=== PATIENT | male | born 1945 | race African-American/Black ===

== ENCOUNTER 2017-11-15 09:25 | Inpatient (IN) | payer MEDICARE ==
[2017-11-15] MEDS ORDERED: SODIUM CHLORIDE 0.9% 1,000 ML IV STA ×2 (10:33→12:36)
[2017-11-15] MEDS ORDERED: SODIUM CHLORIDE 0.9% 500 ML IV STA (10:33)
[2017-11-15] MEDS ORDERED: HYDROmorphone 0.5 MG/0.5 ML SYRINGE IM STA (10:33)
--- NOTE | 2017-11-15 10:51 | ED ---
Weakness HPI - General Chief complaint: Weakness Stated complaint: weakness in legs Time Seen by Provider: 11/15/17 10:07 Source: patient Mode of arrival: wheelchair - History of Present Illness Initial comments: This 72-year-old -[place] male presents with a complaint of weakness to his lower extremities. He states that this is been going on for many months. He has a hard time quantifying the timeframe. He does state that it seems worse over the past 2 weeks and then he was extremely weak since yesterday. He apparently is unable to bear any weight on his lower extremities since yesterday. He fell twice yesterday and once today trying to go to the bathroom. She denies any actual injuries. He does complain of some slight pain to his left femoral region. He denies any known head injuries. He does have diabetes but does not check his blood sugars. He is unsure if he has diabetic neuropathy. He denies any known fevers or chills. He is a very poor historian. He does relate that he injured his right shoulder 6 months ago and this is still been causing him pain and he has not had it checked out as of yet. He does utilize tobacco but denies any alcohol or drugs. He states that his only medical problems are diabetes and hypertension and he only takes medications for this. He denies any chest pain or shortness of breath. Upon further questioning, he relates that he was down on the floor for 4 hours yesterday. - Related Data Home Medications Medication Instructions Recorded Confirmed Lisinopril [Zestril] 5 mg PO DAILY 11/15/17 11/15/17 Metoprolol Tartrate [Lopressor] 25 mg PO BID 11/15/17 11/15/17 metFORMIN HCL [Glucophage] 500 mg PO BID 11/15/17 11/15/17 Allergies Allergy/AdvReac Type Severity Reaction Status Date / Time No Known Allergies Allergy Verified 11/15/17 10:07 Review of Systems ROS Statement: Those systems with pertinent positive or pertinent negative responses have been documented in the HPI. ROS Other: All systems not noted in ROS Statement are negative. Past Medical History Past Medical History: Diabetes Mellitus, Hypertension History of Any Multi-Drug Resistant Organisms: None Reported Past Surgical History: No Surgical Hx Reported Past Psychological History: No Psychological Hx Reported Smoking Status: Current every day smoker Past Alcohol Use History: None Reported Past Drug Use History: None Reported General Exam - General Exam Comments Initial Comments: GENERAL: The patient is well nourished and well hydrated. VITAL SIGNS: Heart rate, blood pressure, respiratory rate reviewed as recorded in nurse's notes. EYES: Pupils are round and reactive. Extraocular movements are intact. No conjunctival / lid redness or swelling. ENT: No external evidence of injury, swelling, or ecchymosis. Airway is patent. Throat is clear. NECK: Nontender. No swelling or evidence of injury. No subcutaneous emphysema. Trachea is midline. No thyroid mass. HEART: Regular rate and rhythm. Good peripheral pulses. LUNGS/CHEST: Breath sounds clear and equal bilaterally. No rales, rhonchi, or wheezes. No ecchymosis, subcutaneous emphysema, or tenderness. ABDOMEN: Abdomen soft without tenderness. No palpable masses or organomegaly. No peritoneal signs. No abdominal wall swelling or ecchymosis. EXTREMITIES: There is some slight tenderness noted to the mid left femur. There is mild tenderness noted to the right shoulder with pain upon range of motion. Normal muscle tone and function. No thoracolumbar tenderness. NEUROLOGIC: Sensation is grossly intact. Cranial nerve exam reveals face is symmetrical, tongue is midline, speech is clear. SKIN: No abrasions or ecchymosis is noted. No induration or masses noted. PSYCHIATRIC: Alert and oriented. Appropriate behavior and judgment. Course Vital Signs 11/15/17 11/15/17 09:50 13:06 Temperature 97.9 F Pulse Rate 93 70 Respiratory 18 16 Rate Blood Pressure 172/73 188/77 O2 Sat by Pulse 96 98 Oximetry Medical Decision Making - Medical Decision Making The patient was seen and examined. All diagnostics are reviewed. An IV is started and he is hydrated. The EKG shows a normal sinus rhythm at a rate of 87. There is some nonspecific ST-T wave changes noted in the inferolateral leads. There is evidence of left ventricular hypertrophy. The MA intervals 152 , QRS duration is 74, and the QTC intervals 421. The patient's chest x-ray showed possible mild pulmonary vascular congestion. The x-ray of the left femur is negative for fracture. His AP pelvis x-ray was negative. The computed tomography scan of the brain was also done and this showed some atrophic changes but no acute process. The laboratories reviewed and does show elevation of the troponin, CPK and significant elevation of the CPK. Possibility of some rhabdomyolysis certainly is possible. It does show that his renal function studies are elevated. He has some mild anemia. Exact cause of his weakness is not definitively determined. It is felt, however, that he would benefit from admission to the hospital for further treatment. He is agreeable. Case is discussed with Dr. Valentine and he is agreeable with admission with cardiac consultation and echocardiogram. - Lab Data Result diagrams: 11/15/17 11:20 11/15/17 11:20 Lab Results 11/15/17 11/15/17 11/15/17 Range/Units 11:20 11:20 11:20 WBC 8.2 (3.8-10.6) k/uL RBC 5.22 (4.30-5.90) m/uL Hgb 11.7 L (13.0-17.5) gm/dL Hct 38.8 L (39.0-53.0) % MCV 74.3 L (80.0-100.0) fL MCH 22.3 L (25.0-35.0) pg MCHC 30.1 L (31.0-37.0) g/dL RDW 17.1 H (11.5-15.5) % Plt Count 120 L (150-450) k/uL Neutrophils % 85 % Lymphocytes % 7 % Monocytes % 5 % Eosinophils % 1 % Basophils % 1 % Neutrophils # 7.0 (1.3-7.7) k/uL Lymphocytes # 0.6 L (1.0-4.8) k/uL Monocytes # 0.4 (0-1.0) k/uL Eosinophils # 0.1 (0-0.7) k/uL Basophils # 0.1 (0-0.2) k/uL Hypochromasia Moderate Anisocytosis Slight Microcytosis Moderate PT (9.0-12.0) sec INR (<1.2) APTT (22.0-30.0) sec Sodium 139 (137-145) mmol/L Potassium 4.7 (3.5-5.1) mmol/L Chloride 100 (98-107) mmol/L Carbon Dioxide 27 (22-30) mmol/L Anion Gap 12 mmol/L BUN 23 H (9-20) mg/dL Creatinine 1.58 H (0.66-1.25) mg/dL Est GFR (MDRD) Af Amer 53 (>60 ml/min/1.73 sqM) Est GFR (MDRD) Non-Af 43 (>60 ml/min/1.73 sqM) Glucose 165 H (74-99) mg/dL Calcium 9.3 (8.4-10.2) mg/dL Phosphorus 4.8 H (2.5-4.5) mg/dL Magnesium 1.8 (1.6-2.3) mg/dL Total Bilirubin 0.2 (0.2-1.3) mg/dL AST 66 H (17-59) U/L ALT 39 (21-72) U/L Alkaline Phosphatase 153 H (38-126) U/L Total Creatine Kinase 2324 H (55-170) U/L CK-MB (CK-2) 9.4 H* (0.0-2.4) ng/mL CK-MB (CK-2) Rel Index Troponin I 0.056 H* (0.000-0.034) ng/mL Total Protein 6.9 (6.3-8.2) g/dL Albumin 4.1 (3.5-5.0) g/dL TSH 0.875 (0.465-4.680) mIU/L Urine Color Urine Appearance (Clear) Urine pH (5.0-8.0) Ur Specific [place] (1.001-1.035) Urine Protein (Negative) Urine Glucose (UA) (Negative) Urine Ketones (Negative) Urine Blood (Negative) Urine Nitrite (Negative) Urine Bilirubin (Negative) Urine Urobilinogen (<2.0) mg/dL Ur Leukocyte Esterase (Negative) Urine RBC (0-5) /hpf Urine WBC (0-5) /hpf Ur Squamous Epith Cells (0-4) /hpf Hyaline Casts (0-2) /lpf Urine Mucus (None) /hpf 11/15/17 11/15/17 Range/Units 11:20 13:31 WBC (3.8-10.6) k/uL RBC (4.30-5.90) m/uL Hgb (13.0-17.5) gm/dL Hct (39.0-53.0) % MCV (80.0-100.0) fL MCH (25.0-35.0) pg MCHC (31.0-37.0) g/dL RDW (11.5-15.5) % Plt Count (150-450) k/uL Neutrophils % % Lymphocytes % % Monocytes % % Eosinophils % % Basophils % % Neutrophils # (1.3-7.7) k/uL Lymphocytes # (1.0-4.8) k/uL Monocytes # (0-1.0) k/uL Eosinophils # (0-0.7) k/uL Basophils # (0-0.2) k/uL Hypochromasia Anisocytosis Microcytosis PT 10.4 (9.0-12.0) sec INR 1.1 (<1.2) APTT 26.0 (22.0-30.0) sec Sodium (137-145) mmol/L Potassium (3.5-5.1) mmol/L Chloride (98-107) mmol/L Carbon Dioxide (22-30) mmol/L Anion Gap mmol/L BUN (9-20) mg/dL Creatinine (0.66-1.25) mg/dL Est GFR (MDRD) Af Amer (>60 ml/min/1.73 sqM) Est GFR (MDRD) Non-Af (>60 ml/min/1.73 sqM) Glucose (74-99) mg/dL Calcium (8.4-10.2) mg/dL Phosphorus (2.5-4.5) mg/dL Magnesium (1.6-2.3) mg/dL Total Bilirubin (0.2-1.3) mg/dL AST (17-59) U/L ALT (21-72) U/L Alkaline Phosphatase (38-126) U/L Total Creatine Kinase (55-170) U/L CK-MB (CK-2) (0.0-2.4) ng/mL CK-MB (CK-2) Rel Index Troponin I (0.000-0.034) ng/mL Total Protein (6.3-8.2) g/dL Albumin (3.5-5.0) g/dL TSH (0.465-4.680) mIU/L Urine Color Yellow Urine Appearance Clear (Clear) Urine pH 5.5 (5.0-8.0) Ur Specific [place] 1.013 (1.001-1.035) Urine Protein 2+ H (Negative) Urine Glucose (UA) Negative (Negative) Urine Ketones Trace H (Negative) Urine Blood Large H (Negative) Urine Nitrite Negative (Negative) Urine Bilirubin Negative (Negative) Urine Urobilinogen <2.0 (<2.0) mg/dL Ur Leukocyte Esterase Negative (Negative) Urine RBC 6 H (0-5) /hpf Urine WBC 3 (0-5) /hpf Ur Squamous Epith Cells <1 (0-4) /hpf Hyaline Casts 3 H (0-2) /lpf Urine Mucus Rare H (None) /hpf Disposition Clinical Impression: Lower extremity weakness, Inability to walk, Hypertension, Diabetes, Rhabdomyolysis, Renal insufficiency, Anemia, Recurrent falls Disposition: ADMITTED IP TO THIS [facility] Condition: Fair Time of Disposition: 14:06 Decision Date: 11/15/17 Decision Time: 14:06
[2017-11-15 11:39] LABS: Anisocytosis Slight; Basophils # (A) 0.1 k/uL (0-0.2); Basophils % (A) 1 %; Eosinophils # (A) 0.1 k/uL (0-0.7); Eosinophils % (A) 1 %; HCT 38.8 % (39.0-53.0); HGB 11.7 gm/dL (13.0-17.5); Hypochromasia Moderate; Lymphocytes # (A) 0.6 k/uL (1.0-4.8); Lymphocytes % (A) 7 %; MCH 22.3 pg (25.0-35.0); MCHC 30.1 g/dL (31.0-37.0); MCV 74.3 fL (80.0-100.0); Mean Platelet Volume 6.5; Microcytosis Moderate; Monocytes # (A) 0.4 k/uL (0-1.0); Monocytes % (A) 5 %; Neutrophils % (A) 85 %; Platelet Count 120 k/uL (150-450); RBC 5.22 m/uL (4.30-5.90); RDW 17.1 % (11.5-15.5); WBC 8.2 k/uL (3.8-10.6)
[2017-11-15 11:48] LABS: Albumin 4.1 g/dL (3.5-5.0); Calcium 9.3 mg/dL (8.4-10.2); Magnesium 1.8 mg/dL (1.6-2.3); Phosphorus 4.8 mg/dL (2.5-4.5); Potassium 4.7 mmol/L (3.5-5.1); Total Bilirubin 0.2 mg/dL (0.2-1.3); Total Protein 6.9 g/dL (6.3-8.2)
[2017-11-15 12:17] LABS: INR 1.1 (<1.2); Prothrombin Time 10.4 sec (9.0-12.0)
[2017-11-15 12:23] LABS: Creatine Kinase MB 9.4 ng/mL (0.0-2.4); Troponin I 0.056 ng/mL (0.000-0.034)
--- NOTE | 2017-11-15 12:24 | XR ---
EXAMINATION TYPE: XR chest 2V DATE OF EXAM: 11/15/2017 COMPARISON: NONE HISTORY: Shortness of breath TECHNIQUE: Frontal and lateral views of the chest are obtained. FINDINGS: Scattered senescent parenchymal changes noted. Hyperinflation compatible with COPD. No evidence for infiltrate. No evidence for atelectasis. Mild cardiomegaly without overt failure. Mild pulmonary venous congestion suggested. Mediastinal structures are stable and grossly unremarkable. No evidence for hilar prominence. Degenerative changes dorsal spine. IMPRESSION: 1. Mild cardiomegaly without overt failure. Mild pulmonary venous congestion suggested.
--- NOTE | 2017-11-15 12:26 | XR ---
EXAMINATION TYPE: XR pelvis AP view DATE OF EXAM: 11/15/2017 CLINICAL HISTORY: pain TECHNIQUE: Single view the pelvis is submitted. FINDINGS: No evidence for fracture, dislocation or bony lesion. Joint spaces are well-preserved. S I joints appear symmetric. IMPRESSION: 1. No acute fracture or dislocation seen. ICD 10 NO FRACTURE, INITIAL EVALUATION
--- NOTE | 2017-11-15 12:32 | XR ---
EXAMINATION TYPE: XR femur LT DATE OF EXAM: 11/15/2017 CLINICAL HISTORY: pain TECHNIQUE: Two views of the left femur are obtained. COMPARISON: None. FINDINGS: There is no acute fracture or dislocation seen of the femur. The hip and knee joints jacqueline ear within normal limits. The overlying soft tissue appears unremarkable. IMPRESSION: There is no acute fracture or dislocation seen of the femur. ICD 10 NO FRACTURE, INITIAL EVALUATION
[2017-11-15] MEDS ORDERED: ASPIRIN 81 MG PO STA (12:35)
[2017-11-15] MEDS ORDERED: NITROGLYCERIN OINT 1 INCH/GM PACKET TOPICAL STA (12:35)
--- NOTE | 2017-11-15 12:50 | CT ---
EXAMINATION TYPE: CT brain wo con DATE OF EXAM: 11/15/2017 COMPARISON: NONE HISTORY: Weakness Unenhanced CT of the brain was performed. The ventricles, basal cisterns and sulci overlying the cerebral convexities demonstrate mild enlargem ent. There is no evidence for intracranial hemorrhage or sulcal effacement. There is decreased attenuation about the periventricular white matter and deep white matter of both c erebral hemispheres, compatible with chronic small vessel ischemia. Differential diagnosis does inclu de demyelination. No mass effects are seen.No midline shift. Osseous calvarium is intact. If symptoms persist consider MRI. IMPRESSION: 1. Age related atrophic and chronic small vessel ischemic change without acute intracranial process s een at this time.
[2017-11-15 13:44] LABS: Appearance,Urine Clear (Clear); Bilirubin,Urine Negative (Negative); Blood,Urine Large (Negative); Color,Urine Yellow; Glucose,Urine (UA) Negative (Negative); Hyaline Casts,Urine 3 /lpf (0-2); Ketones,Urine Trace (Negative); Leukocyte Esterase,Urine Negative (Negative); Mucus,Urine Rare /hpf; Nitrite,Urine Negative (Negative); PH, Urine 5.5 (5.0-8.0); Protein,Urine 2+ (Negative); RBC,Urine 6 /hpf (0-5); Specific Gravity,Urine 1.013 (1.001-1.035); Squamous Epithelial Cell,Urine <1 /hpf (0-4); Urobilinogen,Urine <2.0 mg/dL (<2.0); WBC,Urine 3 /hpf (0-5)
[2017-11-15] MEDS ORDERED: HEPARIN SODIUM,PORCINE 5,000 UNIT/ML 1 ML VIAL IV ONE (14:07)
[2017-11-15] MEDS ORDERED: LABETALOL 5 MG/ML VIAL MDV IVP STA (14:07)
[2017-11-15] MEDS ORDERED: HEPARIN SODIUM,PORCINE 5,000 UNIT/ML 1 ML VIAL IV PRN (14:07)
[2017-11-15] MEDS ORDERED: hydrALAZINE HCL 20 MG/ML 1 ML VIAL IVP PRN (14:14)
[2017-11-15] MEDS ORDERED: HEPARIN SOD,PORK IN 0.45% NACL 25,000 UNIT in 0.45% NACL 1 500ML.BAG IV SCH (14:15)
--- NOTE | 2017-11-15 14:40 | XR ---
EXAMINATION TYPE: XR shoulder complete RT DATE OF EXAM: 11/15/2017 CLINICAL HISTORY: pain TECHNIQUE: Three views of the right shoulder are obtained. COMPARISON: None FINDINGS: There is no acute fracture/dislocation evident. Mild AC joint arthropathy. Distal clavicul ar asymmetry relative to the acromion may be congenital in nature or related to prior trauma. The vis ualized ribs are intact and unremarkable. IMPRESSION: 1. There is no acute fracture or dislocation. ICD 10 NO FRACTURE, INITIAL EVALUATION
[2017-11-15] MEDS ORDERED: metFORMIN 500 MG TAB PO SCH (17:30)
[2017-11-15 18:54] LABS: Creatine Kinase MB 20.1 ng/mL (0.0-2.4)
[2017-11-15 18:55] LABS: Troponin I 0.058 ng/mL (0.000-0.034)
[2017-11-15] MEDS: NITROGLYCERIN OINT 1 INCH/GM PACKET TOPICAL SCH (18:59)
[2017-11-15] MEDS: ACETAMINOPHEN TAB 325 MG TAB PO PRN (22:47)
[2017-11-15] MEDS: METOPROLOL TARTRATE 25 MG TAB PO SCH (22:48)
--- NOTE | 2017-11-15 23:23 | P.HPIM ---
History of Present Illness H&P Date: 11/15/17 Chief Complaint: Bilateral lower extremity weakness Patient is a 72-year-old male with a known history of hypertension, diabetes type 2 [id number] came to the hospital with complaints of weakness in his both legs. As per the patient returned has been going on for the past few months which is getting worse for the past 2 weeks. Yesterday he fell on the ground due to he was unable to bear his weight. He fell twice yesterday and once today trying to go to the bathroom. He was on the ground apparently for about 4 hours until his son came in. Otherwise a lemons denied any complaints of chest pain or shortness of breath. No fever no chills. Patient has been having cough congestion and cold as well as a runny nose for the past 2 -3 months as per the patient. Patient denied any alcohol abuse. Patient says that he has been taking his diabetic medications regularly. Otherwise patient is a poor historian. No recent travel or sick contacts at home. Patient lives alone by himself. Chest x-ray showed mild vascular congestion CT head showed no acute intracranial process. Is related chronic small vessel ischemic changes noted. CPK level elevated greater than 2K Troponin slightly elevated. TSH within normal limits UA negative Review of Systems Constitutional: Patient denies any fever or chills . Does have lower extremity weakness. Denied any weight loss or loss of appetite.. Abdomen: Patient denied nausea vomiting and diarrhea and abdominal pain. Cardiovascular: Patient denies any chest pain or short of breath no palpitations. Respiratory: patient denied any cough is from production. No shortness of breath Neurologic: Patient does have bilateral lower activity weakness. No numbness or tingling. No upper extremity weakness. No headache. Musculoskeletal: Patient denies any complaints of joint swelling or deformity. Skin: Negative Psychiatric: Negative Endocrine: No heat or cold intolerance. No recent weight gain. Genitourinary: No dysuria or hematuria. All other 14 point ROS negative except the above Past Medical History Past Medical History: Diabetes Mellitus, Hypertension History of Any Multi-Drug Resistant Organisms: None Reported Past Surgical History: No Surgical Hx Reported Past Anesthesia/Blood Transfusion Reactions: No Reported Reaction Smoking Status: Current every day smoker - Past Family History Father History Unknown: Yes Mother History Unknown: Yes Medications and Allergies Home Medications Medication Instructions Recorded Confirmed Type Lisinopril [Zestril] 5 mg PO DAILY 11/15/17 11/15/17 History Metoprolol Tartrate [Lopressor] 25 mg PO BID 11/15/17 11/15/17 History metFORMIN HCL [Glucophage] 500 mg PO BID 11/15/17 11/15/17 History Allergies Allergy/AdvReac Type Severity Reaction Status Date / Time No Known Allergies Allergy Verified 11/15/17 10:07 Physical Exam Vitals: Vital Signs Temp Pulse Resp BP Pulse Ox 11/15/17 14:37 85 18 197/86 95 11/15/17 13:06 70 16 188/77 98 11/15/17 09:50 97.9 F 93 18 172/73 96 Intake and Output 11/15/17 11/15/17 11/15/17 06:59 14:59 22:59 Other: Weight 58.967 kg Patient Weight 11/16/17 06:59 Weight 58.967 kg PHYSICAL EXAMINATION: Patient is lying in the bed comfortably, no acute distress, awake alert and oriented.. HEENT: Normocephalic. Neck is supple. Pupils reactive. Nostrils clear. Oral cavity is moist. Ears reveal no drainage. Neck reveals no JVD, carotid bruits, or thyromegaly. CHEST EXAMINATION: Trachea is central. Symmetrical expansion. Lung gregory clear to auscultation and percussion. CARDIAC: Normal S1, S2 with no gallops. No murmurs ABDOMEN: Soft. Bowel sounds normal. No organomegaly. No abdominal bruits. Extremities: reveal no edema. No clubbing or cyanosis Neurologically awake, alert, oriented x3 with well-coordinated movements. Muscle strength 4 out of 5 on bilateral lower extremity. No focal deficits noted Skin: No rash or skin lesions. Psychiatric: Cooperative. Nonsuicidal Musculoskeletal: No joint swelling or deformity. Normal range of motion. Results CBC & Chem 7: 11/15/17 11:20 11/15/17 11:20 Labs: Abnormal Lab Results - Last 24 Hours (Table) 11/15/17 11/15/17 11/15/17 Range/Units 11:20 11:20 11:20 Hgb 11.7 L (13.0-17.5) gm/dL Hct 38.8 L (39.0-53.0) % MCV 74.3 L (80.0-100.0) fL MCH 22.3 L (25.0-35.0) pg MCHC 30.1 L (31.0-37.0) g/dL RDW 17.1 H (11.5-15.5) % Plt Count 120 L (150-450) k/uL Lymphocytes # 0.6 L (1.0-4.8) k/uL BUN 23 H (9-20) mg/dL Creatinine 1.58 H (0.66-1.25) mg/dL Glucose 165 H (74-99) mg/dL Phosphorus 4.8 H (2.5-4.5) mg/dL AST 66 H (17-59) U/L Alkaline Phosphatase 153 H (38-126) U/L Total Creatine Kinase 2324 H (55-170) U/L CK-MB (CK-2) 9.4 H* (0.0-2.4) ng/mL Troponin I 0.056 H* (0.000-0.034) ng/mL Urine Protein (Negative) Urine Ketones (Negative) Urine Blood (Negative) Urine RBC (0-5) /hpf Hyaline Casts (0-2) /lpf Urine Mucus (None) /hpf 11/15/17 Range/Units 13:31 Hgb (13.0-17.5) gm/dL Hct (39.0-53.0) % MCV (80.0-100.0) fL MCH (25.0-35.0) pg MCHC (31.0-37.0) g/dL RDW (11.5-15.5) % Plt Count (150-450) k/uL Lymphocytes # (1.0-4.8) k/uL BUN (9-20) mg/dL Creatinine (0.66-1.25) mg/dL Glucose (74-99) mg/dL Phosphorus (2.5-4.5) mg/dL AST (17-59) U/L Alkaline Phosphatase (38-126) U/L Total Creatine Kinase (55-170) U/L CK-MB (CK-2) (0.0-2.4) ng/mL Troponin I (0.000-0.034) ng/mL Urine Protein 2+ H (Negative) Urine Ketones Trace H (Negative) Urine Blood Large H (Negative) Urine RBC 6 H (0-5) /hpf Hyaline Casts 3 H (0-2) /lpf Urine Mucus Rare H (None) /hpf Thrombosis Risk Factor Assmnt - DVT/VTE Prophylaxis DVT/VTE Prophylaxis: Pharmacologic Prophylaxis ordered Assessment and Plan Assessment: Status post fall due to bilateral lower admitted weakness. Exact etiology unknown. CT head negative for any acute CVA Severe rhabdomyolysis Elevated troponin level. Likely due to rhabdo and possible NSTEMI Hypertension Diabetes type 2 [id number] Microcytic anemia. Rule out iron deficiency Acute kidney injury. Likely prerenal. Possible ATN DVT prophylaxis. Plan: Patient be continued on gentle hydration due to mild pulmonary vascular congestion. 2-D echo was ordered to rule out CHF. We will check BNP level Cardiology was consulted for elevated troponin level and heparin drip was started. Iron profile will be ordered. TSH within normal limits. Continue with CPK level monitoring and renal function follow-up. Continue the home medications. Check his B A1c. Further recommendations based on the clinical course. Prognosis is guarded with multiple medical problems and comorbid conditions Time with Patient: Greater than 30
[2017-11-16 00:53] LABS: Creatine Kinase MB 11.6 ng/mL (0.0-2.4)
[2017-11-16 00:54] LABS: Troponin I 0.057 ng/mL (0.000-0.034)
[2017-11-16] MEDS: NITROGLYCERIN OINT 1 INCH/GM PACKET TOPICAL SCH (04:41)
[2017-11-16] MEDS: SODIUM CHLORIDE 0.9% 1,000 ML IV SCH ×3 (04:42→13:32)
[2017-11-16] MEDS: ACETAMINOPHEN TAB 325 MG TAB PO PRN (04:42)
[2017-11-16] MEDS ORDERED: FUROSEMIDE 10 MG/ML 4 ML VIAL ONE (04:51)
[2017-11-16] MEDS ORDERED: FUROSEMIDE 10 MG/ML 4 ML VIAL IV STA ×2 (04:54→07:53)
[2017-11-16] MEDS ORDERED: ALPRAZolam 0.25 MG TAB PO PRN (04:57)
--- NOTE | 2017-11-16 05:22 | XR ---
EXAM: XR Chest, 1 View CLINICAL HISTORY: Dyspnea TECHNIQUE: Frontal view of the chest. COMPARISON: Chest x-ray dated 11/15/2017 FINDINGS: Lungs: Airspace opacities in the mid to upper lungs. No focal consolidation. Pleural space: No pleural effusion or pneumothorax. Heart: Unremarkable. No cardiomegaly. Mediastinum: Unremarkable. Bones/joints: Degenerative changes in the osseous structures. IMPRESSION: Airspace opacities in the mid to upper lungs likely representing an inflammatory or infectious process and less likely pulmonary vascular congestion.
[2017-11-16 05:42] LABS: Anisocytosis Slight; Basophils # (A) 0.1 k/uL (0-0.2); Basophils % (A) 1 %; Eosinophils % (A) 0 %; HGB 11.4 gm/dL (13.0-17.5); Hypochromasia Marked; Lymphocytes # (A) 2.6 k/uL (1.0-4.8); Lymphocytes % (A) 24 %; MCH 22.2 pg (25.0-35.0); MCHC 29.9 g/dL (31.0-37.0); MCV 74.1 fL (80.0-100.0); Mean Platelet Volume 9.9; Microcytosis Moderate; Monocytes # (A) 0.5 k/uL (0-1.0); Monocytes % (A) 4 %; Neutrophils # (A) 7.4 k/uL (1.3-7.7); Neutrophils % (A) 69 %; Platelet Count 128 k/uL (150-450); RBC 5.12 m/uL (4.30-5.90); RDW 18.5 % (11.5-15.5); WBC 10.8 k/uL (3.8-10.6)
[2017-11-16 05:48] LABS: Glucose,Whole Blood 315 mg/dL (75-99)
[2017-11-16 05:52] LABS: Anion Gap 11 mmol/L; Blood Urea Nitrogen 22 mg/dL (9-20); Calcium 8.4 mg/dL (8.4-10.2); Carbon Dioxide 23 mmol/L (22-30); Chloride 106 mmol/L (98-107); Cholesterol 228 mg/dL (<200); Glucose 217 mg/dL (74-99); HDL Cholesterol 77 mg/dL (40-60); LDL Cholesterol,Calculated 123 mg/dL (0-99); Potassium 4.3 mmol/L (3.5-5.1); Sodium 140 mmol/L (137-145); Triglycerides 138 mg/dL (<150)
[2017-11-16] MEDS ORDERED: PHENYLEPHRINE-0.9% NACL SYG 1 MG/10 ML SYRINGE ONE (06:00)
[2017-11-16] MEDS ORDERED: PROPOFOL 10 MG/ML 20 ML VIAL IV ONE (06:00)
[2017-11-16] MEDS ORDERED: MIDAZOLAM 2 MG/2 ML VIAL ONE (06:00)
[2017-11-16] MEDS ORDERED: SUCCINYLCHOLINE CHLORIDE 100 MG/5 ML SYR IV ONE (06:00)
[2017-11-16] MEDS ORDERED: NALOXONE 0.4 MG/ML 1 ML VIAL IV PRN (06:13)
[2017-11-16] MEDS ORDERED: PROPOFOL 100 ML IV ONE (06:13)
[2017-11-16 06:17] LABS: Glucose,Whole Blood 251 mg/dL (75-99)
[2017-11-16 06:28] LABS: Creatine Kinase 7814 U/L (55-170)
[2017-11-16] MEDS: PROPOFOL 1,000 MG in EMPTY BAG 1 BAG IV SCH ×2 (06:30→15:30)
[2017-11-16 06:32] LABS: ABG Base Excess -4.4 mmol/L; ABG HCO3 23 mmol/L (21-25); ABG PCO2 61 mmHg (35-45); ABG PO2 76 mmHg (83-108); ABG TCO2 24 mmol/L (19-24)
[2017-11-16 06:45] LABS: Magnesium 1.6 mg/dL (1.6-2.3); Phosphorus 3.8 mg/dL (2.5-4.5)
--- NOTE | 2017-11-16 07:09 | XR ---
EXAM: XR Chest, 1 View CLINICAL HISTORY: Tube placement TECHNIQUE: Frontal view of the chest. COMPARISON: 11/16/2017 at 5:03 AM FINDINGS: Lungs: Again seen are airspace opacities within the mid to upper lungs. Pleural space: Unremarkable. No pneumothorax. Heart: Unchanged cardiomediastinal silhouette. Mediastinum: See above. Bones/joints: Unchanged osseous structures. Tubes, lines and devices: Interval placement of endotracheal tube which terminates at the rachel. Recommend retraction by 3 cm Enteric tube is seen coursing the stomach however the tip is not visualized. IMPRESSION: 1. Interval placement of endotracheal tube which terminates at the rachel. Recommend retraction by 3 cm. 2. Enteric tube is seen coursing the stomach however the tip is not visualized. 3. Again seen are airspace opacities of the mid to upper lungs.
[2017-11-16 07:31] LABS: ABG Base Excess -4.5 mmol/L; ABG HCO3 20 mmol/L (21-25); ABG Oxygen Saturation 99.7 % (94-97); ABG PCO2 38 mmHg (35-45); ABG PH 7.35 (7.35-7.45); ABG PO2 206 mmHg (83-108); ABG TCO2 21 mmol/L (19-24)
[2017-11-16] MEDS: IPRATROPIUM-ALBUTEROL 3 ML NEB INHALATION SCH ×5 (08:10→23:40)
[2017-11-16] MEDS ORDERED: ASPIRIN 325 MG TAB PO SCH (09:00)
[2017-11-16] MEDS ORDERED: LISINOPRIL 5 MG TAB PO SCH (09:00)
[2017-11-16] MEDS ORDERED: Magnesium Replacement Protocol 1 EACH MISC MISCELLANE PRN (09:23)
[2017-11-16 09:25] LABS: Glucose,Whole Blood 242 mg/dL (75-99)
--- NOTE | 2017-11-16 09:35 | P.CNPUL ---
History of Present Illness Consult date: 11/16/17 Reason for consult: hypoxemia, abnormal CXR/CT, other Chief complaint: Weakness History of present illness: Consult dated 11/16/2017 72-year-old black male who presented to the hospital with complaints of weakness in his lower extremities. The patient apparently had multiple falls at home. The weakness apparently was worse over the last couple weeks. He presented with an episode of rhabdomyolysis and subsequently went on to develop renal fire with fluid overload. The patient apparently had progressive shortness of breath out on the floor and sometime early this morning went into chencho distress. He was placed on BiPAP therapy and percent oxygen by the hospitalist. Subsequent to that, he was moved to the ICU but because of progressive decline in his respiratory status, he required intubation and mechanical ventilation. I put him on the ventilator at the assist control mode , rate of 20 tidal volume 400 and FiO2 100% and PEEP of 5. The patient currently is down to 50% FiO2. The rest of the studies of the same. The patient's currently on diprovan or propofol at 40 mics per kilogram per minute. Also receiving a saline IV at 20 mL an hour. Her blood gases prior to intubation included a PaO2 of 76 a PaCO2 of 61 and a pH of 7.2. Post intubation , PaO2 was 206 PaCO2 was 38 and pH of 7.35. The second blood gas was consistent with hyperoxia and a mild metabolic acidosis. Review of Systems ROS unobtainable: due to endotracheal tube Past Medical History Past Medical History: Diabetes Mellitus, Hypertension History of Any Multi-Drug Resistant Organisms: None Reported Past Surgical History: No Surgical Hx Reported Past Anesthesia/Blood Transfusion Reactions: No Reported Reaction Smoking Status: Current every day smoker - Past Family History Father History Unknown: Yes Mother History Unknown: Yes Medications and Allergies Home Medications Medication Instructions Recorded Confirmed Type Lisinopril [Zestril] 5 mg PO DAILY 11/15/17 11/15/17 History Metoprolol Tartrate [Lopressor] 25 mg PO BID 11/15/17 11/15/17 History metFORMIN HCL [Glucophage] 500 mg PO BID 11/15/17 11/15/17 History Allergies Allergy/AdvReac Type Severity Reaction Status Date / Time No Known Allergies Allergy Verified 11/15/17 10:07 Physical Exam Osteopathic Statement: *. No significant issues noted on an osteopathic structural exam other than those noted in the History and Physical/Consult. Vitals: Vital Signs Temp Pulse Pulse Resp BP BP Pulse Ox 11/16/17 09:00 107 H 20 112/54 100 11/16/17 08:30 109 H 21 98/56 100 11/16/17 08:12 110 H 11/16/17 08:00 109 H 34 H 116/57 98 11/16/17 07:50 110 H 41 H 121/52 97 11/16/17 07:40 110 H 39 H 122/57 100 11/16/17 07:30 113 H 35 H 117/51 100 11/16/17 07:20 112 H 100 11/16/17 07:10 113 H 100 11/16/17 07:00 115 H 112/55 100 11/16/17 06:50 116 H 98/60 97 11/16/17 06:40 113 H 45 H 144/64 98 11/16/17 06:30 122 H 45 H 106/58 97 11/16/17 06:20 122 H 45 H 91/55 96 11/16/17 06:10 144 H 45 H 214/118 96 11/16/17 06:00 102 F H 144 H 45 H 11/16/17 05:59 142 H 11/16/17 04:00 101.5 F H 109 H 24 214/90 95 11/16/17 00:00 97.6 F 93 20 172/110 95 11/15/17 20:00 98.0 F 89 22 147/79 100 11/15/17 17:55 98.9 F 82 18 146/80 100 11/15/17 17:51 97.9 F 72 18 156/68 100 11/15/17 17:23 72 18 156/68 100 11/15/17 16:00 75 18 180/84 99 11/15/17 14:37 85 18 197/86 95 11/15/17 13:06 70 16 188/77 98 11/15/17 09:50 97.9 F 93 18 172/73 96 Intake and Output 11/15/17 11/16/17 11/16/17 22:59 06:59 14:59 Intake Total 19.25 Output Total 400 600 80 Balance -400 -600 -60.75 Intake: IV 10 Sodium Chloride 0.9% 1, 10 000 ml @ 100 mls/hr IV . Q10H [facility] Rx#:[id number] Intake, IV Titration 9.25 Amount Propofol 1,000 mg In 9.25 Empty Bag 1 bag @ Titrate IV .Q0M [facility] Rx#: [id number] Output: Urine 400 600 80 Other: Voiding Method Urinal Urinal # Voids 1 Weight 58.967 kg 60.6 kg No acute distress. The patient is sedated. The patient is on the ventilator. There is an orally placed NG tube and endotracheal tube noted. HEENT examination is grossly unremarkable. Mucous membranes are moist. No oral lesions. Neck supple. Full range of motion. No adenopathy thyromegaly or neck vein distention. Cardiovascular examination reveals regular rhythm rate. S1-S2 normal. No S3 or S4. No discernible murmur noted. Lungs reveal some bilateral breath sounds. There are coarse bilateral rhonchi and bilateral crackles. No wheezes. Breath sounds are equal bilaterally.. Abdomen soft bowel sounds are heard. No masses or tenderness. Extremities are intact. No cyanosis clubbing or edema. Skin is without rash or lesion. Neurologic examination cannot be performed. Results - Laboratory Findings CBC and BMP: 11/16/17 04:51 11/16/17 04:51 ABG ABG pH 7.35 (7.35-7.45) 11/16/17 07:19 ABG pCO2 38 mmHg (35-45) 11/16/17 07:19 ABG pO2 206 mmHg (83-108) H 11/16/17 07:19 ABG O2 Saturation 99.7 % (94-97) H 11/16/17 07:19 PT/INR, D-dimer PT 10.4 sec (9.0-12.0) 11/15/17 11:20 INR 1.1 (<1.2) 11/15/17 11:20 Abnormal lab findings: Abnormal Labs 11/15/17 11/15/17 11/15/17 11:20 11:20 11:20 WBC Hgb 11.7 L Hct 38.8 L MCV 74.3 L MCH 22.3 L MCHC 30.1 L RDW 17.1 H Plt Count 120 L Lymphocytes # 0.6 L APTT ABG pH ABG pCO2 ABG pO2 ABG HCO3 ABG O2 Saturation BUN 23 H Creatinine 1.58 H Glucose 165 H POC Glucose (mg/dL) Phosphorus 4.8 H AST 66 H Alkaline Phosphatase 153 H Creatine Kinase Total Creatine Kinase 2324 H CK-MB (CK-2) 9.4 H* Troponin I 0.056 H* Cholesterol LDL Cholesterol, Calc HDL Cholesterol Urine Protein Urine Ketones Urine Blood Urine RBC Hyaline Casts Urine Mucus 11/15/17 11/15/17 11/15/17 13:31 18:00 23:54 WBC Hgb Hct MCV MCH MCHC RDW Plt Count Lymphocytes # APTT ABG pH ABG pCO2 ABG pO2 ABG HCO3 ABG O2 Saturation BUN Creatinine Glucose POC Glucose (mg/dL) Phosphorus AST Alkaline Phosphatase Creatine Kinase Total Creatine Kinase 5786 H 6419 H CK-MB (CK-2) 20.1 H* 11.6 H* Troponin I 0.058 H* 0.057 H* Cholesterol LDL Cholesterol, Calc HDL Cholesterol Urine Protein 2+ H Urine Ketones Trace H Urine Blood Large H Urine RBC 6 H Hyaline Casts 3 H Urine Mucus Rare H 11/15/17 11/16/17 11/16/17 23:54 01:20 04:51 WBC 10.8 H Hgb 11.4 L Hct 38.0 L MCV 74.1 L MCH 22.2 L MCHC 29.9 L RDW 18.5 H Plt Count 128 L Lymphocytes # APTT 44.3 H 45.8 H ABG pH ABG pCO2 ABG pO2 ABG HCO3 ABG O2 Saturation BUN Creatinine Glucose POC Glucose (mg/dL) Phosphorus AST Alkaline Phosphatase Creatine Kinase Total Creatine Kinase CK-MB (CK-2) Troponin I Cholesterol LDL Cholesterol, Calc HDL Cholesterol Urine Protein Urine Ketones Urine Blood Urine RBC Hyaline Casts Urine Mucus 11/16/17 11/16/17 11/16/17 04:51 04:51 05:40 WBC Hgb Hct MCV MCH MCHC RDW Plt Count Lymphocytes # APTT 57.9 H ABG pH 7.20 L* ABG pCO2 61 H ABG pO2 76 L ABG HCO3 ABG O2 Saturation 91.0 L BUN 22 H Creatinine Glucose 217 H POC Glucose (mg/dL) Phosphorus AST Alkaline Phosphatase Creatine Kinase 7814 H Total Creatine Kinase CK-MB (CK-2) Troponin I Cholesterol 228 H LDL Cholesterol, Calc 123 H HDL Cholesterol 77 H Urine Protein Urine Ketones Urine Blood Urine RBC Hyaline Casts Urine Mucus 11/16/17 11/16/17 11/16/17 05:45 06:16 07:19 WBC Hgb Hct MCV MCH MCHC RDW Plt Count Lymphocytes # APTT ABG pH ABG pCO2 ABG pO2 206 H ABG HCO3 20 L ABG O2 Saturation 99.7 H BUN Creatinine Glucose POC Glucose (mg/dL) 315 H 251 H Phosphorus AST Alkaline Phosphatase Creatine Kinase Total Creatine Kinase CK-MB (CK-2) Troponin I Cholesterol LDL Cholesterol, Calc HDL Cholesterol Urine Protein Urine Ketones Urine Blood Urine RBC Hyaline Casts Urine Mucus - Diagnostic Findings Chest x-ray: image reviewed (Labs x-rays a medications are all reviewed.) Assessment and Plan (1) Fluid overload Current Visit: Yes Status: Acute Code(s): E87.70 - FLUID OVERLOAD, UNSPECIFIED SNOMED Code(s): 76888049 (2) Acute kidney injury Current Visit: Yes Status: Acute Code(s): N17.9 - ACUTE KIDNEY FAILURE, UNSPECIFIED SNOMED Code(s): 97855764 (3) Anemia Current Visit: Yes Status: Acute Code(s): D64.9 - ANEMIA, UNSPECIFIED SNOMED Code(s): 139120238 (4) Diabetes Current Visit: Yes Status: Acute Code(s): E11.9 - TYPE 2 DIABETES MELLITUS WITHOUT COMPLICATIONS SNOMED Code(s): 38778554 (5) Hypertension Current Visit: Yes Status: Acute Code(s): I10 - ESSENTIAL (PRIMARY) HYPERTENSION SNOMED Code(s): 33015436 (6) Lower extremity weakness Current Visit: Yes Status: Acute Code(s): R29.898 - OTH SYMPTOMS AND SIGNS INVOLVING THE MUSCULOSKELETAL SYSTEM SNOMED Code(s): 615766999 (7) Renal insufficiency Current Visit: Yes Status: Acute Code(s): N28.9 - DISORDER OF KIDNEY AND URETER, UNSPECIFIED SNOMED Code(s): 541620907 (8) Rhabdomyolysis Current Visit: Yes Status: Acute Code(s): M62.82 - RHABDOMYOLYSIS SNOMED Code(s): 934771805 Plan: Plan dated 11/16/2017 The patient will remain on the ventilator. Vent settings have been adjusted accordingly. We'll make sure the patient is on GI and DVT prophylaxis. We'll get nutrition started right away. The FiO2 was dropped from 100 to 50%. Additional recommendations and suggestions are forthcoming. Endotracheal tube was put pulled back 2 cm. Nephrology consultation. The patient be started on enteral nutrition. Labs x-rays a medications are all reviewed. Time with Patient: Greater than 30
[2017-11-16] MEDS ORDERED: SODIUM CHLORIDE 0.9% 1,000 ML IV ONE (09:58)
[2017-11-16] MEDS: INSULIN ASPART 100 UNIT/ML 1 ML 10 ML VIAL SQ SCH ×5 (10:04→23:44)
[2017-11-16] MEDS: MAGNESIUM SULFATE-D5W PMX 1 GM in DEXTROSE/WATER 1 100ML.BAG IVPB SCH ×2 (10:05→11:01)
--- NOTE | 2017-11-16 10:11 | ECHOF ---
Referral Reason:chf MEASUREMENTS -------- HEIGHT: 165.1 cm WEIGHT: 59.0 kg BP: IVSd: 1.3 cm (0.6 - 1.1) LVIDd: 3.8 cm (3.9 - 5.3) LVPWd: 1.4 cm (0.6 - 1.1) IVSs: 1.4 cm LVIDs: 3.2 cm LVPWs: 1.6 cm LA Diam: 4.0 cm (2.7 - 3.8) Ao Diam: 2.8 cm (2.0 - 3.7) AV Cusp: 1.5 cm (1.5 - 2.6) LA Diam: 3.8 cm (2.7 - 3.8) MV EXCURSION: 14.881 mm (> 18.000) MV EF SLOPE: 89 mm/s (70 - 150) EPSS: 0.9 cm MV E Jose Armando: 0.80 m/s MV DecT: 147 ms MV A Jose Armando: 0.73 m/s MV E/A Ratio: 1.10 AR PHT: 371 ms RAP: 5.00 mmHg RVSP: 35.00 mmHg FINDINGS -------- Sinus rhythm. This was a technically good study. The left ventricular size is normal. There is moderate concentric left ventricular hypertrophy. O verall left ventricular systolic function is low-normal with, an EF between 50 - 55 %. The right ventricle is normal in size. The left atrial size is normal. The right atrial size is normal. There is mild aortic valve sclerosis. There is [id number]-[id number] aortic regurgitation. Mild mitral annular calcification present. Mild mitral regurgitation is present. Mild tricuspid regurgitation present. There is mild pulmonary hypertension. The right ventricular systolic pressure, as measured by Doppler, is 35.00mmHg. Trace/mild (physiologic) pulmonic regurgitation. The aortic root size is normal. There is no pericardial effusion. CONCLUSIONS -------- 1. The left ventricular size is normal. 2. There is moderate concentric left ventricular hypertrophy. 3. Overall left ventricular systolic function is low-normal with, an EF between 50 - 55 %. 4. There is mild aortic valve sclerosis. 5. There is [id number]-[id number] aortic regurgitation. 6. Mild mitral annular calcification present. 7. Mild mitral regurgitation is present. 8. Mild tricuspid regurgitation present. 9. There is mild pulmonary hypertension. 10. The right ventricular systolic pressure, as measured by Doppler, is 35.00mmHg. 11. Trace/mild (physiologic) pulmonic regurgitation. 12. The aortic root size is normal. 13. There is no pericardial effusion. STUNT PERSON: Mary Boyer RDCS
--- NOTE | 2017-11-16 10:15 | CONS ---
CONSULTATION Mr. Samuels is a 72-year-old male who was admitted through the emergency room with symptoms of progressive weakness, lack of energy, was found by his son on the bathroom. The detail of the history is quite limited. There is a no clear documentation of syncope. During the night, patient became more dyspneic and requiring mechanical ventilation. He is intubated and sedated at this time. He is in sinus mechanism. There is no evidence of tachycardia or bradycardia. There are no old records available for evaluation. It is unclear if the patient had syncopal episode or had chest discomfort. Apparently, he has been feeling progressively weak over the last few months according to the records, unable to wear bear his weight and he has fallen. MEDICATION: At the time of presentation included metoprolol tartrate 25 mg twice a day, Zestril 5 mg daily and metformin 500 mg twice a day. REVIEW OF SYSTEMS: Not obtainable. PHYSICAL EXAMINATION: He is a 72-year-old male, intubated, sedated. Thin body mass. Was hypertensive on presentation, at this time after intubation his blood pressure 116/50 with a heart rate in the low 100s with sinus tachycardia. HEAD: Normocephalic. Eyes sclerae nonicteric. NECK: No bruit. LUNGS: No wheezes or rales anteriorly. HEART: Regular rate and rhythm, S1, S2. No S3. No rub or gallop appreciated. ABDOMEN: Soft. No organomegaly. Positive bowel sounds. EXTREMITIES: No edema, +1 distal pulses. LAB DATA: Revealed a chest x-ray that shows upper lobe possible infiltrate on top of congestion. His EKG revealed a sinus mechanism with no acute ST-segment changes and evidence of left ventricular hypertrophy. His lab data revealed a hemoglobin of 11.4, white blood cell of 10.8. His BUN and creatinine are 22 and 1.2. His CK enzymes on presentation 2,324 up to 7,814. His troponin 0.056, 0.058, 0.057. NT proBNP is 1,050. His BUN creatinine 23 and 1.58 on presentation, better now. IMPRESSION: 1. Respiratory failure with possible pneumonia on top of congestion. 2. Progressive weakness, etiology unclear. 3. Elevated CK enzyme consistent with rhabdomyolysis. The elevation of his troponin is nondiagnostic. 4. Prior history of hypertension. 5. Prior history of diabetes mellitus. RECOMMENDATION: From the cardiac standpoint, I will review the results of his echocardiogram. Patient received a dose of diuretics. Will need to follow his renal function very closely because he may require hydration because of the elevation of his CK. I will hold his Zestril at this time. Continue the beta nathaniel. Will continue on the nitrate. Follow his heart rate and blood pressure closely and depending on his progress, further recommendation will be made. Thank you for this consult. Will follow with you end. VIOLET / HOOD: [id number] /
[2017-11-16] MEDS ORDERED: SODIUM CHLORIDE 0.9% 500 ML IV ONE (11:55)
--- NOTE | 2017-11-16 12:17 | CDI ---
Last Revision, October 2017 Documentation Clarification Form Date: 11/16/2017 11:58:00 AM From: Nila MahmoodJUANITA, CCDS Admit Date: 11/15/2017 2:07:00 PM Patient Name: Timothy Samuels Visit Number: [id number] Discharge Date: ATTENTION: The Clinical Documentation Specialists (CDI) and [facility] Coding Staff appreciate your assistance in clarifying documentation. Please respond to the clarification below the line at the bottom and electronically sign. The CDI & [facility] Coding staff will review the response and follow-up if needed. Please note: Queries are made part of the Legal Health Record. If you have any questions, please contact the author of this message via ITS. 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 four hours. After admission, the patient developed progressive SOB, went into "chencho" distress and required intubation & ventilation. History/Risk Factors: Hypertension, NIDDM II, current smoker. Clinical Indicators: VS: T 102, P 144, R 45, BP 214/90, PO 95 2Lnc - 96 vent Lung/Breathing assessment: SOB, labored breathing, cough, shallow respirations ABG/CBG: pH: (7.35), pCO2: (38), pHCO3: 20* Treatment: IV Lasix, Albuterol INH, IV MagSulfate, IV fluid bolus x2, vent In your professional opinion, can you please clarify if these findings signify one of the following conditions? Acuity: Acute Chronic Acute on Chronic Specificity: Respiratory Failure, further specify (if known): With hypercapnia? With hypoxia? Respiratory Distress Respiratory Insufficiency Other Diagnosis, please specify Unable to determine Please continue to document in your progress notes and discharge summary in order to capture severity of illness and risk of mortality. Include clinical findings that support your diagnosis. MTDD
[2017-11-16 13:14] LABS: Hemoglobin A1C 8.8 % (4.0-6.0)
[2017-11-16 13:27] LABS: Glucose,Whole Blood 250 mg/dL (75-99)
[2017-11-16 16:31] LABS: Iron Saturation 3.38 (15.00-50.00)
[2017-11-16 17:06] LABS: Glucose,Whole Blood 208 mg/dL (75-99)
[2017-11-16] MEDS: METOPROLOL TARTRATE 25 MG TAB PO SCH ×2 (17:31→20:06)
[2017-11-16 20:06] LABS: Glucose,Whole Blood 180 mg/dL (75-99)
--- NOTE | 2017-11-16 22:19 | P.PN ---
Subjective Progress Note Date: 11/16/17 Principal diagnosis: Rhabdomyolysis and acute respiratory failure Patient is a 72-year-old male with a known history of hypertension, diabetes type 2 [id number] came to the hospital with complaints of weakness in his both legs. As per the patient returned has been going on for the past few months which is getting worse for the past 2 weeks. Yesterday he fell on the ground due to he was unable to bear his weight. He fell twice yesterday and once today trying to go to the bathroom. He was on the ground apparently for about 4 hours until his son came in. Otherwise a lemons denied any complaints of chest pain or shortness of breath. No fever no chills. Patient has been having cough congestion and cold as well as a runny nose for the past 2 -3 months as per the patient. Patient denied any alcohol abuse. Patient says that he has been taking his diabetic medications regularly. Otherwise patient is a poor historian. No recent travel or sick contacts at home. Patient lives alone by himself. Chest x-ray showed mild vascular congestion CT head showed no acute intracranial process. Is related chronic small vessel ischemic changes noted. CPK level elevated greater than 2K Troponin slightly elevated. TSH within normal limits UA negative 11/16/2017 Patient became fluid overloaded last night and was transferred to MICU due to acute hypoxic respiratory failure. Currently patient is on mechanical ventilator. Patient is being continued on IV fluids. Cardiology and pulmonary is following. 2-D echo showed normal ejection fraction. BNP is 1050. Troponin is trending down. Heparin has been discontinued. CPK level is still elevated at 7814 Current medications reviewed. Objective - Vital Signs Vital signs: Vital Signs Temp 99.1 F 11/16/17 12:00 Pulse 96 11/16/17 14:30 Resp 27 H 11/16/17 14:30 BP 99/49 11/16/17 14:30 Pulse Ox 100 11/16/17 14:30 Intake & Output 11/15/17 11/16/17 11/16/17 18:59 06:59 18:59 Intake Total 1739.25 Output Total 1000 540 Balance -1000 1199.25 Weight 58.967 kg 60.6 kg 60.6 kg Intake: IV 1730 Sodium Chloride 0.9% 1, 200 000 ml @ 100 mls/hr IV . Q10H [facility] Rx#:[id number] Sodium Chloride 0.9% 1, 1530 000 ml @ 100 mls/hr IV . Q10H [facility] Rx#:[id number] Intake, IV Titration 9.25 Amount Propofol 1,000 mg In 9.25 Empty Bag 1 bag @ Titrate IV .Q0M [facility] Rx#: [id number] Output: Urine 1000 540 Other: Voiding Method Urinal Urinal Indwelling Catheter # Voids 1 - Exam PHYSICAL EXAMINATION: Patient is lying in the bed comfortably, no acute distress, currently on mechanical ventilator HEENT: Normocephalic. Neck is supple. Pupils reactive. Nostrils clear. Oral cavity is moist. Ears reveal no drainage. Neck reveals no JVD, carotid bruits, or thyromegaly. CHEST EXAMINATION: Trachea is central. Symmetrical expansion. Lung gregory clear to auscultation and percussion. CARDIAC: Normal S1, S2 with no gallops. No murmurs ABDOMEN: Soft. Bowel sounds normal. No organomegaly. No abdominal bruits. Extremities: reveal no edema. No clubbing or cyanosis Neurologically: patient is sedated and intubated. No focal deficits noted Skin: No rash or skin lesions. Psychiatric: Could not be assessed Musculoskeletal: No joint swelling or deformity. Normal range of motion. - Labs CBC & Chem 7: 11/16/17 04:51 11/16/17 04:51 Labs: Abnormal Lab Results - Last 24 Hours (Table) 11/15/17 11/15/17 11/15/17 Range/Units 18:00 23:54 23:54 WBC (3.8-10.6) k/uL Hgb (13.0-17.5) gm/dL Hct (39.0-53.0) % MCV (80.0-100.0) fL MCH (25.0-35.0) pg MCHC (31.0-37.0) g/dL RDW (11.5-15.5) % Plt Count (150-450) k/uL APTT 44.3 H (22.0-30.0) sec ABG pH (7.35-7.45) ABG pCO2 (35-45) mmHg ABG pO2 (83-108) mmHg ABG HCO3 (21-25) mmol/L ABG O2 Saturation (94-97) % BUN (9-20) mg/dL Glucose (74-99) mg/dL POC Glucose (mg/dL) (75-99) mg/dL Creatine Kinase (55-170) U/L Total Creatine Kinase 5786 H 6419 H (55-170) U/L CK-MB (CK-2) 20.1 H* 11.6 H* (0.0-2.4) ng/mL Troponin I 0.058 H* 0.057 H* (0.000-0.034) ng/mL Cholesterol (<200) mg/dL LDL Cholesterol, Calc (0-99) mg/dL HDL Cholesterol (40-60) mg/dL 11/16/17 11/16/17 11/16/17 Range/Units 01:20 04:51 04:51 WBC 10.8 H (3.8-10.6) k/uL Hgb 11.4 L (13.0-17.5) gm/dL Hct 38.0 L (39.0-53.0) % MCV 74.1 L (80.0-100.0) fL MCH 22.2 L (25.0-35.0) pg MCHC 29.9 L (31.0-37.0) g/dL RDW 18.5 H (11.5-15.5) % Plt Count 128 L (150-450) k/uL APTT 45.8 H (22.0-30.0) sec ABG pH (7.35-7.45) ABG pCO2 (35-45) mmHg ABG pO2 (83-108) mmHg ABG HCO3 (21-25) mmol/L ABG O2 Saturation (94-97) % BUN 22 H (9-20) mg/dL Glucose 217 H (74-99) mg/dL POC Glucose (mg/dL) (75-99) mg/dL Creatine Kinase 7814 H (55-170) U/L Total Creatine Kinase (55-170) U/L CK-MB (CK-2) (0.0-2.4) ng/mL Troponin I (0.000-0.034) ng/mL Cholesterol 228 H (<200) mg/dL LDL Cholesterol, Calc 123 H (0-99) mg/dL HDL Cholesterol 77 H (40-60) mg/dL 0111/16/17 11/16/17 Range/Units 04:51 05:40 05:45 WBC (3.8-10.6) k/uL Hgb (13.0-17.5) gm/dL Hct (39.0-53.0) % MCV (80.0-100.0) fL MCH (25.0-35.0) pg MCHC (31.0-37.0) g/dL RDW (11.5-15.5) % Plt Count (150-450) k/uL APTT 57.9 H (22.0-30.0) sec ABG pH 7.20 L* (7.35-7.45) ABG pCO2 61 H (35-45) mmHg ABG pO2 76 L (83-108) mmHg ABG HCO3 (21-25) mmol/L ABG O2 Saturation 91.0 L (94-97) % BUN (9-20) mg/dL Glucose (74-99) mg/dL POC Glucose (mg/dL) 315 H (75-99) mg/dL Creatine Kinase (55-170) U/L Total Creatine Kinase (55-170) U/L CK-MB (CK-2) (0.0-2.4) ng/mL Troponin I (0.000-0.034) ng/mL Cholesterol (<200) mg/dL LDL Cholesterol, Calc (0-99) mg/dL HDL Cholesterol (40-60) mg/dL 11/16/17 11/16/17 11/16/17 Range/Units 06:16 07:19 09:23 WBC (3.8-10.6) k/uL Hgb (13.0-17.5) gm/dL Hct (39.0-53.0) % MCV (80.0-100.0) fL MCH (25.0-35.0) pg MCHC (31.0-37.0) g/dL RDW (11.5-15.5) % Plt Count (150-450) k/uL APTT (22.0-30.0) sec ABG pH (7.35-7.45) ABG pCO2 (35-45) mmHg ABG pO2 206 H (83-108) mmHg ABG HCO3 20 L (21-25) mmol/L ABG O2 Saturation 99.7 H (94-97) % BUN (9-20) mg/dL Glucose (74-99) mg/dL POC Glucose (mg/dL) 251 H 242 H (75-99) mg/dL Creatine Kinase (55-170) U/L Total Creatine Kinase (55-170) U/L CK-MB (CK-2) (0.0-2.4) ng/mL Troponin I (0.000-0.034) ng/mL Cholesterol (<200) mg/dL LDL Cholesterol, Calc (0-99) mg/dL HDL Cholesterol (40-60) mg/dL 11/16/17 Range/Units 13:26 WBC (3.8-10.6) k/uL Hgb (13.0-17.5) gm/dL Hct (39.0-53.0) % MCV (80.0-100.0) fL MCH (25.0-35.0) pg MCHC (31.0-37.0) g/dL RDW (11.5-15.5) % Plt Count (150-450) k/uL APTT (22.0-30.0) sec ABG pH (7.35-7.45) ABG pCO2 (35-45) mmHg ABG pO2 (83-108) mmHg ABG HCO3 (21-25) mmol/L ABG O2 Saturation (94-97) % BUN (9-20) mg/dL Glucose (74-99) mg/dL POC Glucose (mg/dL) 250 H (75-99) mg/dL Creatine Kinase (55-170) U/L Total Creatine Kinase (55-170) U/L CK-MB (CK-2) (0.0-2.4) ng/mL Troponin I (0.000-0.034) ng/mL Cholesterol (<200) mg/dL LDL Cholesterol, Calc (0-99) mg/dL HDL Cholesterol (40-60) mg/dL Microbiology - Last 24 Hours (Table) 11/15/17 11:20 Blood Culture - Preliminary Blood No Growth after 24 hours Assessment and Plan Assessment: Acute hypoxic respiratory failure likely due to fluid overload Hypertensive urgency Status post fall due to bilateral lower admitted weakness. CT head negative for any acute CVA Severe rhabdomyolysis Elevated troponin level. Likely due to rhabdo and unlikely NSTEMI. DC'd heparin Hypertension uncontrolled Diabetes type 2 [id number]-wqfikybzw. Uncontrolled his B A1c 8.8 Microcytic anemia. Rule out iron deficiency Acute kidney injury. Likely prerenal. Possible ATN DVT prophylaxis. Plan: Patient will be continued on mechanical ventilator and also on IV fluids. Follow-up CPK level. 2-D echo showed normal ejection fraction. Cardiology and pulmonary is following. Further recommendations based on the clinical course. Prognosis is guarded with multiple medical problems and comorbid conditions. Discussed with his son at bedside in detail. Time with Patient: Greater than 30
[2017-11-16 23:43] LABS: Glucose,Whole Blood 155 mg/dL (75-99)
[2017-11-17 01:10] LABS: Glucose,Whole Blood 146 mg/dL (75-99)
[2017-11-17] MEDS: IPRATROPIUM-ALBUTEROL 3 ML NEB INHALATION SCH ×6 (03:11→23:23)
[2017-11-17 04:04] LABS: Glucose,Whole Blood 137 mg/dL (75-99)
[2017-11-17] MEDS: SODIUM CHLORIDE 0.9% 1,000 ML IV SCH ×3 (04:04→23:56)
[2017-11-17] MEDS: INSULIN ASPART 100 UNIT/ML 1 ML 10 ML VIAL SQ SCH ×6 (04:04→23:55)
[2017-11-17 05:14] LABS: Albumin 2.6 g/dL (3.5-5.0); Calcium 7.4 mg/dL (8.4-10.2); Magnesium 2.1 mg/dL (1.6-2.3); Phosphorus 4.2 mg/dL (2.5-4.5); Potassium 4.1 mmol/L (3.5-5.1); Total Bilirubin 0.2 mg/dL (0.2-1.3); Total Protein 4.9 g/dL (6.3-8.2)
[2017-11-17 05:16] LABS: Anisocytosis Slight; Basophils % (A) 0 %; Eosinophils % (A) 0 %; HCT 33.1 % (39.0-53.0); Hypochromasia Marked; Lymphocytes # (A) 0.8 k/uL (1.0-4.8); Lymphocytes % (A) 10 %; MCHC 28.9 g/dL (31.0-37.0); MCV 76.3 fL (80.0-100.0); Microcytosis Slight; Monocytes # (A) 0.2 k/uL (0-1.0); Monocytes % (A) 3 %; Neutrophils # (A) 6.6 k/uL (1.3-7.7); Neutrophils % (A) 87 %; RBC 4.33 m/uL (4.30-5.90); RDW 17.3 % (11.5-15.5); WBC 7.7 k/uL (3.8-10.6)
[2017-11-17 05:21] LABS: HGB 9.5 gm/dL (13.0-17.5)
[2017-11-17 05:42] LABS: Anisocytosis (M) Present; Ovalocytes Present; Platelet Count 84 k/uL (150-450)
[2017-11-17 06:09] LABS: ABG HCO3 22 mmol/L (21-25); ABG PCO2 39 mmHg (35-45); ABG PH 7.37 (7.35-7.45); ABG PO2 99 mmHg (83-108)
[2017-11-17] MEDS: PROPOFOL 1,000 MG in EMPTY BAG 1 BAG IV SCH ×3 (06:09→19:13)
[2017-11-17 06:10] LABS: ABG Base Excess -2.6 mmol/L; ABG TCO2 23 mmol/L (19-24)
[2017-11-17 07:52] LABS: Glucose,Whole Blood 119 mg/dL (75-99)
--- NOTE | 2017-11-17 08:28 | PN ---
PROGRESS NOTE Mr. Samuels is a 72-year-old male who presented to the emergency room and admitted because of an episode of unresponsiveness. He was found on the floor by his son. The duration was unclear. He had worsening breathing and with respiratory failure requiring mechanical ventilation. He thus remains intubated. He continued to be on metoprolol tartrate 25 mg twice a day, Lovenox subcu. He is in sinus mechanism and had episodes of sinus tachycardia. His blood pressure has been elevated. His blood pressure is 166/60 with the heart rate in 90s. LUNGS: With scattered wheezes anteriorly. HEART: Regular rate and rhythm, S1, S2. No S3. No rub. ABDOMEN: Soft. No organomegaly. Positive bowel sounds. EXTREMITIES: No edema. LAB DATA: Lab data revealed a hemoglobin of 9.5. His BUN and creatinine 31 and 1.8, which is worsened compared to yesterday. Potassium 4.1. His pH 7.37, pCO2 of 39, pO2 of 99. IMPRESSION: 1. Respiratory failure requiring mechanical ventilation. 2. Acute kidney injury. 3. History of hypertension. 4. Anemia. 5. History of diabetes. 6. Rhabdomyolysis. He had an echocardiogram that revealed an ejection fraction 50% to 55% with mild to moderate aortic and mild mitral and tricuspid regurgitation. RECOMMENDATION: I would recommend continuing on the present therapy. I will add to his regimen nitro paste for improvement in his blood pressure. Patient is receiving IV fluids. We will follow his renal function and depending on his progress, further recommendation will be made. VIOLET / ROSSYN: [id number] /
[2017-11-17] MEDS: PANTOPRAZOLE 40 MG/10 ML VIAL IVP SCH (08:57)
[2017-11-17] MEDS: NITROGLYCERIN OINT 1 INCH/GM PACKET TOPICAL SCH ×3 (08:57→23:56)
[2017-11-17] MEDS: METOPROLOL TARTRATE 25 MG TAB PO SCH ×2 (08:57→20:16)
[2017-11-17] MEDS ORDERED: ENOXAPARIN 40 MG/0.4 ML SYRINGE SQ SCH (09:00)
[2017-11-17] MEDS ORDERED: IPRATROPIUM-ALBUTEROL 3 ML NEB INHALATION PRN (09:12)
[2017-11-17] MEDS: ACETAMINOPHEN TAB 325 MG TAB PO PRN (10:14)
[2017-11-17] MEDS ORDERED: ACETAMINOPHEN TAB 325 MG TAB PO PRN (10:15)
--- NOTE | 2017-11-17 11:23 | XR ---
EXAMINATION TYPE: XR chest 1V portable DATE OF EXAM: 11/17/2017 COMPARISON: Prior chest x-ray 11/16/2017 HISTORY: Intubated TECHNIQUE: Single frontal view of the chest is obtained. FINDINGS: Endotracheal tube is overlying the tracheal air column. NG tube is in place, side-port of the NG tube is above the level of gastroesophageal junction. There is improvement in upper lobe aerat ion. No evident pneumothorax or pleural effusion. Heart size is likely stable accounting for differen nigel in technique and rotation. There are overlying cardiac leads. IMPRESSION: Improvement in aeration. NG tube as described with side-port above the level of the lucero roesophageal junction.
--- NOTE | 2017-11-17 11:37 | P.PN ---
Subjective Progress Note Date: 11/17/17 Principal diagnosis: Hypoxemia, acute respiratory failure, secondary to fluid overload, rhabdomyolysis, acute kidney failure. Consult dated 11/16/2017 72-year-old black male who presented to the hospital with complaints of weakness in his lower extremities. The patient apparently had multiple falls at home. The weakness apparently was worse over the last couple weeks. He presented with an episode of rhabdomyolysis and subsequently went on to develop renal fire with fluid overload. The patient apparently had progressive shortness of breath out on the floor and sometime early this morning went into chencho distress. He was placed on BiPAP therapy and percent oxygen by the hospitalist. Subsequent to that, he was moved to the ICU but because of progressive decline in his respiratory status, he required intubation and mechanical ventilation. I put him on the ventilator at the assist control mode , rate of 20 tidal volume 400 and FiO2 100% and PEEP of 5. The patient currently is down to 50% FiO2. The rest of the studies of the same. The patient's currently on diprovan or propofol at 40 mics per kilogram per minute. Also receiving a saline IV at 20 mL an hour. Her blood gases prior to intubation included a PaO2 of 76 a PaCO2 of 61 and a pH of 7.2. Post intubation , PaO2 was 206 PaCO2 was 38 and pH of 7.35. The second blood gas was consistent with hyperoxia and a mild metabolic acidosis. On 11/17/2017 patient seen in intensive care, remains sedated, and on mechanical ventilator. Vent settings assist control mode with a rate of 20, tidal volume 400, FiO2 of 60%, and PEEP of 5. Maintenance IV fluid is 0.9 normal saline in the 100 ML per hour, Propofol is infusing at 20 mics per kilo per minute. Today's chest x-ray shows improvement in aeration. Today's blood work was reviewed, blood gases were reviewed, pH is 7.37, pCO2 39, pO2 is 99, this was done on 40% FiO2. No evidence of leukocytosis, hemoglobin is 9.5, renal profile shows slight worsening with the BUN of 31, creatinine of 1.8. No acute electrolyte abnormalities. Microbiology has been reviewed, blood urine and sputum cultures are negative so far. Yesterday we gave the patient 40 of Lasix IV, and today's chest x-ray showed significant improvement in the appearance of bilateral upper lobe infiltrates. We will give the patient sedation holiday, and place him on PSV 5/CPAP 5 spontaneous breathing trial. Objective - Vital Signs Vital signs: Vital Signs Temp 100.4 F H 11/17/17 10:00 Pulse 103 H 11/17/17 11:18 Resp 27 H 11/17/17 10:00 BP 131/52 11/17/17 10:00 Pulse Ox 100 11/17/17 10:00 Intake & Output 11/16/17 11/17/17 11/17/17 18:59 06:59 18:59 Intake Total 2381.373 1750 433.262 Output Total 690 805 375 Balance 1691.373 945 58.262 Weight 58.9 kg Intake: IV 2130 1300 225 Sodium Chloride 0.9% 1, 600 1300 225 000 ml @ 100 mls/hr IV . Q10H [facility] Rx#:[id number] Sodium Chloride 0.9% 1, 1530 000 ml @ 100 mls/hr IV . Q10H [facility] Rx#:[id number] Intake, IV Titration 171.373 0 78.262 Amount Propofol 1,000 mg In 171.373 0 78.262 Empty Bag 1 bag @ Titrate IV .Q0M [facility] Rx#: [id number] Tube Feeding 80 300 100 Other 150 30 Output: Urine 690 805 375 Other: Voiding Method Indwelling Catheter Indwelling Catheter - Exam No acute distress. The patient is sedated. The patient is on the ventilator. There is an orally placed NG tube and endotracheal tube noted. HEENT examination is grossly unremarkable. Mucous membranes are moist. No oral lesions. Neck supple. Full range of motion. No adenopathy thyromegaly or neck vein distention. Cardiovascular examination reveals regular rhythm rate. S1-S2 normal. No S3 or S4. No discernible murmur noted. Lungs reveal some bilateral breath sounds. No wheezes. Breath sounds are equal bilaterally.. Abdomen soft bowel sounds are heard. No masses or tenderness. Extremities are intact. No cyanosis clubbing or edema. Skin is without rash or lesion. Neurologic examination cannot be performed. - Labs CBC & Chem 7: 11/17/17 04:37 11/17/17 04:37 Labs: Abnormal Lab Results - Last 24 Hours (Table) 11/16/17 11/16/17 11/16/17 Range/Units 04:51 04:51 13:26 Hgb (13.0-17.5) gm/dL Hct (39.0-53.0) % MCV (80.0-100.0) fL MCH (25.0-35.0) pg MCHC (31.0-37.0) g/dL RDW (11.5-15.5) % Plt Count (150-450) k/uL Lymphocytes # (1.0-4.8) k/uL ABG O2 Saturation (94-97) % Chloride (98-107) mmol/L BUN (9-20) mg/dL Creatinine (0.66-1.25) mg/dL Glucose (74-99) mg/dL POC Glucose (mg/dL) 250 H (75-99) mg/dL Hemoglobin A1c 8.8 H (4.0-6.0) % Calcium (8.4-10.2) mg/dL Iron 9 L (65-175) ug/dL Iron Saturation 3.38 L (15.00-50.00) AST (17-59) U/L Total Protein (6.3-8.2) g/dL Albumin (3.5-5.0) g/dL 11/16/17 11/16/17 11/16/17 Range/Units 17:04 20:04 23:42 Hgb (13.0-17.5) gm/dL Hct (39.0-53.0) % MCV (80.0-100.0) fL MCH (25.0-35.0) pg MCHC (31.0-37.0) g/dL RDW (11.5-15.5) % Plt Count (150-450) k/uL Lymphocytes # (1.0-4.8) k/uL ABG O2 Saturation (94-97) % Chloride (98-107) mmol/L BUN (9-20) mg/dL Creatinine (0.66-1.25) mg/dL Glucose (74-99) mg/dL POC Glucose (mg/dL) 208 H 180 H 155 H (75-99) mg/dL Hemoglobin A1c (4.0-6.0) % Calcium (8.4-10.2) mg/dL Iron (65-175) ug/dL Iron Saturation (15.00-50.00) AST (17-59) U/L Total Protein (6.3-8.2) g/dL Albumin (3.5-5.0) g/dL 11/17/17 11/17/17 11/17/17 Range/Units 01:08 04:02 04:37 Hgb 9.5 L D (13.0-17.5) gm/dL Hct 33.1 L (39.0-53.0) % MCV 76.3 L (80.0-100.0) fL MCH 22.0 L (25.0-35.0) pg MCHC 28.9 L (31.0-37.0) g/dL RDW 17.3 H (11.5-15.5) % Plt Count 84 L (150-450) k/uL Lymphocytes # 0.8 L (1.0-4.8) k/uL ABG O2 Saturation (94-97) % Chloride (98-107) mmol/L BUN (9-20) mg/dL Creatinine (0.66-1.25) mg/dL Glucose (74-99) mg/dL POC Glucose (mg/dL) 146 H 137 H (75-99) mg/dL Hemoglobin A1c (4.0-6.0) % Calcium (8.4-10.2) mg/dL Iron (65-175) ug/dL Iron Saturation (15.00-50.00) AST (17-59) U/L Total Protein (6.3-8.2) g/dL Albumin (3.5-5.0) g/dL 11/17/17 11/17/17 11/17/17 Range/Units 04:37 05:23 07:50 Hgb (13.0-17.5) gm/dL Hct (39.0-53.0) % MCV (80.0-100.0) fL MCH (25.0-35.0) pg MCHC (31.0-37.0) g/dL RDW (11.5-15.5) % Plt Count (150-450) k/uL Lymphocytes # (1.0-4.8) k/uL ABG O2 Saturation 98.0 H (94-97) % Chloride 108 H (98-107) mmol/L BUN 31 H (9-20) mg/dL Creatinine 1.80 H (0.66-1.25) mg/dL Glucose 149 H (74-99) mg/dL POC Glucose (mg/dL) 119 H (75-99) mg/dL Hemoglobin A1c (4.0-6.0) % Calcium 7.4 L (8.4-10.2) mg/dL Iron (65-175) ug/dL Iron Saturation (15.00-50.00) AST 133 H (17-59) U/L Total Protein 4.9 L (6.3-8.2) g/dL Albumin 2.6 L (3.5-5.0) g/dL Microbiology - Last 24 Hours (Table) 11/16/17 08:52 Blood Culture - Preliminary Blood No Growth after 24 hours 11/16/17 08:42 Blood Culture - Preliminary Blood No Growth after 24 hours 11/16/17 17:18 Gram Stain - Preliminary Sputum Sputum Culture - Preliminary 11/16/17 08:00 Urine Culture - Preliminary Urine,Catheterized 11/15/17 11:20 Blood Culture - Preliminary Blood No Growth after 24 hours Assessment and Plan Plan: Assessment: 1. Acute hypoxic respiratory failure secondary to fluid overload, evidence of bilateral upper lobe infiltrates which has improved significantly with administration of IV diuretics on today's exam compared to 1 on 11/16/2017 #2. Acute kidney injury, related to acute tubular necrosis #3. Rhabdomyolysis #4. Elevated troponin, likely due to rhabdomyolysis and possible non-ST elevated OR #5. Diabetes type 2 #6. Hypertension #7. Microcytic anemia Plan: Yesterday we gave a dose of IV Lasix, today's chest x-ray shows improvement in the aeration and improvement in the appearance of the bilateral upper lobe infiltrates seen on chest x-ray from 11/16/2017. Today's blood gas, lab work were reviewed, patient will be given a sedation holiday, we will place him on PSV 5/CPAP 5 on spontaneous breathing trial. Back the IV fluids O.9 normal saline at 50 ML per hour. Continue all other present medical treatments. I performed a history & physical examination of the patient and discussed their management with my nurse practitioner, Crystal Villagomez. I reviewed the nurse practitioner's note and agree with the documented findings and plan of care. Lung sounds are diminished. The findings and the impression was discussed with the patient. I attest to the documentation by the nurse practitioner. Time with Patient: Greater than 30
[2017-11-17] MEDS ORDERED: IBUPROFEN ORAL SUSP 100 MG/5 ML CUP PO PRN (11:52)
[2017-11-17] MEDS ORDERED: VANCOMYCIN 1,000 MG in SODIUM CHLORIDE 0.9% 250 ML IVPB STA (12:50)
[2017-11-17] MEDS: CHLORHEXIDINE GLUCONATE 15 ML CUP MUCOUS MEM SCH ×2 (12:59→20:16)
[2017-11-17 13:05] LABS: Glucose,Whole Blood 220 mg/dL (75-99)
[2017-11-17 13:05] LABS: Glucose,Whole Blood 192 mg/dL (75-99)
[2017-11-17] MEDS: PIPERACILLIN-TAZOBACTAM 3.375 GM in DEXTROSE/WATER 1 50ML.BAG IVPB SCH ×2 (14:12→21:26)
[2017-11-17] MEDS: METOPROLOL TARTRATE 5 MG/5 ML VIAL IVP PRN (14:31)
[2017-11-17] MEDS ORDERED: CISATRACURIUM 2 MG/ML 5 ML VIAL IV ONE (15:06)
[2017-11-17] MEDS ORDERED: LABETALOL 5 MG/ML VIAL MDV IVP STA (15:26)
--- NOTE | 2017-11-17 15:42 | XR ---
EXAMINATION TYPE: XR chest 1V portable DATE OF EXAM: 11/17/2017 COMPARISON: Prior chest x-ray 11/17/2017 earlier time HISTORY: Status post central venous catheter placement TECHNIQUE: Single frontal view of the chest is obtained. FINDINGS: Endotracheal tube is overlying appropriate position. NG tube remains in place with the bj e port cephalad to the level of the gastroesophageal junction. There are overlying cardiac leads. Th ere is been interval placement of a left jugular central venous catheter, distal tip is overlying the level of the cavoatrial junction. No evident pneumothorax or pleural effusion. IMPRESSION: No evident complication status post central venous catheter placement, NG tube is descri bed
--- NOTE | 2017-11-17 16:52 | PCN ---
PROCEDURE NOTE ARTERIAL LINE PLACEMENT: PREOPERATIVE DIAGNOSIS: Frequent blood draws and blood gas monitoring. POSTOPERATIVE DIAGNOSIS: Frequent blood draws and blood gas monitoring. A time-out was completed verifying correct patient, procedure, site, positioning, and implant(s) or special equipment if applicable. Wilber's test was performed to ensure adequate perfusion. The patient's right wrist was prepped and draped in sterile fashion. 1% Lidocaine was used to anesthetize the area. An 18G Arrow arterial line was introduced into the radial artery. The catheter was threaded over the guide wire and the needle was removed with appropriate pulsatile blood return. Blood loss was minimal. The catheter was then sutured in place to the skin and a sterile dressing applied by the nurse. Perfusion to the extremity distal to the point of catheter insertion was checked and found to be adequate. The patient tolerated the procedure well and there were no complications. There was good waveform and blood pressure reading. MMODL / IJN: [id number] /
--- NOTE | 2017-11-17 16:55 | PCN ---
PROCEDURE NOTE TRIPLE LUMEN CATHETER PLACEMENT: PREOPERATIVE DIAGNOSIS: Administration of fluids and pressors. POSTOPERATIVE DIAGNOSIS: Administration of fluids and pressors. A time-out was completed verifying correct patient, procedure, site, positioning, and implant(s) or special equipment if applicable. The patient was placed in a dependent position appropriate for triple lumen catheter placement based on the vein to be cannulated. The patient's left neck was prepped and draped in sterile fashion. 1% Lidocaine was used to anesthetize the surrounding skin area. A triple lumen 9F Cordis catheter was introduced into the left internal jugular vein using Seldinger technique. The catheter was threaded smoothly over the guidewire and appropriate blood return was obtained. Each lumen of the catheter was evacuated of air and flushed with sterile saline. The catheter was then sutured in place to the skin and a sterile dressing applied by the nurse. Perfusion to the extremity distal to the point of catheter insertion was checked and found to be adequate. There was no immediate complication. There was good blood return from all 3 ports of the triple- lumen catheter. A chest x-ray was ordered to rule out pneumothorax and check placement. MMODL / IJN: [id number] /
[2017-11-17] MEDS: CLEVIDIPINE BUTYRATE 25 MG in EMPTY BAG 1 BAG IV SCH ×4 (17:22→23:57)
[2017-11-17 18:28] LABS: Glucose,Whole Blood 166 mg/dL (75-99)
[2017-11-17 20:15] LABS: Glucose,Whole Blood 198 mg/dL (75-99)
[2017-11-17] MEDS: HYDROmorphone 2 MG/ML 1 ML SYRINGE IVP PRN (20:33)
[2017-11-17] MEDS ORDERED: SODIUM CHLORIDE 0.9% 1,000 ML IV ONE (22:40)
--- NOTE | 2017-11-17 23:49 | P.PN ---
Subjective Progress Note Date: 11/17/17 Principal diagnosis: Rhabdomyolysis and acute respiratory failure Patient is a 72-year-old male with a known history of hypertension, diabetes type 2 [id number] came to the hospital with complaints of weakness in his both legs. As per the patient returned has been going on for the past few months which is getting worse for the past 2 weeks. Yesterday he fell on the ground due to he was unable to bear his weight. He fell twice yesterday and once today trying to go to the bathroom. He was on the ground apparently for about 4 hours until his son came in. Otherwise a lemons denied any complaints of chest pain or shortness of breath. No fever no chills. Patient has been having cough congestion and cold as well as a runny nose for the past 2 -3 months as per the patient. Patient denied any alcohol abuse. Patient says that he has been taking his diabetic medications regularly. Otherwise patient is a poor historian. No recent travel or sick contacts at home. Patient lives alone by himself. Chest x-ray showed mild vascular congestion CT head showed no acute intracranial process. Is related chronic small vessel ischemic changes noted. CPK level elevated greater than 2K Troponin slightly elevated. TSH within normal limits UA negative 11/16/2017 Patient became fluid overloaded last night and was transferred to MICU due to acute hypoxic respiratory failure. Currently patient is on mechanical ventilator. Patient is being continued on IV fluids. Cardiology and pulmonary is following. 2-D echo showed normal ejection fraction. BNP is 1050. Troponin is trending down. Heparin has been discontinued. CPK level is still elevated at 7814 11/17/2017 Patient remained on mechanical ventilator. Otherwise chest x-ray showed improved aeration. CPK level is still elevated. Continued on IV fluids. Patient developed fever t today afternoon. Patient was given a dose of vancomycin. No other significant electrolyte abnormalities noted. Discussed with family at bedside. Pulmonary is planning to wean off from the ventilator. Current medications reviewed. Objective - Vital Signs Vital signs: Vital Signs Temp 100.4 F H 11/17/17 10:00 Pulse 105 H 11/17/17 11:35 Resp 27 H 11/17/17 10:00 BP 131/52 11/17/17 10:00 Pulse Ox 100 11/17/17 10:00 Intake & Output 11/16/17 11/17/17 11/17/17 18:59 06:59 18:59 Intake Total 2381.373 1750 433.262 Output Total 690 805 375 Balance 1691.373 945 58.262 Weight 58.9 kg Intake: IV 2130 1300 225 Sodium Chloride 0.9% 1, 600 1300 225 000 ml @ 100 mls/hr IV . Q10H [facility] Rx#:[id number] Sodium Chloride 0.9% 1, 1530 000 ml @ 100 mls/hr IV . Q10H [facility] Rx#:[id number] Intake, IV Titration 171.373 0 78.262 Amount Propofol 1,000 mg In 171.373 0 78.262 Empty Bag 1 bag @ Titrate IV .Q0M [facility] Rx#: [id number] Tube Feeding 80 300 100 Other 150 30 Output: Urine 690 805 375 Other: Voiding Method Indwelling Catheter Indwelling Catheter - Exam PHYSICAL EXAMINATION: Patient is lying in the bed comfortably, no acute distress, currently on mechanical ventilator HEENT: Normocephalic. Neck is supple. Pupils reactive. Nostrils clear. Oral cavity is moist. Ears reveal no drainage. Neck reveals no JVD, carotid bruits, or thyromegaly. CHEST EXAMINATION: Trachea is central. Symmetrical expansion. Lung gregory clear to auscultation and percussion. CARDIAC: Normal S1, S2 with no gallops. No murmurs ABDOMEN: Soft. Bowel sounds normal. No organomegaly. No abdominal bruits. Extremities: reveal no edema. No clubbing or cyanosis Neurologically: patient is sedated and intubated. No focal deficits noted Skin: No rash or skin lesions. Psychiatric: Could not be assessed Musculoskeletal: No joint swelling or deformity. Normal range of motion. - Labs CBC & Chem 7: 11/17/17 04:37 11/17/17 04:37 Labs: Abnormal Lab Results - Last 24 Hours (Table) 11/16/17 11/16/17 11/16/17 Range/Units 04:51 04:51 13:26 Hgb (13.0-17.5) gm/dL Hct (39.0-53.0) % MCV (80.0-100.0) fL MCH (25.0-35.0) pg MCHC (31.0-37.0) g/dL RDW (11.5-15.5) % Plt Count (150-450) k/uL Lymphocytes # (1.0-4.8) k/uL ABG O2 Saturation (94-97) % Chloride (98-107) mmol/L BUN (9-20) mg/dL Creatinine (0.66-1.25) mg/dL Glucose (74-99) mg/dL POC Glucose (mg/dL) 250 H (75-99) mg/dL Hemoglobin A1c 8.8 H (4.0-6.0) % Calcium (8.4-10.2) mg/dL Iron 9 L (65-175) ug/dL Iron Saturation 3.38 L (15.00-50.00) AST (17-59) U/L Total Protein (6.3-8.2) g/dL Albumin (3.5-5.0) g/dL 11/16/17 11/16/17 11/16/17 Range/Units 17:04 20:04 23:42 Hgb (13.0-17.5) gm/dL Hct (39.0-53.0) % MCV (80.0-100.0) fL MCH (25.0-35.0) pg MCHC (31.0-37.0) g/dL RDW (11.5-15.5) % Plt Count (150-450) k/uL Lymphocytes # (1.0-4.8) k/uL ABG O2 Saturation (94-97) % Chloride (98-107) mmol/L BUN (9-20) mg/dL Creatinine (0.66-1.25) mg/dL Glucose (74-99) mg/dL POC Glucose (mg/dL) 208 H 180 H 155 H (75-99) mg/dL Hemoglobin A1c (4.0-6.0) % Calcium (8.4-10.2) mg/dL Iron (65-175) ug/dL Iron Saturation (15.00-50.00) AST (17-59) U/L Total Protein (6.3-8.2) g/dL Albumin (3.5-5.0) g/dL 11/17/17 11/17/17 11/17/17 Range/Units 01:08 04:02 04:37 Hgb 9.5 L D (13.0-17.5) gm/dL Hct 33.1 L (39.0-53.0) % MCV 76.3 L (80.0-100.0) fL MCH 22.0 L (25.0-35.0) pg MCHC 28.9 L (31.0-37.0) g/dL RDW 17.3 H (11.5-15.5) % Plt Count 84 L (150-450) k/uL Lymphocytes # 0.8 L (1.0-4.8) k/uL ABG O2 Saturation (94-97) % Chloride (98-107) mmol/L BUN (9-20) mg/dL Creatinine (0.66-1.25) mg/dL Glucose (74-99) mg/dL POC Glucose (mg/dL) 146 H 137 H (75-99) mg/dL Hemoglobin A1c (4.0-6.0) % Calcium (8.4-10.2) mg/dL Iron (65-175) ug/dL Iron Saturation (15.00-50.00) AST (17-59) U/L Total Protein (6.3-8.2) g/dL Albumin (3.5-5.0) g/dL 11/17/17 11/17/17 11/17/17 Range/Units 04:37 05:23 07:50 Hgb (13.0-17.5) gm/dL Hct (39.0-53.0) % MCV (80.0-100.0) fL MCH (25.0-35.0) pg MCHC (31.0-37.0) g/dL RDW (11.5-15.5) % Plt Count (150-450) k/uL Lymphocytes # (1.0-4.8) k/uL ABG O2 Saturation 98.0 H (94-97) % Chloride 108 H (98-107) mmol/L BUN 31 H (9-20) mg/dL Creatinine 1.80 H (0.66-1.25) mg/dL Glucose 149 H (74-99) mg/dL POC Glucose (mg/dL) 119 H (75-99) mg/dL Hemoglobin A1c (4.0-6.0) % Calcium 7.4 L (8.4-10.2) mg/dL Iron (65-175) ug/dL Iron Saturation (15.00-50.00) AST 133 H (17-59) U/L Total Protein 4.9 L (6.3-8.2) g/dL Albumin 2.6 L (3.5-5.0) g/dL Microbiology - Last 24 Hours (Table) 11/16/17 08:52 Blood Culture - Preliminary Blood No Growth after 24 hours 11/16/17 08:42 Blood Culture - Preliminary Blood No Growth after 24 hours 11/16/17 17:18 Gram Stain - Preliminary Sputum Sputum Culture - Preliminary 11/16/17 08:00 Urine Culture - Preliminary Urine,Catheterized 11/15/17 11:20 Blood Culture - Preliminary Blood No Growth after 24 hours Assessment and Plan Assessment: Acute hypoxic respiratory failure likely due to fluid overload Hypertensive urgency Status post fall due to bilateral lower admitted weakness. CT head negative for any acute CVA Severe rhabdomyolysis Elevated troponin level. Likely due to rhabdo and unlikely NSTEMI. DC'd heparin Hypertension uncontrolled Diabetes type 2 [id number]. Uncontrolled his B A1c 8.8 Microcytic anemia. Rule out iron deficiency Acute kidney injury. Likely prerenal. Possible ATN DVT prophylaxis. Plan: Patient will be continued on mechanical ventilator and also on IV fluids. Follow-up CPK level. 2-D echo showed normal ejection fraction. Cardiology and pulmonary is following. Further recommendations based on the clinical course. Prognosis is guarded with multiple medical problems and comorbid conditions. Discussed with his daughter and son at bedside in detail. Time with Patient: Greater than 30
[2017-11-17 23:54] LABS: Glucose,Whole Blood 191 mg/dL (75-99)
[2017-11-18] MEDS: PROPOFOL 1,000 MG in EMPTY BAG 1 BAG IV SCH ×5 (01:30→22:02)
[2017-11-18] MEDS: CLEVIDIPINE BUTYRATE 25 MG in EMPTY BAG 1 BAG IV SCH ×10 (02:30→22:02)
[2017-11-18] MEDS: IPRATROPIUM-ALBUTEROL 3 ML NEB INHALATION SCH ×6 (03:05→23:21)
[2017-11-18] MEDS: HYDROmorphone 2 MG/ML 1 ML SYRINGE IVP PRN ×5 (03:27→14:19)
[2017-11-18 03:34] LABS: Glucose,Whole Blood 270 mg/dL (75-99)
[2017-11-18] MEDS: INSULIN ASPART 100 UNIT/ML 1 ML 10 ML VIAL SQ SCH ×5 (03:36→22:04)
[2017-11-18 05:06] LABS: Anisocytosis Slight; Basophils % (A) 0 %; Eosinophils % (A) 0 %; HCT 27.8 % (39.0-53.0); HGB 8.7 gm/dL (13.0-17.5); Hypochromasia Marked; Lymphocytes # (A) 0.8 k/uL (1.0-4.8); Lymphocytes % (A) 11 %; MCH 23.9 pg (25.0-35.0); MCHC 31.3 g/dL (31.0-37.0); MCV 76.2 fL (80.0-100.0); Mean Platelet Volume 6.5; Microcytosis Slight; Monocytes # (A) 0.1 k/uL (0-1.0); Monocytes % (A) 2 %; Neutrophils # (A) 6.3 k/uL (1.3-7.7); Neutrophils % (A) 85 %; RBC 3.64 m/uL (4.30-5.90); RDW 17.5 % (11.5-15.5); WBC 7.4 k/uL (3.8-10.6)
[2017-11-18] MEDS: PIPERACILLIN-TAZOBACTAM 3.375 GM in DEXTROSE/WATER 1 50ML.BAG IVPB SCH ×3 (05:13→22:05)
[2017-11-18 05:17] LABS: Platelet Count 77 k/uL (150-450)
[2017-11-18 05:23] LABS: Calcium 7.2 mg/dL (8.4-10.2)
[2017-11-18 05:27] LABS: ABG Base Excess -4.7 mmol/L; ABG HCO3 20 mmol/L (21-25); ABG PCO2 39 mmHg (35-45); ABG PH 7.34 (7.35-7.45); ABG PO2 91 mmHg (83-108); ABG TCO2 21 mmol/L (19-24)
[2017-11-18 05:32] LABS: Potassium 4.4 mmol/L (3.5-5.1)
[2017-11-18 05:33] LABS: Phosphorus 3.8 mg/dL (2.5-4.5)
[2017-11-18 07:59] LABS: Glucose,Whole Blood 188 mg/dL (75-99)
[2017-11-18] MEDS: PANTOPRAZOLE 40 MG/10 ML VIAL IVP SCH (08:16)
[2017-11-18] MEDS: METOPROLOL TARTRATE 25 MG TAB PO SCH ×2 (08:16→22:05)
[2017-11-18] MEDS: CHLORHEXIDINE GLUCONATE 15 ML CUP MUCOUS MEM SCH ×2 (08:17→22:05)
[2017-11-18] MEDS: NITROGLYCERIN OINT 1 INCH/GM PACKET TOPICAL SCH ×2 (08:37→17:00)
--- NOTE | 2017-11-18 09:43 | PN ---
PROGRESS NOTE Mr. Samuels is a 72-year-old male who presented with a fall and was found to be on the floor. He was found to have an elevated CK enzymes. He had respiratory failure, requiring mechanical ventilation. He remains intubated and sedated. He had episode of hypertension. He has continued to be in sinus mechanism. There is no active tachycardia at this point. He was febrile yesterday. His echocardiogram that was obtained recently showed ejection fraction of 50% to 55% with mild to moderate aortic and mild mitral regurgitation. Tricuspid regurgitation with no evidence of pulmonary hypertension. His urine output has been relatively stable. He continues to be on metoprolol 25 mg through the NG tube, nitro paste 1 inch q.8 hours, clevidipine infusion. In addition to the antibiotics. PHYSICAL EXAMINATION: Blood pressure running in the 130s to 150s, with a heart in the 80s. LUNGS: Clear anteriorly. No wheezes or rales appreciated. HEART: Regular rate and rhythm, S1, S2. No S3. No rub. ABDOMEN: Soft. Positive bowel sounds. No organomegaly. EXTREMITIES: No edema. LAB DATA: Revealed hemoglobin of 8.7. BUN and creatinine 36 and 1.8. White blood cell of 7.4. His temperature was elevated yesterday up to 102.7. He is down to 98.3 at this point. IMPRESSION: 1. Respiratory failure with febrile episode. Workup in progress. 2. Worsening renal failure, could be related to the rhabdomyolysis. 3. Hypertension. 4. History of diabetes. 5. Anemia. RECOMMENDATION: From the cardiac standpoint, will continue supportive care. I do not see any evidence for active cardiac issue at this point. He will continue on the intravenous treatment for his blood pressure and depending on his progress, further recommendation will be made. MMODL / IJN: [id number] /
--- NOTE | 2017-11-18 09:51 | XR ---
EXAMINATION TYPE: XR chest 1V portable DATE OF EXAM: 11/18/2017 COMPARISON: 11/17/2017 HISTORY: Shortness of breath TECHNIQUE: Single frontal view of the chest is obtained. FINDINGS: ET tube, NG tube and central line stable. Patchy bilateral areas of predominantly upper lo be infiltrate are stable. No pleural effusion or pneumothorax. IMPRESSION: 1. Patchy perihilar and upper lobe areas of infiltrate. Differential include atypical pneumonia or at ypical interstitial congestion. Correlate clinically. Allergic alveolitis a consideration.
--- NOTE | 2017-11-18 10:12 | P.PN ---
Subjective Progress Note Date: 11/18/17 Principal diagnosis: Hypoxemia, acute respiratory failure, secondary to fluid overload, rhabdomyolysis, acute kidney failure. Consult dated 11/16/2017 72-year-old black male who presented to the hospital with complaints of weakness in his lower extremities. The patient apparently had multiple falls at home. The weakness apparently was worse over the last couple weeks. He presented with an episode of rhabdomyolysis and subsequently went on to develop renal fire with fluid overload. The patient apparently had progressive shortness of breath out on the floor and sometime early this morning went into chencho distress. He was placed on BiPAP therapy and percent oxygen by the hospitalist. Subsequent to that, he was moved to the ICU but because of progressive decline in his respiratory status, he required intubation and mechanical ventilation. I put him on the ventilator at the assist control mode , rate of 20 tidal volume 400 and FiO2 100% and PEEP of 5. The patient currently is down to 50% FiO2. The rest of the studies of the same. The patient's currently on diprovan or propofol at 40 mics per kilogram per minute. Also receiving a saline IV at 20 mL an hour. Her blood gases prior to intubation included a PaO2 of 76 a PaCO2 of 61 and a pH of 7.2. Post intubation , PaO2 was 206 PaCO2 was 38 and pH of 7.35. The second blood gas was consistent with hyperoxia and a mild metabolic acidosis. On 11/17/2017 patient seen in intensive care, remains sedated, and on mechanical ventilator. Vent settings assist control mode with a rate of 20, tidal volume 400, FiO2 of 60%, and PEEP of 5. Maintenance IV fluid is 0.9 normal saline in the 100 ML per hour, Propofol is infusing at 20 mics per kilo per minute. Today's chest x-ray shows improvement in aeration. Today's blood work was reviewed, blood gases were reviewed, pH is 7.37, pCO2 39, pO2 is 99, this was done on 40% FiO2. No evidence of leukocytosis, hemoglobin is 9.5, renal profile shows slight worsening with the BUN of 31, creatinine of 1.8. No acute electrolyte abnormalities. Microbiology has been reviewed, blood urine and sputum cultures are negative so far. Yesterday we gave the patient 40 of Lasix IV, and today's chest x-ray showed significant improvement in the appearance of bilateral upper lobe infiltrates. We will give the patient sedation holiday, and place him on PSV 5/CPAP 5 spontaneous breathing trial. On 11/18/2017 patient seen in follow-up in intensive care. Remains sedated and mechanically ventilated. Sedation holiday is in progress, Diprivan has been on hold for 30 minutes, patient is becoming more tachypneic, slightly more tachycardic, but not following commands, still remains lethargic. Vent settings before meals mode with a rate of 20, tidal volume 400, FiO2 40% and PEEP of 5. Blood gas shows pH of 7.34, pCO2 39, pO2 is 91, and FiO2 of 40%. 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 Yesterday on 11/17/2017 patient had a fever spike, with a temp of 102.7 F. Patient was pancultured again, and placed on a combination of Zosyn and one- time dose vancomycin. Sputum blood and urine cultures remain negative. This morning his temp is 97.8F. Patient remains somewhat hypertensive, with systolic ranging between 150-170's, less than cardiology had placed the patient Clevidipine drip, which is currently running at 12 mg per hour, propofol is on hold, maintenance fluids 0.9 at 50. Patient did receive a bolus of 0.9 normal saline last night for low urine output. This morning his urine output has improved, it is anywhere between 30 and 50 ML per hour. Patient is an 2940 mL positive fluid balance over the last 24 hours. Lab Work was reviewed, WBC within normal limits of 7.4, hemoglobin is 8.7, platelets are down to 77, Lovenox will be discontinued, serum sodium is 139, potassium is 4.4, renal profile is relatively stable, B1 is 36, creatinine is 1.8. Patient placed on PSV 5 and CPAP of 5 spontaneous breathing trial, and extremely tachypneic and tachycardic, mentation very obtunded, nonpurposeful, patient was placed back on assist control mode of ventilation. Not ready for spontaneous breathing trial at this time. We will give 20 of IV Lasix today. He has been adequately fluid resuscitated. Objective - Vital Signs Vital signs: Vital Signs Temp 98.3 F 11/18/17 06:00 Pulse 88 11/18/17 09:07 Resp 22 11/18/17 07:00 BP 114/86 11/18/17 07:00 Pulse Ox 96 11/18/17 07:00 Intake & Output 11/17/17 11/18/17 11/18/17 18:59 06:59 18:59 Intake Total 2644.427 3165.908 242.234 Output Total 1170 470 30 Balance 569.590 0907.908 212.234 Weight 65.9 kg Intake: IV 634 1688.0 68.5 Piperacillin-Tazobactam 3 75.0 12.5 .375 gm In Dextrose/Water 1 50ml.bag @ 12.5 mls/hr IVPB Q8H [facility] Rx#: [id number] Pressure Bag 9 63 6 Sodium Chloride 0.9% 1, 625 550 50 000 ml @ 50 mls/hr IV . Q20H [facility] Rx#:[id number] Sodium Chloride 0.9% 1, 1000 000 ml @ 999 mls/hr IV . Q1H1M [facility] Rx#:[id number] Intake, IV Titration 438.645 423.908 122.734 Amount Clevidipine Butyrate 25 190.633 68.134 mg In Empty Bag 1 bag @ 1 MG/HR 2 mls/hr IV .Q24H [facility] Rx#:[id number] Piperacillin-Tazobactam 3 50 .375 gm In Dextrose/Water 1 50ml.bag @ 12.5 mls/hr IVPB Q8H [facility] Rx#: [id number] Propofol 1,000 mg In 138.645 233.275 54.6 Empty Bag 1 bag @ Titrate IV .Q0M [facility] Rx#: [id number] Vancomycin 1,000 mg In 250 Sodium Chloride 0.9% 250 ml @ 125 mls/hr IVPB ONCE [facility] Rx#:[id number] Tube Feeding 431 765 51 Other 110 90 Output: Urine 1170 470 30 Other: Voiding Method Indwelling Catheter Indwelling Catheter ABP, PAP, CO, CI - Last Documented Arterial Blood Pressure 158/44 - Exam No acute distress. The patient is currently on sedation holiday, remains obtunded, nonpurposeful. The patient is on the ventilator. There is an orally placed NG tube and endotracheal tube noted. HEENT examination is grossly unremarkable. Mucous membranes are moist. No oral lesions. Neck supple. Full range of motion. No adenopathy thyromegaly or neck vein distention. Cardiovascular examination reveals regular rhythm rate. S1-S2 normal. No S3 or S4. No discernible murmur noted. Lungs reveal bilateral breath sounds. No wheezes. Breath sounds are equal bilaterally.. Abdomen soft bowel sounds are heard. No masses or tenderness. Extremities are intact. No cyanosis clubbing or edema. Skin is without rash or lesion. Neurologic examination cannot be performed. - Labs CBC & Chem 7: 11/18/17 04:50 11/18/17 04:50 Labs: Abnormal Lab Results - Last 24 Hours (Table) 11/17/17 11/17/17 11/17/17 Range/Units 04:37 13:00 13:03 RBC (4.30-5.90) m/uL Hgb (13.0-17.5) gm/dL Hct (39.0-53.0) % MCV (80.0-100.0) fL MCH (25.0-35.0) pg RDW (11.5-15.5) % Plt Count (150-450) k/uL Lymphocytes # (1.0-4.8) k/uL ABG pH (7.35-7.45) ABG HCO3 (21-25) mmol/L Chloride (98-107) mmol/L BUN (9-20) mg/dL Creatinine (0.66-1.25) mg/dL Glucose (74-99) mg/dL POC Glucose (mg/dL) 192 H 220 H (75-99) mg/dL Calcium (8.4-10.2) mg/dL Creatine Kinase 20454 H (55-170) U/L CK-MB (CK-2) (0.0-2.4) ng/mL 11/17/17 11/17/17 11/17/17 Range/Units 14:35 18:25 20:13 RBC (4.30-5.90) m/uL Hgb (13.0-17.5) gm/dL Hct (39.0-53.0) % MCV (80.0-100.0) fL MCH (25.0-35.0) pg RDW (11.5-15.5) % Plt Count (150-450) k/uL Lymphocytes # (1.0-4.8) k/uL ABG pH (7.35-7.45) ABG HCO3 (21-25) mmol/L Chloride (98-107) mmol/L BUN (9-20) mg/dL Creatinine (0.66-1.25) mg/dL Glucose (74-99) mg/dL POC Glucose (mg/dL) 166 H 198 H (75-99) mg/dL Calcium (8.4-10.2) mg/dL Creatine Kinase (55-170) U/L CK-MB (CK-2) 4.0 H* (0.0-2.4) ng/mL 11/17/17 11/18/17 11/18/17 Range/Units 23:53 03:32 04:50 RBC 3.64 L (4.30-5.90) m/uL Hgb 8.7 L (13.0-17.5) gm/dL Hct 27.8 L (39.0-53.0) % MCV 76.2 L (80.0-100.0) fL MCH 23.9 L (25.0-35.0) pg RDW 17.5 H (11.5-15.5) % Plt Count 77 L (150-450) k/uL Lymphocytes # 0.8 L (1.0-4.8) k/uL ABG pH (7.35-7.45) ABG HCO3 (21-25) mmol/L Chloride (98-107) mmol/L BUN (9-20) mg/dL Creatinine (0.66-1.25) mg/dL Glucose (74-99) mg/dL POC Glucose (mg/dL) 191 H 270 H (75-99) mg/dL Calcium (8.4-10.2) mg/dL Creatine Kinase (55-170) U/L CK-MB (CK-2) (0.0-2.4) ng/mL 11/18/17 11/18/17 11/18/17 Range/Units 04:50 05:20 07:57 RBC (4.30-5.90) m/uL Hgb (13.0-17.5) gm/dL Hct (39.0-53.0) % MCV (80.0-100.0) fL MCH (25.0-35.0) pg RDW (11.5-15.5) % Plt Count (150-450) k/uL Lymphocytes # (1.0-4.8) k/uL ABG pH 7.34 L (7.35-7.45) ABG HCO3 20 L (21-25) mmol/L Chloride 110 H (98-107) mmol/L BUN 36 H (9-20) mg/dL Creatinine 1.80 H (0.66-1.25) mg/dL Glucose 207 H (74-99) mg/dL POC Glucose (mg/dL) 188 H (75-99) mg/dL Calcium 7.2 L (8.4-10.2) mg/dL Creatine Kinase (55-170) U/L CK-MB (CK-2) (0.0-2.4) ng/mL Microbiology - Last 24 Hours (Table) 11/16/17 08:00 Urine Culture - Final Urine,Catheterized 11/15/17 11:20 Blood Culture - Preliminary Blood No Growth after 48 hours 11/16/17 08:52 Blood Culture - Preliminary Blood No Growth after 24 hours 11/16/17 08:42 Blood Culture - Preliminary Blood No Growth after 24 hours 11/16/17 17:18 Gram Stain - Preliminary Sputum Sputum Culture - Preliminary Assessment and Plan Plan: Assessment: 1. Acute hypoxic respiratory failure secondary to fluid overload, evidence of bilateral upper lobe infiltrates which has improved significantly with administration of IV diuretics on today's exam compared to 1 on 11/16/2017 On 11/18/2017 patient is an 2900 positive fluid balance, last night he was given a liter of 0.9 normal saline IV bolus for low urine output. His chest x- ray shows persistence of bilateral upper lobe Opacities, and output is ranging between 30-50 ML per hour, will give a small dose of 20 mg of IV Lasix #2. Encephalopathy, likely metabolic. Initial brain CT on 11/15/2017 showed age-related atrophic and chronic small vessel ischemic changes without any acute intracranial process #3. Acute kidney injury, related to acute tubular necrosis #4 Rhabdomyolysis #5. Elevated troponin, likely due to rhabdomyolysis and possible non-ST elevated GA #6. Diabetes type 2 #7. Hypertension #8. Microcytic anemia #9. EtOH abuse, per family, the time of last drink is unknown #10. Thrombocytopenia, could be related to chronic alcohol abuse, Lovenox, or underlying sepsis. We'll stop the Lovenox for now Plan: Sedation holiday was done, patient remains very uptight on that, nonpurposeful, has failed a spontaneous breathing trial today, became very tachypneic and tachycardic. Urine output is somewhat marginal, ranging between 30-50 ML per hour, CXR still shows persistence of bilateral upper lobe opacities, patient has been adequately fluid resuscitated, will give a small dose of IV Lasix 20 mg IV push 1. Stop the Lovenox for now. DVT prophylaxis with the SCDs. Continue Zosyn, yesterday we gave 1 dose of vancomycin. Microbiology results have been reviewed, and remain negative so far. No new episodes of fever. Will await the results of the final cultures. Agent will remain on assist- control mode of ventilation, continue daily interruption of sedation. I performed a history & physical examination of the patient and discussed their management with my nurse practitioner, Crystal Villagomez. I reviewed the nurse practitioner's note and agree with the documented findings and plan of care. Lung sounds are diminished. The findings and the impression was discussed with the patient. I attest to the documentation by the nurse practitioner. Time with Patient: Greater than 30
[2017-11-18] MEDS: METOPROLOL TARTRATE 5 MG/5 ML VIAL IVP PRN (10:44)
[2017-11-18] MEDS ORDERED: FUROSEMIDE 10 MG/ML 2 ML VIAL IV ONE (11:00)
[2017-11-18 11:30] LABS: Glucose,Whole Blood 113 mg/dL (75-99)
--- NOTE | 2017-11-18 15:14 | CT ---
EXAMINATION TYPE: CT brain wo con DATE OF EXAM: 11/18/2017 COMPARISON: 11/15/2017 HISTORY: decreased mental status CT DLP: [address] of the brain was performed. New area of decreased attenuation within the left cerebellar hemisphere inferiorly compatible with CV A PICA distribution. No evidence for hemorrhagic transformation. The ventricles, basal cisterns and sulci overlying the cerebral convexities demonstrate mild enlargem ent. There is no evidence for intracranial hemorrhage . There is decreased attenuation about the periventricular white matter and deep white matter of both c erebral hemispheres, compatible with chronic small vessel ischemia. Differential diagnosis does inclu de demyelination. No mass effects are seen.No midline shift. Osseous calvarium is intact. If symptoms persist consider MRI. IMPRESSION: 1. New area of decreased attenuation within the left cerebellar hemisphere inferiorly compatible with CVA PICA distribution. No evidence for hemorrhagic transformation.
[2017-11-18] MEDS ORDERED: ASPIRIN 300 MG SUPP RECTAL STA (16:15)
[2017-11-18 17:09] LABS: Glucose,Whole Blood 175 mg/dL (75-99)
--- NOTE | 2017-11-18 17:23 | EEG ---
ELECTROENCEPHALOGRAM REPORT DATE OF SERVICE: 11/18/2017 REASON FOR TESTING: Altered mental status and stroke. DESCRIPTION OF THE PROCEDURE: This EEG was performed using a 21-channel digital electroencephalograph, following international 10-20 system. DESCRIPTION OF THE RECORDING: From the beginning of the tracing, and with the patient's eyes closed, the background rhythm was mostly consisting of 5 to 6 Hz theta frequency in the posterior occipital leads. No obvious asymmetry is seen. Photic stimulation was performed with no driving response seen. No pathological waves were elicited. Lead artifacts are seen. Hyperventilation was not performed. No obvious epileptiform discharges were seen. INTERPRETATION: This EEG is abnormal due to the presence of generalized slowing of the background rhythm, mostly in the theta range. This is consistent with moderate encephalopathy. No epileptiform discharges were seen. The absence of epileptiform discharges does not rule out the diagnosis of epilepsy; therefore clinical correlation is recommended. MMJJ / HOOD: [id number] /
[2017-11-18 20:02] LABS: Glucose,Whole Blood 232 mg/dL (75-99)
--- NOTE | 2017-11-18 20:38 | CONS ---
CONSULTATION DATE OF CONSULTATION: 11/18/2017 CHIEF COMPLAINT: Altered mental status. HISTORY OF PRESENT ILLNESS: The patient is a 72-year-old -Mex[place] male who is being evaluated by the neurology service per the request of Dr. Valentine for altered mental status. The patient was brought into [facility] on 11/15/2017 with lower extremity weakness. The patient had been falling at home, and with one of the falls, he was unable to get up. According to the nursing staff, he was down for several hours. He was found to have acute rhabdomyolysis with a CPK around 10,000. He did have renal insufficiency as well. The patient had respiratory difficulties and had to be intubated. He was admitted to the intensive care unit and Pulmonology is following the patient. He was found to have fluid overload. and was given Lasix, with an improved chest x-ray afterwards. The intensive care unit team tried to wean him off of the ventilator, but this has been unsuccessful, as the patient had become quite restless and his blood pressure was significantly increasing. He remains on sedation and intubation at this time. An initial CT scan of the brain was done on arrival which was negative for any acute intracranial abnormalities. A repeat CT scan of the brain was done today which showed evidence of hypoattenuation involving the left cerebellum. His CBC today showed anemia with a hemoglobin of 8.7 and hematocrit at 27%. He also had thrombocytopenia at 77,000. His BUN and creatinine today are 36 and 1.8, respectively. His ammonia level was normal at 20. His last CPK was done yesterday, which was 10,107. At the time of my evaluation, he remains intubated and sedated. I did review his EEG, which showed evidence of moderate encephalopathy with no epileptiform discharges seen. PAST MEDICAL HISTORY: Diabetes, hypertension. SOCIAL HISTORY: The patient is a current everyday smoker. FAMILY HISTORY: Unknown. HOME MEDICATIONS: Reviewed in the chart. ALLERGIES: NO KNOWN DRUG ALLERGIES. REVIEW OF SYSTEMS: Unable to obtain, as the patient is sedated and intubated. PHYSICAL EXAMINATION: Vital signs show a temperature of 98.7, pulse 106, respiration 12, blood pressure 156/60. GENERAL APPEARANCE: The patient is a well-developed -Mexican male who is intubated and sedated. HEENT: Normocephalic atraumatic. No obvious facial asymmetry is seen. Pupils are pinpoint and slightly reactive. Endotracheal tube is intact. NECK: Supple with no masses felt. CARDIOVASCULAR: Regular rate and rhythm. ABDOMEN: Nondistended. Extremities showed no edema or clubbing. NEUROLOGICAL EXAM: The patient is sedated. He does not respond to any verbal or painful stimuli. No seizure-like activity is seen. Plantar reflex showed Babinski on the left. No clonus is seen. No obvious facial asymmetry is seen on cranial nerve testing. Brainstem reflexes are intact. IMPRESSION: 1. Acute ischemic stroke, left PICA distribution. 2. Unsteady gait. 3. Acute rhabdomyolysis. 4. Renal insufficiency. 5. Hypertension. 6. Diabetes. RECOMMENDATION: The patient does appear to have suffered an acute ischemic stroke involving the left cerebellum. This appears to be the cause for his gait instability prior to arrival and may have caused the patient to suffer the fall initially. I did start him on aspirin 300 mg rectally. The patient's blood pressure has been significantly elevating whenever weaning off the ventilator is attempted. His EEG did show evidence of moderate encephalopathy and he may be having hypertensive encephalopathy. Of concern, there may be an extension of the stroke into the brainstem, but this is quite difficult to see on a CT scan of the brain. If the patient's status improves and he tolerates weaning off of the ventilator, an MRI of the brain will be needed. As for his rhabdomyolysis, continue IV hydration as tolerated. Continue monitoring his BUN and creatinine. I will repeat a CPK today and will order CPKs daily. I had a lengthy discussion with the patient's daughter and son regarding his current status. Prognosis is guarded. Continue neuro checks. I will continue to follow with you. Further recommendations to follow. Thank you for allowing me to participate in the care of your patient. If you have any questions, please feel free to contact me. MMODL / IJN: [id number] /
[2017-11-18 22:01] LABS: Glucose,Whole Blood 231 mg/dL (75-99)
[2017-11-19 00:03] LABS: Glucose,Whole Blood 188 mg/dL (75-99)
[2017-11-19] MEDS: INSULIN ASPART 100 UNIT/ML 1 ML 10 ML VIAL SQ SCH ×7 (01:05→23:47)
[2017-11-19] MEDS: NITROGLYCERIN OINT 1 INCH/GM PACKET TOPICAL SCH ×4 (01:05→23:00)
[2017-11-19] MEDS: CLEVIDIPINE BUTYRATE 25 MG in EMPTY BAG 1 BAG IV SCH ×8 (03:01→23:50)
[2017-11-19] MEDS: SODIUM CHLORIDE 0.9% 1,000 ML IV SCH ×2 (03:01→21:40)
[2017-11-19] MEDS: HYDROmorphone 2 MG/ML 1 ML SYRINGE IVP PRN ×8 (03:05→23:10)
[2017-11-19] MEDS: IPRATROPIUM-ALBUTEROL 3 ML NEB INHALATION SCH ×6 (03:34→23:04)
[2017-11-19] MEDS: PROPOFOL 1,000 MG in EMPTY BAG 1 BAG IV SCH ×2 (03:59→23:52)
[2017-11-19 04:05] LABS: Glucose,Whole Blood 155 mg/dL (75-99)
[2017-11-19 04:47] LABS: Anisocytosis Slight; HCT 26.3 % (39.0-53.0); HGB 8.7 gm/dL (13.0-17.5); Hypochromasia Marked; MCH 25.1 pg (25.0-35.0); Microcytosis Slight; RBC 3.46 m/uL (4.30-5.90); RDW 17.5 % (11.5-15.5); WBC 7.9 k/uL (3.8-10.6)
[2017-11-19 04:56] LABS: Albumin 2.3 g/dL (3.5-5.0); Calcium 7.2 mg/dL (8.4-10.2); Magnesium 1.8 mg/dL (1.6-2.3); Phosphorus 3.9 mg/dL (2.5-4.5); Total Bilirubin 0.3 mg/dL (0.2-1.3); Total Protein 4.8 g/dL (6.3-8.2)
[2017-11-19 05:03] LABS: Platelet Count 91 k/uL (150-450)
[2017-11-19] MEDS: PIPERACILLIN-TAZOBACTAM 3.375 GM in DEXTROSE/WATER 1 50ML.BAG IVPB SCH ×3 (05:08→21:42)
[2017-11-19 05:13] LABS: ABG PCO2 38 mmHg (35-45); ABG PH 7.36 (7.35-7.45); ABG PO2 89 mmHg (83-108)
[2017-11-19 05:14] LABS: ABG Base Excess -3.5 mmol/L; ABG HCO3 21 mmol/L (21-25); ABG TCO2 22 mmol/L (19-24)
[2017-11-19 05:19] LABS: Band Neutrophils % 14 %; Basophils # (M) 0.08 k/uL (0-0.2); Lymphocytes # (M) 0.47 k/uL (1.0-4.8); Monocytes # (M) 0.24 k/uL (0-1.0); Neutrophils % (M) 77 %; Nucleated Red Blood Cells 0 /100 WBC (0-0); Total Cells Counted 200
[2017-11-19] MEDS ORDERED: Magnesium Replacement Protocol 1 EACH MISC MISCELLANE PRN (07:20)
[2017-11-19 07:38] LABS: Glucose,Whole Blood 115 mg/dL (75-99)
[2017-11-19] MEDS: MAGNESIUM SULFATE-D5W PMX 1 GM in DEXTROSE/WATER 1 100ML.BAG IVPB SCH ×2 (07:45→10:18)
[2017-11-19] MEDS: ASPIRIN 300 MG SUPP RECTAL SCH (08:07)
[2017-11-19] MEDS: CHLORHEXIDINE GLUCONATE 15 ML CUP MUCOUS MEM SCH ×2 (08:07→20:24)
[2017-11-19] MEDS: METOPROLOL TARTRATE 25 MG TAB PO SCH (08:07)
[2017-11-19] MEDS: PANTOPRAZOLE 40 MG/10 ML VIAL IVP SCH (08:07)
[2017-11-19] MEDS: METOPROLOL TARTRATE 5 MG/5 ML VIAL IVP PRN ×2 (09:16→18:09)
--- NOTE | 2017-11-19 09:21 | XR ---
EXAMINATION TYPE: XR chest 1V portable DATE OF EXAM: 11/19/2017 COMPARISON: 11/18/2017 HISTORY: Tube placed TECHNIQUE: Single frontal view of the chest is obtained. FINDINGS: ET tube, NG tube and central line stable. Patchy bilateral areas of predominantly upper lo be infiltrate are stable. No pleural effusion or pneumothorax. IMPRESSION: 1. Patchy perihilar and upper lobe areas of infiltrate. Differential include atypical pneumonia or at ypical interstitial congestion. Correlate clinically. Allergic alveolitis a consideration.
[2017-11-19 11:23] LABS: Glucose,Whole Blood 203 mg/dL (75-99)
--- NOTE | 2017-11-19 11:33 | PN ---
PROGRESS NOTE Mr. Samuels is a 72-year-old male who presented with recurrent fall and finding of weakness, had respiratory failure requiring mechanical ventilation. He remains intubated. He underwent a CT scan that revealed a decreased attenuation of the left cerebral hemisphere consistent with a cerebrovascular accident. He continues to be hypertensive requiring intravenous treatment. There is no evidence of ventricular tachyarrhythmia. Urine output is stable. He continued be on metoprolol 50 mg twice a day, clevidipine intravenously, nitro paste 1 inch q.8 hours. PHYSICAL EXAMINATION: His blood pressure is running in the 150s and 160s with the heart rate in the 90s. LUNGS: Clear anteriorly. HEART: Regular rate and rhythm. S1, S2. No S3. No rub. ABDOMEN: Soft. Positive bowel sounds. No organomegaly. EXTREMITIES: No edema. LAB DATA: Lab data revealed a hemoglobin of 8.7. BUN and creatinine 43 and 2.5. His CK is 13,467. IMPRESSION: 1. Cerebellum infarct. 2. Hypertension. 3. Diabetes. 4. Acute renal failure. 5. Rhabdomyolysis. RECOMMENDATION: I will increase the dose of his beta nathaniel to optimize his blood pressure control. Unfortunately the prognosis is guarded. From the cardiac standpoint, depending on his blood pressure, further adjustment can be made. MMODL / IJN: [id number] /
[2017-11-19 11:38] VITALS: BMI 23.8
--- NOTE | 2017-11-19 11:45 | P.PN ---
Subjective Progress Note Date: 11/19/17 Principal diagnosis: Acute hypoxic respiratory failure secondary to fluid volume overload, rhabdomyolysis, acute kidney failure. Consult dated 11/16/2017 72-year-old black male who presented to the hospital with complaints of weakness in his lower extremities. The patient apparently had multiple falls at home. The weakness apparently was worse over the last couple weeks. He presented with an episode of rhabdomyolysis and subsequently went on to develop renal fire with fluid overload. The patient apparently had progressive shortness of breath out on the floor and sometime early this morning went into chencho distress. He was placed on BiPAP therapy and percent oxygen by the hospitalist. Subsequent to that, he was moved to the ICU but because of progressive decline in his respiratory status, he required intubation and mechanical ventilation. I put him on the ventilator at the assist control mode , rate of 20 tidal volume 400 and FiO2 100% and PEEP of 5. The patient currently is down to 50% FiO2. The rest of the studies of the same. The patient's currently on diprovan or propofol at 40 mics per kilogram per minute. Also receiving a saline IV at 20 mL an hour. Her blood gases prior to intubation included a PaO2 of 76 a PaCO2 of 61 and a pH of 7.2. Post intubation , PaO2 was 206 PaCO2 was 38 and pH of 7.35. The second blood gas was consistent with hyperoxia and a mild metabolic acidosis. On 11/17/2017 patient seen in intensive care, remains sedated, and on mechanical ventilator. Vent settings assist control mode with a rate of 20, tidal volume 400, FiO2 of 60%, and PEEP of 5. Maintenance IV fluid is 0.9 normal saline in the 100 ML per hour, Propofol is infusing at 20 mics per kilo per minute. Today's chest x-ray shows improvement in aeration. Today's blood work was reviewed, blood gases were reviewed, pH is 7.37, pCO2 39, pO2 is 99, this was done on 40% FiO2. No evidence of leukocytosis, hemoglobin is 9.5, renal profile shows slight worsening with the BUN of 31, creatinine of 1.8. No acute electrolyte abnormalities. Microbiology has been reviewed, blood urine and sputum cultures are negative so far. Yesterday we gave the patient 40 of Lasix IV, and today's chest x-ray showed significant improvement in the appearance of bilateral upper lobe infiltrates. We will give the patient sedation holiday, and place him on PSV 5/CPAP 5 spontaneous breathing trial. On 11/18/2017 patient seen in follow-up in intensive care. Remains sedated and mechanically ventilated. Sedation holiday is in progress, Diprivan has been on hold for 30 minutes, patient is becoming more tachypneic, slightly more tachycardic, but not following commands, still remains lethargic. Vent settings before meals mode with a rate of 20, tidal volume 400, FiO2 40% and PEEP of 5. Blood gas shows pH of 7.34, pCO2 39, pO2 is 91, and FiO2 of 40%. Today's chest x-ray shows geriatric assistant airspace opacities of bilateral upper lungs. Yesterday on 11/17/2017 patient had a fever spike, with a temp of 102.7 F. Patient was pancultured again, and placed on a combination of Zosyn and one- time dose vancomycin. Sputum blood and urine cultures remain negative. This morning his temp is 97.8F. Patient remains somewhat hypertensive, with systolic ranging between 150-170's, less than cardiology had placed the patient Clevidipine drip, which is currently running at 12 mg per hour, propofol is on hold, maintenance fluids 0.9 at 50. Patient did receive a bolus of 0.9 normal saline last night for low urine output. This morning his urine output has improved, it is anywhere between 30 and 50 ML per hour. Patient is an 2940 mL positive fluid balance over the last 24 hours. Lab Work was reviewed, WBC within normal limits of 7.4, hemoglobin is 8.7, platelets are down to 77, Lovenox will be discontinued, serum sodium is 139, potassium is 4.4, renal profile is relatively stable, B1 is 36, creatinine is 1.8. Patient placed on PSV 5 and CPAP of 5 spontaneous breathing trial, and extremely tachypneic and tachycardic, mentation very obtunded, nonpurposeful, patient was placed back on assist control mode of ventilation. Not ready for spontaneous breathing trial at this time. We will give 20 of IV Lasix today. He has been adequately fluid resuscitated. The patient is seen again today 11/19/2017 in follow-up in the intensive care unit. He remains intubated and sedated on the mechanical ventilator. Current settings are assist control of 20, tidal volume 400, FiO2 50%, PEEP of 5. Morning blood gases reveal a P O2 of 89, pCO2 38, pH 7.36. Current drips include Cleviprex at 15 mg per hour, propofol currently off, 0.9 normal saline at 50 mL per hour. He is being nourished with Vital HP 20 mL per hour which is his goal. His sputum culture is now positive for Streptococcus pneumoniae. He remains on Zosyn. Chest x-ray reveals patchy perihilar and upper lobe infiltrates. White count 7.9, hemoglobin 8.7, platelet count 91,000. Creatinine 2.50. Creatinine kinase 13,467. Follow-up computed tomography scan of the brain now reveals a new area of decreased attenuation within the left cerebellar hemisphere inferiorly compatible with CVA P ICA distribution. EEG does reveal background rhythm slowing consistent with encephalopathy. White count 7.9, hemoglobin 8.7, platelet count 91,000, BUN 43, creatinine 2.50, creatinine kinase 13,467. Objective - Vital Signs Vital signs: Vital Signs Temp 98.4 F 11/19/17 08:00 Pulse 100 11/19/17 11:27 Resp 20 11/19/17 11:00 BP 156/59 11/19/17 11:00 Pulse Ox 92 L 11/19/17 11:00 Intake & Output 11/18/17 11/19/17 11/19/17 18:59 06:59 18:59 Intake Total 8754.880 1954.691 800.566 Output Total 921 915 370 Balance 480.627 292.691 430.566 Weight 67 kg Intake: IV 718.5 641.5 537.0 Magnesium Sulfate-D5w Pmx 200 1 gm In Dextrose/Water 1 100ml.bag @ 100 mls/hr IVPB Q1H [facility] Rx#: [id number] Piperacillin-Tazobactam 3 12.5 37.5 75.0 .375 gm In Dextrose/Water 1 50ml.bag @ 12.5 mls/hr IVPB Q8H [facility] Rx#: [id number] Pressure Bag 106 54 12 Sodium Chloride 0.9% 1, 600 550 250 000 ml @ 50 mls/hr IV . Q20H [facility] Rx#:[id number] Intake, IV Titration 490.127 196.191 83.566 Amount Clevidipine Butyrate 25 312.567 93.733 21.666 mg In Empty Bag 1 bag @ 1 MG/HR 2 mls/hr IV .Q24H [facility] Rx#:[id number] Propofol 1,000 mg In 177.560 102.458 61.900 Empty Bag 1 bag @ Titrate IV .Q0M [facility] Rx#: [id number] Tube Feeding 193 260 180 Other 110 Output: Urine 921 915 370 Other: Voiding Method Indwelling Catheter Indwelling Catheter Indwelling Catheter ABP, PAP, CO, CI - Last Documented Arterial Blood Pressure 144/54 - Exam No acute distress. The patient is currently on sedation holiday, remains obtunded, nonpurposeful. The patient is on the ventilator. There is an orally placed NG tube and endotracheal tube noted. HEENT examination is grossly unremarkable. Mucous membranes are moist. No oral lesions. Neck supple. Full range of motion. No adenopathy thyromegaly or neck vein distention. Cardiovascular examination reveals regular rhythm rate. S1-S2 normal. No S3 or S4. No discernible murmur noted. Lungs reveal bilateral breath sounds. No wheezes. Breath sounds are equal bilaterally.. Abdomen soft bowel sounds are heard. No masses or tenderness. Extremities are intact. No cyanosis clubbing or edema. Skin is without rash or lesion. Neurologic examination cannot be performed. - Labs CBC & Chem 7: 11/19/17 04:38 11/19/17 04:38 Labs: Abnormal Lab Results - Last 24 Hours (Table) 11/18/17 11/18/17 11/18/17 Range/Units 16:56 18:30 20:00 RBC (4.30-5.90) m/uL Hgb (13.0-17.5) gm/dL Hct (39.0-53.0) % MCV (80.0-100.0) fL RDW (11.5-15.5) % Plt Count (150-450) k/uL Lymphocytes # (Manual) (1.0-4.8) k/uL Chloride (98-107) mmol/L BUN (9-20) mg/dL Creatinine (0.66-1.25) mg/dL Glucose (74-99) mg/dL POC Glucose (mg/dL) 175 H 232 H (75-99) mg/dL Calcium (8.4-10.2) mg/dL AST (17-59) U/L Creatine Kinase 73945 H (55-170) U/L Total Protein (6.3-8.2) g/dL Albumin (3.5-5.0) g/dL 11/18/17 11/19/17 11/19/17 Range/Units 21:58 00:00 04:03 RBC (4.30-5.90) m/uL Hgb (13.0-17.5) gm/dL Hct (39.0-53.0) % MCV (80.0-100.0) fL RDW (11.5-15.5) % Plt Count (150-450) k/uL Lymphocytes # (Manual) (1.0-4.8) k/uL Chloride (98-107) mmol/L BUN (9-20) mg/dL Creatinine (0.66-1.25) mg/dL Glucose (74-99) mg/dL POC Glucose (mg/dL) 231 H 188 H 155 H (75-99) mg/dL Calcium (8.4-10.2) mg/dL AST (17-59) U/L Creatine Kinase (55-170) U/L Total Protein (6.3-8.2) g/dL Albumin (3.5-5.0) g/dL 11/19/17 11/19/17 11/19/17 Range/Units 04:38 04:38 07:36 RBC 3.46 L (4.30-5.90) m/uL Hgb 8.7 L (13.0-17.5) gm/dL Hct 26.3 L (39.0-53.0) % MCV 76.0 L (80.0-100.0) fL RDW 17.5 H (11.5-15.5) % Plt Count 91 L (150-450) k/uL Lymphocytes # (Manual) 0.47 L (1.0-4.8) k/uL Chloride 110 H (98-107) mmol/L BUN 43 H (9-20) mg/dL Creatinine 2.50 H (0.66-1.25) mg/dL Glucose 121 H (74-99) mg/dL POC Glucose (mg/dL) 115 H (75-99) mg/dL Calcium 7.2 L (8.4-10.2) mg/dL AST 192 H (17-59) U/L Creatine Kinase 90252 H (55-170) U/L Total Protein 4.8 L (6.3-8.2) g/dL Albumin 2.3 L (3.5-5.0) g/dL 11/19/17 Range/Units 11:21 RBC (4.30-5.90) m/uL Hgb (13.0-17.5) gm/dL Hct (39.0-53.0) % MCV (80.0-100.0) fL RDW (11.5-15.5) % Plt Count (150-450) k/uL Lymphocytes # (Manual) (1.0-4.8) k/uL Chloride (98-107) mmol/L BUN (9-20) mg/dL Creatinine (0.66-1.25) mg/dL Glucose (74-99) mg/dL POC Glucose (mg/dL) 203 H (75-99) mg/dL Calcium (8.4-10.2) mg/dL AST (17-59) U/L Creatine Kinase (55-170) U/L Total Protein (6.3-8.2) g/dL Albumin (3.5-5.0) g/dL Microbiology - Last 24 Hours (Table) 11/16/17 08:52 Blood Culture - Preliminary Blood No Growth after 72 hours 11/16/17 08:42 Blood Culture - Preliminary Blood No Growth after 72 hours 11/16/17 17:18 Gram Stain - Preliminary Sputum Sputum Culture - Preliminary Streptococcus pneumoniae 11/15/17 11:20 Blood Culture - Preliminary Blood No Growth after 72 hours Assessment and Plan Assessment: Assessment: #1. Acute hypoxic respiratory failure secondary to fluid overload, evidence of bilateral upper lobe infiltrates. He is now positive for Streptococcus pneumoniae. Remains on Zosyn. #2. Encephalopathy, likely metabolic. Initial brain CT on 11/15/2017 showed age-related atrophic and chronic small vessel ischemic changes without any acute intracranial process, however, Computed tomography scan on 11/18/2017 reveals a new area of decreased attenuation within the left cerebellar hemisphere inferiorly compatible with CVA. PICA distribution. No evidence of hemorrhagic transformation. #3. Acute kidney injury, related to acute tubular necrosis #4 Rhabdomyolysis #5. Elevated troponin, likely due to rhabdomyolysis and possible non-ST elevated TN #6. Diabetes type 2 #7. Hypertension #8. Microcytic anemia #9. EtOH abuse, per family, the time of last drink is unknown #10. Thrombocytopenia, could be related to chronic alcohol abuse, Lovenox, or underlying sepsis. We'll stop the Lovenox for now Plan: The patient was seen and evaluated by Dr. Mae. His chest x-ray, ABGs and labs were all reviewed. Computed tomography scan of the brain and EEG were noted. Neurology is following. We'll continue with his current treatment for now. He remains off sedation and remains unresponsive. The patient's family has stated they would not proceed with tracheostomy and/or PEG tube placement at this point. In the interim, we'll continue full supportive care. We will continue to follow and make further recommendations based on his clinical status. Critical care time 42 minutes. I, the cosigning physician, performed a history & physical examination of the patient. Lungs sounds bilateral scattered rhonchi.. Maintaining good O2 saturations in the 90s on 2% FiO2. I discussed the assessment and plan of care with my nurse practitioner, Mana Das. I attest to the above note as dictated by her.
--- NOTE | 2017-11-19 15:37 | P.PN ---
Subjective Progress Note Date: 11/19/17 Patient is a 72-year-old -[place] male who is being followed by the neurology service for altered mental status. Patient was having frequent falls at home. Patient had a fall where he was unable to get up and he was brought to [facility]. Reportedly, he was down for several hours. Patient presented to the hospital with CPK around 10,000. Along with acute rhabdomyolysis he did have renal insufficiency as well. Patient was intubated and placed on mechanical ventilation for increased respiratory difficulty. Patient is sedated and remains on mechanical ventilation at this time. Initial computed tomography scan of the brain was done which was negative for any acute intracranial abnormalities. A repeat computed tomography scan of the brain was done following which showed hypoattenuation involving the left cerebellum. Patient had an EEG done which showed moderate encephalopathy with no epileptiform discharges seen.at the time of my evaluation, patient remains in the intensive care setting intubated on mechanical ventilation and sedated. Objective - Vital Signs Vital signs: Vital Signs Temp 99.9 F H 11/19/17 12:00 Pulse 99 11/19/17 14:00 Resp 20 11/19/17 14:00 BP 159/58 11/19/17 14:00 Pulse Ox 92 L 11/19/17 14:00 Intake & Output 11/18/17 11/19/17 11/19/17 18:59 06:59 18:59 Intake Total 8015.856 5169.691 1090.566 Output Total 921 915 520 Balance 480.627 292.691 570.566 Weight 67 kg 67 kg Intake: IV 718.5 641.5 687.0 Magnesium Sulfate-D5w Pmx 200 1 gm In Dextrose/Water 1 100ml.bag @ 100 mls/hr IVPB Q1H [facility] Rx#: [id number] Piperacillin-Tazobactam 3 12.5 37.5 75.0 .375 gm In Dextrose/Water 1 50ml.bag @ 12.5 mls/hr IVPB Q8H [facility] Rx#: [id number] Pressure Bag 106 54 12 Sodium Chloride 0.9% 1, 600 550 400 000 ml @ 50 mls/hr IV . Q20H [facility] Rx#:[id number] Intake, IV Titration 490.127 196.191 133.566 Amount Clevidipine Butyrate 25 312.567 93.733 71.666 mg In Empty Bag 1 bag @ 1 MG/HR 2 mls/hr IV .Q24H [facility] Rx#:[id number] Propofol 1,000 mg In 177.560 102.458 61.900 Empty Bag 1 bag @ Titrate IV .Q0M [facility] Rx#: [id number] Tube Feeding 193 260 270 Other 110 Output: Urine 921 915 520 Other: Voiding Method Indwelling Catheter Indwelling Catheter Indwelling Catheter ABP, PAP, CO, CI - Last Documented Arterial Blood Pressure 177/59 - Exam PHYSICAL EXAM: GENERAL APPEARANCE: Patient is a 72-year-old -[place] male who appears to be in no acute distress HEENT: Normocephalic, atraumatic, no obviousfacial asymmetry is seen. Neck is supple with no masses felt. CARDIOVASCULAR: Regular rate and rhythm. ABDOMEN: Nontender, nondistended. EXTREMITIES: Show no edema or clubbing. NEUROLOGICAL EXAM:a meaningful neurological exam could not be performed due to patient being sedated and intubated on mechanical ventilator. He does not respond to any verbal or painful stimuli. No clonus is seen. No obvious facial asymmetry is noted. No seizure-like activity is seen or reported. Pupils are minimally reactive and equal. Patient has cough and gag reflex intact. - Labs CBC & Chem 7: 11/19/17 04:38 11/19/17 04:38 Labs: Abnormal Lab Results - Last 24 Hours (Table) 11/18/17 11/18/17 11/18/17 Range/Units 16:56 18:30 20:00 RBC (4.30-5.90) m/uL Hgb (13.0-17.5) gm/dL Hct (39.0-53.0) % MCV (80.0-100.0) fL RDW (11.5-15.5) % Plt Count (150-450) k/uL Lymphocytes # (Manual) (1.0-4.8) k/uL Chloride (98-107) mmol/L BUN (9-20) mg/dL Creatinine (0.66-1.25) mg/dL Glucose (74-99) mg/dL POC Glucose (mg/dL) 175 H 232 H (75-99) mg/dL Calcium (8.4-10.2) mg/dL AST (17-59) U/L Creatine Kinase 04639 H (55-170) U/L Total Protein (6.3-8.2) g/dL Albumin (3.5-5.0) g/dL 11/18/17 11/19/17 11/19/17 Range/Units 21:58 00:00 04:03 RBC (4.30-5.90) m/uL Hgb (13.0-17.5) gm/dL Hct (39.0-53.0) % MCV (80.0-100.0) fL RDW (11.5-15.5) % Plt Count (150-450) k/uL Lymphocytes # (Manual) (1.0-4.8) k/uL Chloride (98-107) mmol/L BUN (9-20) mg/dL Creatinine (0.66-1.25) mg/dL Glucose (74-99) mg/dL POC Glucose (mg/dL) 231 H 188 H 155 H (75-99) mg/dL Calcium (8.4-10.2) mg/dL AST (17-59) U/L Creatine Kinase (55-170) U/L Total Protein (6.3-8.2) g/dL Albumin (3.5-5.0) g/dL 11/19/17 11/19/17 11/19/17 Range/Units 04:38 04:38 07:36 RBC 3.46 L (4.30-5.90) m/uL Hgb 8.7 L (13.0-17.5) gm/dL Hct 26.3 L (39.0-53.0) % MCV 76.0 L (80.0-100.0) fL RDW 17.5 H (11.5-15.5) % Plt Count 91 L (150-450) k/uL Lymphocytes # (Manual) 0.47 L (1.0-4.8) k/uL Chloride 110 H (98-107) mmol/L BUN 43 H (9-20) mg/dL Creatinine 2.50 H (0.66-1.25) mg/dL Glucose 121 H (74-99) mg/dL POC Glucose (mg/dL) 115 H (75-99) mg/dL Calcium 7.2 L (8.4-10.2) mg/dL AST 192 H (17-59) U/L Creatine Kinase 34566 H (55-170) U/L Total Protein 4.8 L (6.3-8.2) g/dL Albumin 2.3 L (3.5-5.0) g/dL 11/19/17 Range/Units 11:21 RBC (4.30-5.90) m/uL Hgb (13.0-17.5) gm/dL Hct (39.0-53.0) % MCV (80.0-100.0) fL RDW (11.5-15.5) % Plt Count (150-450) k/uL Lymphocytes # (Manual) (1.0-4.8) k/uL Chloride (98-107) mmol/L BUN (9-20) mg/dL Creatinine (0.66-1.25) mg/dL Glucose (74-99) mg/dL POC Glucose (mg/dL) 203 H (75-99) mg/dL Calcium (8.4-10.2) mg/dL AST (17-59) U/L Creatine Kinase (55-170) U/L Total Protein (6.3-8.2) g/dL Albumin (3.5-5.0) g/dL Microbiology - Last 24 Hours (Table) 11/15/17 11:20 Blood Culture - Preliminary Blood No Growth after 96 hours 11/16/17 08:52 Blood Culture - Preliminary Blood No Growth after 72 hours 11/16/17 08:42 Blood Culture - Preliminary Blood No Growth after 72 hours 11/16/17 17:18 Gram Stain - Preliminary Sputum Sputum Culture - Preliminary Streptococcus pneumoniae Assessment and Plan Plan: Impression: 1. Acute ischemic stroke, left PICA distribution 2. Respiratory failure on mechanical ventilation 3. Acute rhabdomyolysis 4. Renal insufficiency 5. Hypertension 6. Diabetes Recommendation: It does appear patient has suffered an acute ischemic stroke involving the left cerebellum. It is concerning that patient may have had a brainstem infarct. Continue aspirin 300 mg rectally.Patient will need an MRI to confirm this. If patient's status improves and he tolerates weaning off the ventilator, an MRI will be ordered. Continue current ICU management. Prognosis is guarded. Continue neurological checks.I will continue to follow with you. Further recommendations to follow. I performed an examination of the patient and discussed the management with the EPIC WILLOW ANALYST. I have reviewed the EPIC WILLOW ANALYST notes and agree with the findings and plan of care.
[2017-11-19 15:59] LABS: Glucose,Whole Blood 180 mg/dL (75-99)
[2017-11-19] MEDS ORDERED: ACETAMINOPHEN IV (For NPO) 1,000 MG in EMPTY BAG 1 BAG IVPB ONE (16:00)
[2017-11-19] MEDS: METOPROLOL TARTRATE 50 MG TAB PO SCH (20:10)
[2017-11-19 20:21] LABS: Glucose,Whole Blood 149 mg/dL (75-99)
--- NOTE | 2017-11-19 23:03 | P.PN ---
Subjective Progress Note Date: 11/18/17 Principal diagnosis: Rhabdomyolysis and acute respiratory failure Patient is a 72-year-old male with a known history of hypertension, diabetes type 2 [id number] came to the hospital with complaints of weakness in his both legs. As per the patient returned has been going on for the past few months which is getting worse for the past 2 weeks. Yesterday he fell on the ground due to he was unable to bear his weight. He fell twice yesterday and once today trying to go to the bathroom. He was on the ground apparently for about 4 hours until his son came in. Otherwise a lemons denied any complaints of chest pain or shortness of breath. No fever no chills. Patient has been having cough congestion and cold as well as a runny nose for the past 2 -3 months as per the patient. Patient denied any alcohol abuse. Patient says that he has been taking his diabetic medications regularly. Otherwise patient is a poor historian. No recent travel or sick contacts at home. Patient lives alone by himself. Chest x-ray showed mild vascular congestion CT head showed no acute intracranial process. Is related chronic small vessel ischemic changes noted. CPK level elevated greater than 2K Troponin slightly elevated. TSH within normal limits UA negative 11/16/2017 Patient became fluid overloaded last night and was transferred to MICU due to acute hypoxic respiratory failure. Currently patient is on mechanical ventilator. Patient is being continued on IV fluids. Cardiology and pulmonary is following. 2-D echo showed normal ejection fraction. BNP is 1050. Troponin is trending down. Heparin has been discontinued. CPK level is still elevated at 7814 11/17/2017 Patient remained on mechanical ventilator. Otherwise chest x-ray showed improved aeration. CPK level is still elevated. Continued on IV fluids. Patient developed fever t today afternoon. Patient was given a dose of vancomycin. No other significant electrolyte abnormalities noted. Discussed with family at bedside. Pulmonary is planning to wean off from the ventilator. 11/18/2017 Patient is currently on mechanical ventilator. Chest x-ray showed persistent airspace opacities of bilateral upper lungs. Currently on antibiotics in the form of vancomycin and Zosyn. Blood pressure is uncontrolled. Urine output is improving otherwise. Patient was placed pressure support and weaning trial was initiated as the patient became extremely tachypneic and tachycardic and unable to follow commands. CT head was ordered. Which showed cerebellar infarct. Neurology has been consulted as well. Current medications reviewed. Objective - Vital Signs Vital signs: Vital Signs Temp 98.7 F 11/18/17 12:00 Pulse 103 H 11/18/17 20:15 Resp 21 11/18/17 19:00 BP 144/55 11/18/17 19:00 Pulse Ox 94 L 11/18/17 19:00 Intake & Output 11/18/17 11/18/17 11/19/17 06:59 18:59 06:59 Intake Total 2966.908 1401.627 14.833 Output Total 470 921 Balance 2496.908 480.627 14.833 Weight 65.9 kg Intake: IV 1688.0 718.5 Piperacillin-Tazobactam 3 75.0 12.5 .375 gm In Dextrose/Water 1 50ml.bag @ 12.5 mls/hr IVPB Q8H [facility] Rx#: [id number] Pressure Bag 63 106 Sodium Chloride 0.9% 1, 550 600 000 ml @ 50 mls/hr IV . Q20H [facility] Rx#:[id number] Sodium Chloride 0.9% 1, 1000 000 ml @ 999 mls/hr IV . Q1H1M [facility] Rx#:[id number] Intake, IV Titration 423.908 490.127 14.833 Amount Clevidipine Butyrate 25 190.633 312.567 14.833 mg In Empty Bag 1 bag @ 1 MG/HR 2 mls/hr IV .Q24H [facility] Rx#:[id number] Propofol 1,000 mg In 233.275 177.560 Empty Bag 1 bag @ Titrate IV .Q0M [facility] Rx#: [id number] Tube Feeding 765 193 Other 90 Output: Urine 470 921 Other: Voiding Method Indwelling Catheter Indwelling Catheter ABP, PAP, CO, CI - Last Documented Arterial Blood Pressure 144/46 - Exam PHYSICAL EXAMINATION: Patient is lying in the bed comfortably, no acute distress, currently on mechanical ventilator HEENT: Normocephalic. Neck is supple. Pupils reactive. Nostrils clear. Oral cavity is moist. Ears reveal no drainage. Neck reveals no JVD, carotid bruits, or thyromegaly. CHEST EXAMINATION: Trachea is central. Symmetrical expansion. Lung gregory clear to auscultation and percussion. CARDIAC: Normal S1, S2 with no gallops. No murmurs ABDOMEN: Soft. Bowel sounds normal. No organomegaly. No abdominal bruits. Extremities: reveal no edema. No clubbing or cyanosis Neurologically: patient is sedated and intubated. No focal deficits noted Skin: No rash or skin lesions. Psychiatric: Could not be assessed Musculoskeletal: No joint swelling or deformity. Normal range of motion. - Labs CBC & Chem 7: 11/19/17 04:38 11/19/17 04:38 Labs: Abnormal Lab Results - Last 24 Hours (Table) 11/17/17 11/18/17 11/18/17 Range/Units 23:53 03:32 04:50 RBC 3.64 L (4.30-5.90) m/uL Hgb 8.7 L (13.0-17.5) gm/dL Hct 27.8 L (39.0-53.0) % MCV 76.2 L (80.0-100.0) fL MCH 23.9 L (25.0-35.0) pg RDW 17.5 H (11.5-15.5) % Plt Count 77 L (150-450) k/uL Lymphocytes # 0.8 L (1.0-4.8) k/uL ABG pH (7.35-7.45) ABG HCO3 (21-25) mmol/L Chloride (98-107) mmol/L BUN (9-20) mg/dL Creatinine (0.66-1.25) mg/dL Glucose (74-99) mg/dL POC Glucose (mg/dL) 191 H 270 H (75-99) mg/dL Calcium (8.4-10.2) mg/dL Creatine Kinase (55-170) U/L 11/18/17 11/18/17 11/18/17 Range/Units 04:50 05:20 07:57 RBC (4.30-5.90) m/uL Hgb (13.0-17.5) gm/dL Hct (39.0-53.0) % MCV (80.0-100.0) fL MCH (25.0-35.0) pg RDW (11.5-15.5) % Plt Count (150-450) k/uL Lymphocytes # (1.0-4.8) k/uL ABG pH 7.34 L (7.35-7.45) ABG HCO3 20 L (21-25) mmol/L Chloride 110 H (98-107) mmol/L BUN 36 H (9-20) mg/dL Creatinine 1.80 H (0.66-1.25) mg/dL Glucose 207 H (74-99) mg/dL POC Glucose (mg/dL) 188 H (75-99) mg/dL Calcium 7.2 L (8.4-10.2) mg/dL Creatine Kinase (55-170) U/L 11/18/17 11/18/17 11/18/17 Range/Units 11:28 16:56 18:30 RBC (4.30-5.90) m/uL Hgb (13.0-17.5) gm/dL Hct (39.0-53.0) % MCV (80.0-100.0) fL MCH (25.0-35.0) pg RDW (11.5-15.5) % Plt Count (150-450) k/uL Lymphocytes # (1.0-4.8) k/uL ABG pH (7.35-7.45) ABG HCO3 (21-25) mmol/L Chloride (98-107) mmol/L BUN (9-20) mg/dL Creatinine (0.66-1.25) mg/dL Glucose (74-99) mg/dL POC Glucose (mg/dL) 113 H 175 H (75-99) mg/dL Calcium (8.4-10.2) mg/dL Creatine Kinase 54979 H (55-170) U/L 11/18/17 Range/Units 20:00 RBC (4.30-5.90) m/uL Hgb (13.0-17.5) gm/dL Hct (39.0-53.0) % MCV (80.0-100.0) fL MCH (25.0-35.0) pg RDW (11.5-15.5) % Plt Count (150-450) k/uL Lymphocytes # (1.0-4.8) k/uL ABG pH (7.35-7.45) ABG HCO3 (21-25) mmol/L Chloride (98-107) mmol/L BUN (9-20) mg/dL Creatinine (0.66-1.25) mg/dL Glucose (74-99) mg/dL POC Glucose (mg/dL) 232 H (75-99) mg/dL Calcium (8.4-10.2) mg/dL Creatine Kinase (55-170) U/L Microbiology - Last 24 Hours (Table) 11/15/17 11:20 Blood Culture - Preliminary Blood No Growth after 72 hours 11/16/17 08:52 Blood Culture - Preliminary Blood No Growth after 48 hours 11/16/17 08:42 Blood Culture - Preliminary Blood No Growth after 48 hours Assessment and Plan Assessment: Acute ischemic stroke involving left PICA distribution encephalopathy likely metabolic versus CVA Acute hypoxic respiratory failure likely due to fluid overload. Patient still having bilateral upper lobe persistent of bases Hypertensive urgency Status post fall due to bilateral lower admitted weakness. CT head negative for any acute CVA Severe rhabdomyolysis Elevated troponin level. Likely due to rhabdo and unlikely NSTEMI. DC'd heparin Hypertension uncontrolled Diabetes type 2 [id number]. Uncontrolled his B A1c 8.8 Microcytic anemia. Rule out iron deficiency Acute kidney injury. Likely prerenal. Possible ATN DVT prophylaxis. Plan: Patient will be continued on mechanical ventilator and also on IV fluids. Follow-up CPK level. 2-D echo showed normal ejection fraction. Cardiology and pulmonary is following. Neurology has been consulted. Repeat CT showed new area of decreased attenuation of the left cerebellar inferior. EEG was ordered. Otherwise continue the current management. Further recommendations based on the clinical course. Prognosis is guarded with multiple medical problems and comorbid conditions. Discussed with his daughter and son at bedside in detail. Time with Patient: Greater than 30
--- NOTE | 2017-11-19 23:06 | P.PN ---
Subjective Progress Note Date: 11/19/17 Principal diagnosis: Rhabdomyolysis and acute respiratory failure Patient is a 72-year-old male with a known history of hypertension, diabetes type 2 [id number] came to the hospital with complaints of weakness in his both legs. As per the patient returned has been going on for the past few months which is getting worse for the past 2 weeks. Yesterday he fell on the ground due to he was unable to bear his weight. He fell twice yesterday and once today trying to go to the bathroom. He was on the ground apparently for about 4 hours until his son came in. Otherwise a lemons denied any complaints of chest pain or shortness of breath. No fever no chills. Patient has been having cough congestion and cold as well as a runny nose for the past 2 -3 months as per the patient. Patient denied any alcohol abuse. Patient says that he has been taking his diabetic medications regularly. Otherwise patient is a poor historian. No recent travel or sick contacts at home. Patient lives alone by himself. Chest x-ray showed mild vascular congestion CT head showed no acute intracranial process. Is related chronic small vessel ischemic changes noted. CPK level elevated greater than 2K Troponin slightly elevated. TSH within normal limits UA negative 11/16/2017 Patient became fluid overloaded last night and was transferred to MICU due to acute hypoxic respiratory failure. Currently patient is on mechanical ventilator. Patient is being continued on IV fluids. Cardiology and pulmonary is following. 2-D echo showed normal ejection fraction. BNP is 1050. Troponin is trending down. Heparin has been discontinued. CPK level is still elevated at 7814 11/17/2017 Patient remained on mechanical ventilator. Otherwise chest x-ray showed improved aeration. CPK level is still elevated. Continued on IV fluids. Patient developed fever t today afternoon. Patient was given a dose of vancomycin. No other significant electrolyte abnormalities noted. Discussed with family at bedside. Pulmonary is planning to wean off from the ventilator. 11/18/2017 Patient is currently on mechanical ventilator. Chest x-ray showed persistent airspace opacities of bilateral upper lungs. Currently on antibiotics in the form of vancomycin and Zosyn. Blood pressure is uncontrolled. Urine output is improving otherwise. Patient was placed pressure support and weaning trial was initiated as the patient became extremely tachypneic and tachycardic and unable to follow commands. CT head was ordered. Which showed cerebellar infarct. Neurology has been consulted as well. 11/19/2017 Patient is currently on mechanical ventilator with assist control. Chest x-ray showed upper lobe infiltrates. EEG showed background rhythm slowing consistent with encephalopathy. Otherwise CPK level is still elevated 13,467. Currently on normal saline at 50 mL per hour. Complete review of systems could not be obtained from the patient. Current medications reviewed. Objective - Vital Signs Vital signs: Vital Signs Temp 99.9 F H 11/19/17 12:00 Pulse 99 11/19/17 14:00 Resp 20 11/19/17 14:00 BP 159/58 11/19/17 14:00 Pulse Ox 92 L 11/19/17 14:00 Intake & Output 11/18/17 11/19/17 11/19/17 18:59 06:59 18:59 Intake Total 0620.423 5380.691 1090.566 Output Total 921 915 520 Balance 480.627 292.691 570.566 Weight 67 kg 67 kg Intake: IV 718.5 641.5 687.0 Magnesium Sulfate-D5w Pmx 200 1 gm In Dextrose/Water 1 100ml.bag @ 100 mls/hr IVPB Q1H [facility] Rx#: [id number] Piperacillin-Tazobactam 3 12.5 37.5 75.0 .375 gm In Dextrose/Water 1 50ml.bag @ 12.5 mls/hr IVPB Q8H [facility] Rx#: [id number] Pressure Bag 106 54 12 Sodium Chloride 0.9% 1, 600 550 400 000 ml @ 50 mls/hr IV . Q20H [facility] Rx#:[id number] Intake, IV Titration 490.127 196.191 133.566 Amount Clevidipine Butyrate 25 312.567 93.733 71.666 mg In Empty Bag 1 bag @ 1 MG/HR 2 mls/hr IV .Q24H [facility] Rx#:[id number] Propofol 1,000 mg In 177.560 102.458 61.900 Empty Bag 1 bag @ Titrate IV .Q0M [facility] Rx#: [id number] Tube Feeding 193 260 270 Other 110 Output: Urine 921 915 520 Other: Voiding Method Indwelling Catheter Indwelling Catheter Indwelling Catheter ABP, PAP, CO, CI - Last Documented Arterial Blood Pressure 177/59 - Exam PHYSICAL EXAMINATION: Patient is lying in the bed comfortably, no acute distress, currently on mechanical ventilator HEENT: Normocephalic. Neck is supple. Pupils reactive. Nostrils clear. Oral cavity is moist. Ears reveal no drainage. Neck reveals no JVD, carotid bruits, or thyromegaly. CHEST EXAMINATION: Trachea is central. Symmetrical expansion. Lung gregory clear to auscultation and percussion. CARDIAC: Normal S1, S2 with no gallops. No murmurs ABDOMEN: Soft. Bowel sounds normal. No organomegaly. No abdominal bruits. Extremities: reveal no edema. No clubbing or cyanosis Neurologically: patient is sedated and intubated. No focal deficits noted Skin: No rash or skin lesions. Psychiatric: Could not be assessed Musculoskeletal: No joint swelling or deformity. Normal range of motion. - Labs CBC & Chem 7: 11/19/17 04:38 11/19/17 04:38 Labs: Abnormal Lab Results - Last 24 Hours (Table) 11/18/17 11/18/17 11/18/17 Range/Units 16:56 18:30 20:00 RBC (4.30-5.90) m/uL Hgb (13.0-17.5) gm/dL Hct (39.0-53.0) % MCV (80.0-100.0) fL RDW (11.5-15.5) % Plt Count (150-450) k/uL Lymphocytes # (Manual) (1.0-4.8) k/uL Chloride (98-107) mmol/L BUN (9-20) mg/dL Creatinine (0.66-1.25) mg/dL Glucose (74-99) mg/dL POC Glucose (mg/dL) 175 H 232 H (75-99) mg/dL Calcium (8.4-10.2) mg/dL AST (17-59) U/L Creatine Kinase 65428 H (55-170) U/L Total Protein (6.3-8.2) g/dL Albumin (3.5-5.0) g/dL 11/18/17 11/19/17 11/19/17 Range/Units 21:58 00:00 04:03 RBC (4.30-5.90) m/uL Hgb (13.0-17.5) gm/dL Hct (39.0-53.0) % MCV (80.0-100.0) fL RDW (11.5-15.5) % Plt Count (150-450) k/uL Lymphocytes # (Manual) (1.0-4.8) k/uL Chloride (98-107) mmol/L BUN (9-20) mg/dL Creatinine (0.66-1.25) mg/dL Glucose (74-99) mg/dL POC Glucose (mg/dL) 231 H 188 H 155 H (75-99) mg/dL Calcium (8.4-10.2) mg/dL AST (17-59) U/L Creatine Kinase (55-170) U/L Total Protein (6.3-8.2) g/dL Albumin (3.5-5.0) g/dL 11/19/17 11/19/17 11/19/17 Range/Units 04:38 04:38 07:36 RBC 3.46 L (4.30-5.90) m/uL Hgb 8.7 L (13.0-17.5) gm/dL Hct 26.3 L (39.0-53.0) % MCV 76.0 L (80.0-100.0) fL RDW 17.5 H (11.5-15.5) % Plt Count 91 L (150-450) k/uL Lymphocytes # (Manual) 0.47 L (1.0-4.8) k/uL Chloride 110 H (98-107) mmol/L BUN 43 H (9-20) mg/dL Creatinine 2.50 H (0.66-1.25) mg/dL Glucose 121 H (74-99) mg/dL POC Glucose (mg/dL) 115 H (75-99) mg/dL Calcium 7.2 L (8.4-10.2) mg/dL AST 192 H (17-59) U/L Creatine Kinase 01131 H (55-170) U/L Total Protein 4.8 L (6.3-8.2) g/dL Albumin 2.3 L (3.5-5.0) g/dL 11/19/17 Range/Units 11:21 RBC (4.30-5.90) m/uL Hgb (13.0-17.5) gm/dL Hct (39.0-53.0) % MCV (80.0-100.0) fL RDW (11.5-15.5) % Plt Count (150-450) k/uL Lymphocytes # (Manual) (1.0-4.8) k/uL Chloride (98-107) mmol/L BUN (9-20) mg/dL Creatinine (0.66-1.25) mg/dL Glucose (74-99) mg/dL POC Glucose (mg/dL) 203 H (75-99) mg/dL Calcium (8.4-10.2) mg/dL AST (17-59) U/L Creatine Kinase (55-170) U/L Total Protein (6.3-8.2) g/dL Albumin (3.5-5.0) g/dL Microbiology - Last 24 Hours (Table) 11/15/17 11:20 Blood Culture - Preliminary Blood No Growth after 96 hours 11/16/17 08:52 Blood Culture - Preliminary Blood No Growth after 72 hours 11/16/17 08:42 Blood Culture - Preliminary Blood No Growth after 72 hours 11/16/17 17:18 Gram Stain - Preliminary Sputum Sputum Culture - Preliminary Streptococcus pneumoniae Assessment and Plan Assessment: Acute ischemic stroke involving left PICA distribution encephalopathy likely metabolic versus CVA Acute hypoxic respiratory failure likely due to fluid overload. Patient still having bilateral upper lobe persistent of bases Hypertensive urgency Status post fall due to bilateral lower admitted weakness. CT head negative for any acute CVA Severe rhabdomyolysis Elevated troponin level. Likely due to rhabdo and unlikely NSTEMI. DC'd heparin Hypertension uncontrolled Diabetes type 2 [id number]-[id number]. Uncontrolled his B A1c 8.8 Microcytic anemia. Rule out iron deficiency Acute kidney injury. Likely prerenal. Possible ATN DVT prophylaxis. Plan: Patient will be continued on mechanical ventilator and also on IV fluids. Follow-up CPK level. 2-D echo showed normal ejection fraction. Cardiology and pulmonary is following. Neurology has been consulted. Repeat CT showed new area of decreased attenuation of the left cerebellar inferior. EEG consistent with encephalopathy. Otherwise continue the current management. Further recommendations based on the clinical course. Prognosis is guarded with multiple medical problems and comorbid conditions. Discussed with his daughter and son at bedside in detail. Time with Patient: Greater than 30
[2017-11-19 23:45] LABS: Glucose,Whole Blood 154 mg/dL (75-99)
[2017-11-20] MEDS: CLEVIDIPINE BUTYRATE 25 MG in EMPTY BAG 1 BAG IV SCH ×7 (01:45→23:03)
[2017-11-20] MEDS: IPRATROPIUM-ALBUTEROL 3 ML NEB INHALATION SCH ×6 (03:10→23:12)
[2017-11-20 04:13] LABS: Glucose,Whole Blood 162 mg/dL (75-99)
[2017-11-20] MEDS: INSULIN ASPART 100 UNIT/ML 1 ML 10 ML VIAL SQ SCH ×5 (04:19→19:54)
[2017-11-20 04:22] LABS: Anisocytosis Slight; Basophils # (A) 0.1 k/uL (0-0.2); Basophils % (A) 1 %; Eosinophils % (A) 0 %; HCT 24.4 % (39.0-53.0); Hypochromasia Marked; Lymphocytes # (A) 0.8 k/uL (1.0-4.8); Lymphocytes % (A) 10 %; MCV 73.8 fL (80.0-100.0); Mean Platelet Volume 10.1; Microcytosis Moderate; Monocytes # (A) 0.2 k/uL (0-1.0); Monocytes % (A) 3 %; Neutrophils # (A) 6.4 k/uL (1.3-7.7); Neutrophils % (A) 83 %; Platelet Count 131 k/uL (150-450); RDW 18.9 % (11.5-15.5); WBC 7.7 k/uL (3.8-10.6)
[2017-11-20 04:39] LABS: HGB 7.1 gm/dL (13.0-17.5); MCHC 29.2 g/dL (31.0-37.0)
[2017-11-20 04:40] LABS: MCH 21.4 pg (25.0-35.0)
[2017-11-20 05:10] LABS: Poikilocytosis (M) Present
[2017-11-20 05:27] LABS: Calcium 7.3 mg/dL (8.4-10.2); Magnesium 2.3 mg/dL (1.6-2.3); Phosphorus 6.5 mg/dL (2.5-4.5)
[2017-11-20 05:28] LABS: Potassium 4.5 mmol/L (3.5-5.1)
[2017-11-20] MEDS: PROPOFOL 1,000 MG in EMPTY BAG 1 BAG IV SCH ×3 (05:47→21:26)
[2017-11-20] MEDS: METOPROLOL TARTRATE 5 MG/5 ML VIAL IVP PRN ×2 (05:50→14:56)
[2017-11-20] MEDS: PIPERACILLIN-TAZOBACTAM 3.375 GM in DEXTROSE/WATER 1 50ML.BAG IVPB SCH ×2 (06:10→20:09)
[2017-11-20 06:20] LABS: ABG Base Excess -7.1 mmol/L; ABG HCO3 19 mmol/L (21-25); ABG PCO2 46 mmHg (35-45); ABG PH 7.24 (7.35-7.45); ABG PO2 109 mmHg (83-108); ABG TCO2 20 mmol/L (19-24)
--- NOTE | 2017-11-20 06:36 | XR ---
EXAMINATION TYPE: XR chest 1V portable DATE OF EXAM: 11/20/2017 HISTORY: Tube placement. REFERENCE: Previous study dated 11/19/2017. FINDINGS: The patient is ET tube, NG tube and left internal jugular catheter remain in place, unchang ed in appearance. Lung volumes are prominent. There is continuing interstitial change. Heart size upper limits of lacy l. Pleural spaces are clear. IMPRESSION: NO SIGNIFICANT INTERVAL CHANGE IN THE APPEARANCE OF THE CHEST.
[2017-11-20] MEDS ORDERED: cloNIDine 0.1 MG/24HR PATCH 1 PATCH PATCH TRANSDERM SCH ×2 (07:00)
[2017-11-20] MEDS: HYDROmorphone 2 MG/ML 1 ML SYRINGE IVP PRN ×5 (07:56→22:57)
[2017-11-20] MEDS: NITROGLYCERIN OINT 1 INCH/GM PACKET TOPICAL SCH ×3 (08:02→23:08)
[2017-11-20] MEDS: PANTOPRAZOLE 40 MG/10 ML VIAL IVP SCH (08:20)
[2017-11-20 08:21] LABS: Glucose,Whole Blood 186 mg/dL (75-99)
[2017-11-20] MEDS: METOPROLOL TARTRATE 50 MG TAB PO SCH ×2 (08:26→20:06)
[2017-11-20] MEDS: ASPIRIN 300 MG SUPP RECTAL SCH (08:32)
[2017-11-20] MEDS: CHLORHEXIDINE GLUCONATE 15 ML CUP MUCOUS MEM SCH ×2 (08:43→20:03)
[2017-11-20] MEDS ORDERED: FUROSEMIDE 10 MG/ML 2 ML VIAL IV ONE (10:53)
--- NOTE | 2017-11-20 11:33 | P.PN ---
Subjective Progress Note Date: 11/20/17 Principal diagnosis: Acute hypoxic respiratory failure secondary to fluid volume overload, rhabdomyolysis, acute kidney failure. Consult dated 11/16/2017 72-year-old black male who presented to the hospital with complaints of weakness in his lower extremities. The patient apparently had multiple falls at home. The weakness apparently was worse over the last couple weeks. He presented with an episode of rhabdomyolysis and subsequently went on to develop renal fire with fluid overload. The patient apparently had progressive shortness of breath out on the floor and sometime early this morning went into chencho distress. He was placed on BiPAP therapy and percent oxygen by the hospitalist. Subsequent to that, he was moved to the ICU but because of progressive decline in his respiratory status, he required intubation and mechanical ventilation. I put him on the ventilator at the assist control mode , rate of 20 tidal volume 400 and FiO2 100% and PEEP of 5. The patient currently is down to 50% FiO2. The rest of the studies of the same. The patient's currently on diprovan or propofol at 40 mics per kilogram per minute. Also receiving a saline IV at 20 mL an hour. Her blood gases prior to intubation included a PaO2 of 76 a PaCO2 of 61 and a pH of 7.2. Post intubation , PaO2 was 206 PaCO2 was 38 and pH of 7.35. The second blood gas was consistent with hyperoxia and a mild metabolic acidosis. On 11/17/2017 patient seen in intensive care, remains sedated, and on mechanical ventilator. Vent settings assist control mode with a rate of 20, tidal volume 400, FiO2 of 60%, and PEEP of 5. Maintenance IV fluid is 0.9 normal saline in the 100 ML per hour, Propofol is infusing at 20 mics per kilo per minute. Today's chest x-ray shows improvement in aeration. Today's blood work was reviewed, blood gases were reviewed, pH is 7.37, pCO2 39, pO2 is 99, this was done on 40% FiO2. No evidence of leukocytosis, hemoglobin is 9.5, renal profile shows slight worsening with the BUN of 31, creatinine of 1.8. No acute electrolyte abnormalities. Microbiology has been reviewed, blood urine and sputum cultures are negative so far. Yesterday we gave the patient 40 of Lasix IV, and today's chest x-ray showed significant improvement in the appearance of bilateral upper lobe infiltrates. We will give the patient sedation holiday, and place him on PSV 5/CPAP 5 spontaneous breathing trial. On 11/18/2017 patient seen in follow-up in intensive care. Remains sedated and mechanically ventilated. Sedation holiday is in progress, Diprivan has been on hold for 30 minutes, patient is becoming more tachypneic, slightly more tachycardic, but not following commands, still remains lethargic. Vent settings before meals mode with a rate of 20, tidal volume 400, FiO2 40% and PEEP of 5. Blood gas shows pH of 7.34, pCO2 39, pO2 is 91, and FiO2 of 40%. Today's chest x-ray shows post production assistant airspace opacities of bilateral upper lungs. Yesterday on 11/17/2017 patient had a fever spike, with a temp of 102.7 F. Patient was pancultured again, and placed on a combination of Zosyn and one- time dose vancomycin. Sputum blood and urine cultures remain negative. This morning his temp is 97.8F. Patient remains somewhat hypertensive, with systolic ranging between 150-170's, less than cardiology had placed the patient Clevidipine drip, which is currently running at 12 mg per hour, propofol is on hold, maintenance fluids 0.9 at 50. Patient did receive a bolus of 0.9 normal saline last night for low urine output. This morning his urine output has improved, it is anywhere between 30 and 50 ML per hour. Patient is an 2940 mL positive fluid balance over the last 24 hours. Lab Work was reviewed, WBC within normal limits of 7.4, hemoglobin is 8.7, platelets are down to 77, Lovenox will be discontinued, serum sodium is 139, potassium is 4.4, renal profile is relatively stable, B1 is 36, creatinine is 1.8. Patient placed on PSV 5 and CPAP of 5 spontaneous breathing trial, and extremely tachypneic and tachycardic, mentation very obtunded, nonpurposeful, patient was placed back on assist control mode of ventilation. Not ready for spontaneous breathing trial at this time. We will give 20 of IV Lasix today. He has been adequately fluid resuscitated. The patient is seen again today 11/19/2017 in follow-up in the intensive care unit. He remains intubated and sedated on the mechanical ventilator. Current settings are assist control of 20, tidal volume 400, FiO2 50%, PEEP of 5. Morning blood gases reveal a P O2 of 89, pCO2 38, pH 7.36. Current drips include Cleviprex at 15 mg per hour, propofol currently off, 0.9 normal saline at 50 mL per hour. He is being nourished with Vital HP 20 mL per hour which is his goal. His sputum culture is now positive for Streptococcus pneumoniae. He remains on Zosyn. Chest x-ray reveals patchy perihilar and upper lobe infiltrates. White count 7.9, hemoglobin 8.7, platelet count 91,000. Creatinine 2.50. Creatinine kinase 13,467. Follow-up computed tomography scan of the brain now reveals a new area of decreased attenuation within the left cerebellar hemisphere inferiorly compatible with CVA P ICA distribution. EEG does reveal background rhythm slowing consistent with encephalopathy. White count 7.9, hemoglobin 8.7, platelet count 91,000, BUN 43, creatinine 2.50, creatinine kinase 13,467. The patient is seen again today 11/20/2017 in follow-up in the intensive care unit. He remains intubated and on the mechanical ventilator. Current settings are assist-control rate of 20, tidal volume 400, FiO2 50% and a PEEP of 5. Chest x-ray continues to show interstitial edema. No significant pleural effusions. Sputum is positive for Streptococcus pneumoniae. He remains on Zosyn. He has a 0.9 normal saline at 50 MLS per hour. Propofol at 30 mcg/kg/ m. In the propofol is weaned patient gets tachypneic and quite hypertensive up to 200 systolic. His Cleviprex is currently off. He has a clonidine patch in place he is receiving Lopressor 50 mg twice a day. Nitropaste in place. White count 7.7, hemoglobin 7.1, creatinine 3.48. Urine output is minimal. Objective - Vital Signs Vital signs: Vital Signs Temp 99.6 F 11/20/17 10:00 Pulse 95 11/20/17 11:20 Resp 25 H 11/20/17 11:00 BP 134/53 11/20/17 10:00 Pulse Ox 94 L 11/20/17 11:00 Intake & Output 11/19/17 11/20/17 11/20/17 18:59 06:59 18:59 Intake Total 4189.629 2470.748 509.051 Output Total 740 395 120 Balance 820.813 683.748 389.051 Weight 67 kg 68.2 kg Intake: IV 887.0 716 280 Magnesium Sulfate-D5w Pmx 200 1 gm In Dextrose/Water 1 100ml.bag @ 100 mls/hr IVPB Q1H [facility] Rx#: [id number] Piperacillin-Tazobactam 3 75.0 50 .375 gm In Dextrose/Water 1 50ml.bag @ 12.5 mls/hr IVPB Q8H [facility] Rx#: [id number] Pressure Bag 12 66 30 Sodium Chloride 0.9% 1, 600 600 250 000 ml @ 50 mls/hr IV . Q20H [facility] Rx#:[id number] Intake, IV Titration 263.813 312.748 129.051 Amount Clevidipine Butyrate 25 171.666 226.066 59.534 mg In Empty Bag 1 bag @ 1 MG/HR 2 mls/hr IV .Q24H [facility] Rx#:[id number] Propofol 1,000 mg In 92.147 86.682 69.517 Empty Bag 1 bag @ Titrate IV .Q0M [facility] Rx#: [id number] Tube Feeding 410 50 100 Output: Urine 740 395 120 Other: Voiding Method Indwelling Catheter Indwelling Catheter Indwelling Catheter ABP, PAP, CO, CI - Last Documented Arterial Blood Pressure 149/50 - Exam No acute distress. The patient is currently on sedation holiday, remains obtunded, nonpurposeful. The patient is on the ventilator. There is an orally placed NG tube and endotracheal tube noted. HEENT examination is grossly unremarkable. Mucous membranes are moist. No oral lesions. Neck supple. Full range of motion. No adenopathy thyromegaly or neck vein distention. Cardiovascular examination reveals regular rhythm rate. S1-S2 normal. No S3 or S4. No discernible murmur noted. Lungs reveal bilateral breath sounds. No wheezes. Crackles in the posterior bases. Abdomen soft bowel sounds are heard. No masses or tenderness. Extremities are intact. No cyanosis clubbing or edema. Skin is without rash or lesion. Neurologic examination cannot be performed. - Labs CBC & Chem 7: 11/20/17 04:09 11/20/17 04:09 Labs: Abnormal Lab Results - Last 24 Hours (Table) 11/19/17 11/19/17 11/19/17 Range/Units 11:21 15:57 20:18 RBC (4.30-5.90) m/uL Hgb (13.0-17.5) gm/dL Hct (39.0-53.0) % MCV (80.0-100.0) fL MCH (25.0-35.0) pg MCHC (31.0-37.0) g/dL RDW (11.5-15.5) % Plt Count (150-450) k/uL Lymphocytes # (1.0-4.8) k/uL ABG pH (7.35-7.45) ABG pCO2 (35-45) mmHg ABG pO2 (83-108) mmHg ABG HCO3 (21-25) mmol/L Chloride (98-107) mmol/L Carbon Dioxide (22-30) mmol/L BUN (9-20) mg/dL Creatinine (0.66-1.25) mg/dL Glucose (74-99) mg/dL POC Glucose (mg/dL) 203 H 180 H 149 H (75-99) mg/dL Calcium (8.4-10.2) mg/dL Phosphorus (2.5-4.5) mg/dL Creatine Kinase (55-170) U/L 11/19/17 11/20/17 11/20/17 Range/Units 23:44 04:05 04:09 RBC 3.30 L (4.30-5.90) m/uL Hgb 7.1 L D (13.0-17.5) gm/dL Hct 24.4 L (39.0-53.0) % MCV 73.8 L (80.0-100.0) fL MCH 21.4 L (25.0-35.0) pg MCHC 29.2 L (31.0-37.0) g/dL RDW 18.9 H (11.5-15.5) % Plt Count 131 L (150-450) k/uL Lymphocytes # 0.8 L (1.0-4.8) k/uL ABG pH 7.24 L (7.35-7.45) ABG pCO2 46 H (35-45) mmHg ABG pO2 109 H (83-108) mmHg ABG HCO3 19 L (21-25) mmol/L Chloride (98-107) mmol/L Carbon Dioxide (22-30) mmol/L BUN (9-20) mg/dL Creatinine (0.66-1.25) mg/dL Glucose (74-99) mg/dL POC Glucose (mg/dL) 154 H (75-99) mg/dL Calcium (8.4-10.2) mg/dL Phosphorus (2.5-4.5) mg/dL Creatine Kinase (55-170) U/L 11/20/17 11/20/17 11/20/17 Range/Units 04:09 04:12 08:19 RBC (4.30-5.90) m/uL Hgb (13.0-17.5) gm/dL Hct (39.0-53.0) % MCV (80.0-100.0) fL MCH (25.0-35.0) pg MCHC (31.0-37.0) g/dL RDW (11.5-15.5) % Plt Count (150-450) k/uL Lymphocytes # (1.0-4.8) k/uL ABG pH (7.35-7.45) ABG pCO2 (35-45) mmHg ABG pO2 (83-108) mmHg ABG HCO3 (21-25) mmol/L Chloride 110 H (98-107) mmol/L Carbon Dioxide 19 L (22-30) mmol/L BUN 48 H (9-20) mg/dL Creatinine 3.48 H (0.66-1.25) mg/dL Glucose 154 H (74-99) mg/dL POC Glucose (mg/dL) 162 H 186 H (75-99) mg/dL Calcium 7.3 L (8.4-10.2) mg/dL Phosphorus 6.5 H (2.5-4.5) mg/dL Creatine Kinase 97482 H (55-170) U/L Microbiology - Last 24 Hours (Table) 11/16/17 08:52 Blood Culture - Preliminary Blood No Growth after 96 hours 11/16/17 08:42 Blood Culture - Preliminary Blood No Growth after 96 hours 11/16/17 17:18 Gram Stain - Final Sputum Sputum Culture - Final Streptococcus pneumoniae 11/15/17 11:20 Blood Culture - Preliminary Blood No Growth after 96 hours Assessment and Plan Assessment: Assessment: #1. Acute hypoxic respiratory failure secondary to fluid overload, evidence of bilateral upper lobe infiltrates. He is now positive for Streptococcus pneumoniae. Remains on Zosyn. #2. Encephalopathy, likely metabolic. Initial brain CT on 11/15/2017 showed age-related atrophic and chronic small vessel ischemic changes without any acute intracranial process, however, Computed tomography scan on 11/18/2017 reveals a new area of decreased attenuation within the left cerebellar hemisphere inferiorly compatible with CVA. PICA distribution. No evidence of hemorrhagic transformation. #3. Acute kidney injury, related to acute tubular necrosis #4 Rhabdomyolysis #5. Elevated troponin, likely due to rhabdomyolysis and possible non-ST elevated MN #6. Diabetes type 2 #7. Hypertension #8. Microcytic anemia #9. EtOH abuse, per family, the time of last drink is unknown #10. Thrombocytopenia, could be related to chronic alcohol abuse, Lovenox, or underlying sepsis. We'll stop the Lovenox for now Plan: The patient was seen and evaluated by Dr. Mae. His chest x-ray, ABGs and labs were all reviewed. When taken off sedation he remains unresponsive. The patient's family has stated they would not proceed with tracheostomy and/or PEG tube placement at this point. Dr. Mae had further discussions with the patient's daughter Desi. She will be speaking with other family members. She may consider comfort care. In the interim, we'll continue full supportive care. We will continue to follow and make further recommendations based on his clinical status. Critical care time 40 minutes. I, the cosigning physician, performed a history & physical examination of the patient. Lungs sounds bilateral scattered rhonchi.. Crackles in the posterior bases. Maintaining good O2 saturations in the 90s on 50% FiO2. I discussed the assessment and plan of care with my nurse practitioner, Mana Das. I attest to the above note as dictated by her. Time with Patient: Greater than 30
[2017-11-20 11:41] LABS: Albumin 2.3 g/dL (3.5-5.0); Total Bilirubin 0.4 mg/dL (0.2-1.3); Total Protein 4.9 g/dL (6.3-8.2)
[2017-11-20 11:42] LABS: Bilirubin, Delta 0.4 mg/dL (0.0-0.2)
[2017-11-20 12:11] LABS: Glucose,Whole Blood 175 mg/dL (75-99)
--- NOTE | 2017-11-20 13:13 | PN ---
PROGRESS NOTE Mr. Samuels is a 72-year-old male patient, with weakness, trip and fall who is intubated. He has had a CVA. His blood pressure is very high. He is on metoprolol 50 mg twice daily. PHYSICAL EXAMINATION: His blood pressure is elevated, breath sounds are reduced bilaterally. Heart sounds S1, S2, tachycardic. There is no rub, no gallop. Abdomen is soft, nontender. Extremities are warm. No edema. LABS: Reviewed and documented in the chart. IMPRESSION: 1. Cerebellar infarct. 2. Hypertension. 3. Type 2 diabetes. 4. Acute renal failure and rhabdomyolysis. SUGGEST: Further maximization of antihypertensive therapy. At this time since he is intubated, I will treat him with a clonidine patch TTS1 for gradual blood pressure control in addition to his beta blockers. MMODL / IJN: [id number] /
--- NOTE | 2017-11-20 14:45 | P.PN ---
Subjective Progress Note Date: 11/20/17 Patient is a 72-year-old -[place] male who is being followed by the neurology service for altered mental status. Patient was having frequent falls at home. Patient had a fall where he was unable to get up and he was brought to [facility]. Reportedly, he was down for several hours. Patient presented to the hospital with CPK around 10,000. Along with acute rhabdomyolysis he did have renal insufficiency as well. Patient was intubated and placed on mechanical ventilation for increased respiratory difficulty. Patient is sedated and remains on mechanical ventilation at this time. Initial computed tomography scan of the brain was done which was negative for any acute intracranial abnormalities. A repeat computed tomography scan of the brain was done following which showed hypoattenuation involving the left cerebellum. Patient had an EEG done which showed moderate encephalopathy with no epileptiform discharges seen.at the time of my evaluation, patient remains in the intensive care setting intubated on mechanical ventilation and sedated. 11/20/2017 Patient is a 72-year-old -[place] male who is being followed by the neurology service for CVA. He is currently seen in the intensive care unit and is intubated on mechanical ventilator. Staff informs me patient had trial of sedation holiday this morning and patient got tachypneic and quite hypertensive and was placed back on sedation. Patient did not have any increased neurological responses when off sedation. Patient continues to have cough and gag reflex. He is unresponsive to painful stimuli. As you recall, computed tomography scan of the brain revealed an acute ischemic stroke involving the left cerebellum. There is concern of an extension of the stroke and to the brain stem but patient is unable to have MRI done at this point. At the time of my evaluation, patient remains intubated on mechanical ventilation and sedated. Objective - Vital Signs Vital signs: Vital Signs Temp 99.1 F 11/20/17 12:00 Pulse 96 11/20/17 13:00 Resp 23 11/20/17 13:00 BP 170/70 11/20/17 13:00 Pulse Ox 94 L 11/20/17 13:00 Intake & Output 11/19/17 11/20/17 11/20/17 18:59 06:59 18:59 Intake Total 0687.401 7113.748 701.051 Output Total 740 395 200 Balance 820.813 683.748 501.051 Weight 67 kg 68.2 kg Intake: IV 887.0 716 392 Magnesium Sulfate-D5w Pmx 200 1 gm In Dextrose/Water 1 100ml.bag @ 100 mls/hr IVPB Q1H [facility] Rx#: [id number] Piperacillin-Tazobactam 3 75.0 50 .375 gm In Dextrose/Water 1 50ml.bag @ 12.5 mls/hr IVPB Q8H [facility] Rx#: [id number] Pressure Bag 12 66 42 Sodium Chloride 0.9% 1, 600 600 350 000 ml @ 50 mls/hr IV . Q20H [facility] Rx#:[id number] Intake, IV Titration 263.813 312.748 129.051 Amount Clevidipine Butyrate 25 171.666 226.066 59.534 mg In Empty Bag 1 bag @ 1 MG/HR 2 mls/hr IV .Q24H [facility] Rx#:[id number] Propofol 1,000 mg In 92.147 86.682 69.517 Empty Bag 1 bag @ Titrate IV .Q0M [facility] Rx#: [id number] Tube Feeding 410 50 180 Output: Urine 740 395 200 Other: Voiding Method Indwelling Catheter Indwelling Catheter Indwelling Catheter ABP, PAP, CO, CI - Last Documented Arterial Blood Pressure 172/53 - Exam PHYSICAL EXAM: GENERAL APPEARANCE: Patient is a 72-year-old -[place] male intubated on mechanical ventilation HEENT: Normocephalic, atraumatic, no obvious facial asymmetry is seen. Neck is supple with no masses felt. CARDIOVASCULAR: Regular rate and rhythm. ABDOMEN: Nontender, nondistended. EXTREMITIES: Show no edema or clubbing. NEUROLOGICAL EXAM:a meaningful neurological exam could not be performed due to patient being sedated and intubated on mechanical ventilator. He does not respond to any verbal or painful stimuli. No clonus is seen. No obvious facial asymmetry is noted. No seizure-like activity is seen or reported. Pupils are minimally reactive and equal. Patient has cough and gag reflex intact. - Labs CBC & Chem 7: 11/20/17 04:09 11/20/17 04:09 Labs: Abnormal Lab Results - Last 24 Hours (Table) 11/19/17 11/19/17 11/19/17 Range/Units 15:57 20:18 23:44 RBC (4.30-5.90) m/uL Hgb (13.0-17.5) gm/dL Hct (39.0-53.0) % MCV (80.0-100.0) fL MCH (25.0-35.0) pg MCHC (31.0-37.0) g/dL RDW (11.5-15.5) % Plt Count (150-450) k/uL Lymphocytes # (1.0-4.8) k/uL ABG pH (7.35-7.45) ABG pCO2 (35-45) mmHg ABG pO2 (83-108) mmHg ABG HCO3 (21-25) mmol/L Chloride (98-107) mmol/L Carbon Dioxide (22-30) mmol/L BUN (9-20) mg/dL Creatinine (0.66-1.25) mg/dL Glucose (74-99) mg/dL POC Glucose (mg/dL) 180 H 149 H 154 H (75-99) mg/dL Calcium (8.4-10.2) mg/dL Phosphorus (2.5-4.5) mg/dL Delta Bilirubin (0.0-0.2) mg/dL AST (17-59) U/L Creatine Kinase (55-170) U/L Total Protein (6.3-8.2) g/dL Albumin (3.5-5.0) g/dL 11/20/17 11/20/17 11/20/17 Range/Units 04:02 04:05 04:09 RBC 3.30 L (4.30-5.90) m/uL Hgb 7.1 L D (13.0-17.5) gm/dL Hct 24.4 L (39.0-53.0) % MCV 73.8 L (80.0-100.0) fL MCH 21.4 L (25.0-35.0) pg MCHC 29.2 L (31.0-37.0) g/dL RDW 18.9 H (11.5-15.5) % Plt Count 131 L (150-450) k/uL Lymphocytes # 0.8 L (1.0-4.8) k/uL ABG pH 7.24 L (7.35-7.45) ABG pCO2 46 H (35-45) mmHg ABG pO2 109 H (83-108) mmHg ABG HCO3 19 L (21-25) mmol/L Chloride (98-107) mmol/L Carbon Dioxide (22-30) mmol/L BUN (9-20) mg/dL Creatinine (0.66-1.25) mg/dL Glucose (74-99) mg/dL POC Glucose (mg/dL) (75-99) mg/dL Calcium (8.4-10.2) mg/dL Phosphorus (2.5-4.5) mg/dL Delta Bilirubin 0.4 H (0.0-0.2) mg/dL AST 181 H (17-59) U/L Creatine Kinase (55-170) U/L Total Protein 4.9 L (6.3-8.2) g/dL Albumin 2.3 L (3.5-5.0) g/dL 11/20/17 11/20/17 11/20/17 Range/Units 04:09 04:12 08:19 RBC (4.30-5.90) m/uL Hgb (13.0-17.5) gm/dL Hct (39.0-53.0) % MCV (80.0-100.0) fL MCH (25.0-35.0) pg MCHC (31.0-37.0) g/dL RDW (11.5-15.5) % Plt Count (150-450) k/uL Lymphocytes # (1.0-4.8) k/uL ABG pH (7.35-7.45) ABG pCO2 (35-45) mmHg ABG pO2 (83-108) mmHg ABG HCO3 (21-25) mmol/L Chloride 110 H (98-107) mmol/L Carbon Dioxide 19 L (22-30) mmol/L BUN 48 H (9-20) mg/dL Creatinine 3.48 H (0.66-1.25) mg/dL Glucose 154 H (74-99) mg/dL POC Glucose (mg/dL) 162 H 186 H (75-99) mg/dL Calcium 7.3 L (8.4-10.2) mg/dL Phosphorus 6.5 H (2.5-4.5) mg/dL Delta Bilirubin (0.0-0.2) mg/dL AST (17-59) U/L Creatine Kinase 79109 H (55-170) U/L Total Protein (6.3-8.2) g/dL Albumin (3.5-5.0) g/dL 11/20/17 Range/Units 12:08 RBC (4.30-5.90) m/uL Hgb (13.0-17.5) gm/dL Hct (39.0-53.0) % MCV (80.0-100.0) fL MCH (25.0-35.0) pg MCHC (31.0-37.0) g/dL RDW (11.5-15.5) % Plt Count (150-450) k/uL Lymphocytes # (1.0-4.8) k/uL ABG pH (7.35-7.45) ABG pCO2 (35-45) mmHg ABG pO2 (83-108) mmHg ABG HCO3 (21-25) mmol/L Chloride (98-107) mmol/L Carbon Dioxide (22-30) mmol/L BUN (9-20) mg/dL Creatinine (0.66-1.25) mg/dL Glucose (74-99) mg/dL POC Glucose (mg/dL) 175 H (75-99) mg/dL Calcium (8.4-10.2) mg/dL Phosphorus (2.5-4.5) mg/dL Delta Bilirubin (0.0-0.2) mg/dL AST (17-59) U/L Creatine Kinase (55-170) U/L Total Protein (6.3-8.2) g/dL Albumin (3.5-5.0) g/dL Microbiology - Last 24 Hours (Table) 11/15/17 11:20 Blood Culture - Preliminary Blood No Growth after 120 hours 11/16/17 08:52 Blood Culture - Preliminary Blood No Growth after 96 hours 11/16/17 08:42 Blood Culture - Preliminary Blood No Growth after 96 hours 11/16/17 17:18 Gram Stain - Final Sputum Sputum Culture - Final Streptococcus pneumoniae Assessment and Plan Plan: Impression: 1. Acute ischemic stroke, left PICA distribution 2. Respiratory failure on mechanical ventilation 3. Acute rhabdomyolysis 4. Renal insufficiency 5. Hypertension 6. Diabetes Recommendation: It does appear patient has suffered an acute ischemic stroke involving the left cerebellum. It is concerning that patient may have had a brainstem infarct. Continue aspirin 300 mg rectally. Patient will need an MRI to confirm this. If patient's status improves and he tolerates weaning off the ventilator, an MRI will be ordered. Staff informs me family is deciding on possible DO NOT RESUSCITATE code. Continue current ICU management. Prognosis is guarded. Continue neurological checks. I will continue to follow with you on an as-needed basis. Feel free to call with any questions or concerns. I performed an examination of the patient and discussed the management with the HOME HEALTH ASSISTANT. I have reviewed the HOME HEALTH ASSISTANT notes and agree with the findings and plan of care.
[2017-11-20 16:12] LABS: Glucose,Whole Blood 195 mg/dL (75-99)
[2017-11-20 19:53] LABS: Glucose,Whole Blood 174 mg/dL (75-99)
[2017-11-20] MEDS: SODIUM CHLORIDE 0.9% 1,000 ML IV SCH (20:39)
--- NOTE | 2017-11-20 22:47 | P.PN ---
Subjective Progress Note Date: 11/20/17 Principal diagnosis: Rhabdomyolysis and acute respiratory failure Patient is a 72-year-old male with a known history of hypertension, diabetes type 2 [id number] came to the hospital with complaints of weakness in his both legs. As per the patient returned has been going on for the past few months which is getting worse for the past 2 weeks. Yesterday he fell on the ground due to he was unable to bear his weight. He fell twice yesterday and once today trying to go to the bathroom. He was on the ground apparently for about 4 hours until his son came in. Otherwise a lemons denied any complaints of chest pain or shortness of breath. No fever no chills. Patient has been having cough congestion and cold as well as a runny nose for the past 2 -3 months as per the patient. Patient denied any alcohol abuse. Patient says that he has been taking his diabetic medications regularly. Otherwise patient is a poor historian. No recent travel or sick contacts at home. Patient lives alone by himself. Chest x-ray showed mild vascular congestion CT head showed no acute intracranial process. Is related chronic small vessel ischemic changes noted. CPK level elevated greater than 2K Troponin slightly elevated. TSH within normal limits UA negative 11/16/2017 Patient became fluid overloaded last night and was transferred to MICU due to acute hypoxic respiratory failure. Currently patient is on mechanical ventilator. Patient is being continued on IV fluids. Cardiology and pulmonary is following. 2-D echo showed normal ejection fraction. BNP is 1050. Troponin is trending down. Heparin has been discontinued. CPK level is still elevated at 7814 11/17/2017 Patient remained on mechanical ventilator. Otherwise chest x-ray showed improved aeration. CPK level is still elevated. Continued on IV fluids. Patient developed fever t today afternoon. Patient was given a dose of vancomycin. No other significant electrolyte abnormalities noted. Discussed with family at bedside. Pulmonary is planning to wean off from the ventilator. 11/18/2017 Patient is currently on mechanical ventilator. Chest x-ray showed persistent airspace opacities of bilateral upper lungs. Currently on antibiotics in the form of vancomycin and Zosyn. Blood pressure is uncontrolled. Urine output is improving otherwise. Patient was placed pressure support and weaning trial was initiated as the patient became extremely tachypneic and tachycardic and unable to follow commands. CT head was ordered. Which showed cerebellar infarct. Neurology has been consulted as well. 11/19/2017 Patient is currently on mechanical ventilator with assist control. Chest x-ray showed upper lobe infiltrates. EEG showed background rhythm slowing consistent with encephalopathy. Otherwise CPK level is still elevated 13,467. Currently on normal saline at 50 mL per hour. On 11/20/2017 Patient remained on mechanical ventilator. Repeat chest x-ray showed no interval change. Convinced have interstitial edema otherwise blood pressure is uncontrolled. Catapres patch was ordered along with IV beta blockers and Nitropaste. Continued on antibiotics in the form of Zosyn. Patient has been afebrile otherwise. CPK level slightly improved. They'll function worsened with creatinine level increased to 3.48. Nephrology was consulted. Patient is on normal saline at 50 mL per hour. Complete review of systems could not be obtained from the patient. Current medications reviewed. Objective - Vital Signs Vital signs: Vital Signs Temp 99.1 F 11/20/17 12:00 Pulse 89 11/20/17 20:00 Resp 28 H 11/20/17 20:00 BP 153/56 11/20/17 19:00 Pulse Ox 91 L 11/20/17 20:00 Intake & Output 11/20/17 11/20/17 11/21/17 06:59 18:59 06:59 Intake Total 0483.887 6803.517 315.451 Output Total 395 315 30 Balance 683.748 822.517 285.451 Weight 68.2 kg Intake: IV 716 472 62 Piperacillin-Tazobactam 3 50 .375 gm In Dextrose/Water 1 50ml.bag @ 12.5 mls/hr IVPB Q8H [facility] Rx#: [id number] Pressure Bag 66 72 12 Sodium Chloride 0.9% 1, 600 400 50 000 ml @ 50 mls/hr IV . Q20H [facility] Rx#:[id number] Intake, IV Titration 312.748 365.517 213.451 Amount Clevidipine Butyrate 25 226.066 96.000 76.066 mg In Empty Bag 1 bag @ 1 MG/HR 2 mls/hr IV .Q24H [facility] Rx#:[id number] Propofol 1,000 mg In 86.682 69.517 87.385 Empty Bag 1 bag @ Titrate IV .Q0M [facility] Rx#: [id number] Sodium Chloride 0.9% 1, 200 50 000 ml @ 50 mls/hr IV . Q20H [facility] Rx#:[id number] Tube Feeding 50 300 40 Output: Urine 395 315 30 Other: Voiding Method Indwelling Catheter Indwelling Catheter Indwelling Catheter ABP, PAP, CO, CI - Last Documented Arterial Blood Pressure 168/53 - Exam PHYSICAL EXAMINATION: Patient is lying in the bed comfortably, no acute distress, currently on mechanical ventilator HEENT: Normocephalic. Neck is supple. Pupils reactive. Nostrils clear. Oral cavity is moist. Ears reveal no drainage. Neck reveals no JVD, carotid bruits, or thyromegaly. CHEST EXAMINATION: Trachea is central. Symmetrical expansion. Lung gregory clear to auscultation and percussion. CARDIAC: Normal S1, S2 with no gallops. No murmurs ABDOMEN: Soft. Bowel sounds normal. No organomegaly. No abdominal bruits. Extremities: reveal no edema. No clubbing or cyanosis Neurologically: patient is sedated and intubated. No focal deficits noted Skin: No rash or skin lesions. Psychiatric: Could not be assessed Musculoskeletal: No joint swelling or deformity. Normal range of motion. - Labs CBC & Chem 7: 11/20/17 04:09 11/20/17 04:09 Labs: Abnormal Lab Results - Last 24 Hours (Table) 11/19/17 11/20/17 11/20/17 Range/Units 23:44 04:02 04:05 RBC (4.30-5.90) m/uL Hgb (13.0-17.5) gm/dL Hct (39.0-53.0) % MCV (80.0-100.0) fL MCH (25.0-35.0) pg MCHC (31.0-37.0) g/dL RDW (11.5-15.5) % Plt Count (150-450) k/uL Lymphocytes # (1.0-4.8) k/uL ABG pH 7.24 L (7.35-7.45) ABG pCO2 46 H (35-45) mmHg ABG pO2 109 H (83-108) mmHg ABG HCO3 19 L (21-25) mmol/L Chloride (98-107) mmol/L Carbon Dioxide (22-30) mmol/L BUN (9-20) mg/dL Creatinine (0.66-1.25) mg/dL Glucose (74-99) mg/dL POC Glucose (mg/dL) 154 H (75-99) mg/dL Calcium (8.4-10.2) mg/dL Phosphorus (2.5-4.5) mg/dL Delta Bilirubin 0.4 H (0.0-0.2) mg/dL AST 181 H (17-59) U/L Creatine Kinase (55-170) U/L Total Protein 4.9 L (6.3-8.2) g/dL Albumin 2.3 L (3.5-5.0) g/dL 11/20/17 11/20/17 11/20/17 Range/Units 04:09 04:09 04:12 RBC 3.30 L (4.30-5.90) m/uL Hgb 7.1 L D (13.0-17.5) gm/dL Hct 24.4 L (39.0-53.0) % MCV 73.8 L (80.0-100.0) fL MCH 21.4 L (25.0-35.0) pg MCHC 29.2 L (31.0-37.0) g/dL RDW 18.9 H (11.5-15.5) % Plt Count 131 L (150-450) k/uL Lymphocytes # 0.8 L (1.0-4.8) k/uL ABG pH (7.35-7.45) ABG pCO2 (35-45) mmHg ABG pO2 (83-108) mmHg ABG HCO3 (21-25) mmol/L Chloride 110 H (98-107) mmol/L Carbon Dioxide 19 L (22-30) mmol/L BUN 48 H (9-20) mg/dL Creatinine 3.48 H (0.66-1.25) mg/dL Glucose 154 H (74-99) mg/dL POC Glucose (mg/dL) 162 H (75-99) mg/dL Calcium 7.3 L (8.4-10.2) mg/dL Phosphorus 6.5 H (2.5-4.5) mg/dL Delta Bilirubin (0.0-0.2) mg/dL AST (17-59) U/L Creatine Kinase 43155 H (55-170) U/L Total Protein (6.3-8.2) g/dL Albumin (3.5-5.0) g/dL 11/20/17 11/20/17 11/20/17 Range/Units 08:19 12:08 16:09 RBC (4.30-5.90) m/uL Hgb (13.0-17.5) gm/dL Hct (39.0-53.0) % MCV (80.0-100.0) fL MCH (25.0-35.0) pg MCHC (31.0-37.0) g/dL RDW (11.5-15.5) % Plt Count (150-450) k/uL Lymphocytes # (1.0-4.8) k/uL ABG pH (7.35-7.45) ABG pCO2 (35-45) mmHg ABG pO2 (83-108) mmHg ABG HCO3 (21-25) mmol/L Chloride (98-107) mmol/L Carbon Dioxide (22-30) mmol/L BUN (9-20) mg/dL Creatinine (0.66-1.25) mg/dL Glucose (74-99) mg/dL POC Glucose (mg/dL) 186 H 175 H 195 H (75-99) mg/dL Calcium (8.4-10.2) mg/dL Phosphorus (2.5-4.5) mg/dL Delta Bilirubin (0.0-0.2) mg/dL AST (17-59) U/L Creatine Kinase (55-170) U/L Total Protein (6.3-8.2) g/dL Albumin (3.5-5.0) g/dL 11/20/17 Range/Units 19:51 RBC (4.30-5.90) m/uL Hgb (13.0-17.5) gm/dL Hct (39.0-53.0) % MCV (80.0-100.0) fL MCH (25.0-35.0) pg MCHC (31.0-37.0) g/dL RDW (11.5-15.5) % Plt Count (150-450) k/uL Lymphocytes # (1.0-4.8) k/uL ABG pH (7.35-7.45) ABG pCO2 (35-45) mmHg ABG pO2 (83-108) mmHg ABG HCO3 (21-25) mmol/L Chloride (98-107) mmol/L Carbon Dioxide (22-30) mmol/L BUN (9-20) mg/dL Creatinine (0.66-1.25) mg/dL Glucose (74-99) mg/dL POC Glucose (mg/dL) 174 H (75-99) mg/dL Calcium (8.4-10.2) mg/dL Phosphorus (2.5-4.5) mg/dL Delta Bilirubin (0.0-0.2) mg/dL AST (17-59) U/L Creatine Kinase (55-170) U/L Total Protein (6.3-8.2) g/dL Albumin (3.5-5.0) g/dL Microbiology - Last 24 Hours (Table) 11/15/17 11:20 Blood Culture - Preliminary Blood No Growth after 120 hours 11/16/17 08:52 Blood Culture - Preliminary Blood No Growth after 96 hours 11/16/17 08:42 Blood Culture - Preliminary Blood No Growth after 96 hours 11/16/17 17:18 Gram Stain - Final Sputum Sputum Culture - Final Streptococcus pneumoniae Assessment and Plan Assessment: Acute ischemic stroke involving left PICA distribution encephalopathy likely metabolic versus CVA Acute hypoxic respiratory failure likely due to fluid overload. Patient still having bilateral upper lobe persistent of bases Hypertensive urgency Status post fall due to bilateral lower admitted weakness. CT head negative for any acute CVA Severe rhabdomyolysis Elevated troponin level. Likely due to rhabdo and unlikely NSTEMI. DC'd heparin Hypertension uncontrolled Diabetes type 2 [id number]. Uncontrolled his B A1c 8.8 Microcytic anemia. Rule out iron deficiency Acute kidney injury. Likely prerenal. Possible ATN DVT prophylaxis. Plan: Patient will be continued on mechanical ventilator and also on IV fluids. Follow-up CPK level. 2-D echo showed normal ejection fraction. Cardiology and pulmonary is following. Neurology has been consulted. Repeat CT showed new area of decreased attenuation of the left cerebellar inferior. EEG consistent with encephalopathy. Otherwise continue the current management. Further recommendations based on the clinical course. Prognosis is guarded with multiple medical problems and comorbid conditions. Discussed with his daughter and son at bedside in detail. Time with Patient: Greater than 30
[2017-11-21 00:09] LABS: Glucose,Whole Blood 132 mg/dL (75-99)
[2017-11-21] MEDS: INSULIN ASPART 100 UNIT/ML 1 ML 10 ML VIAL SQ SCH ×5 (00:10→16:27)
[2017-11-21] MEDS: METOPROLOL TARTRATE 5 MG/5 ML VIAL IVP PRN (00:23)
[2017-11-21] MEDS: PROPOFOL 1,000 MG in EMPTY BAG 1 BAG IV SCH ×3 (00:44→22:14)
[2017-11-21] MEDS ORDERED: FUROSEMIDE 10 MG/ML 10 ML VIAL IV STA (01:59)
[2017-11-21] MEDS: HYDROmorphone 2 MG/ML 1 ML SYRINGE IVP PRN ×4 (02:10→19:45)
[2017-11-21] MEDS: CLEVIDIPINE BUTYRATE 25 MG in EMPTY BAG 1 BAG IV SCH ×4 (02:14→20:34)
[2017-11-21] MEDS: IPRATROPIUM-ALBUTEROL 3 ML NEB INHALATION SCH ×6 (02:50→23:57)
[2017-11-21 04:19] LABS: Glucose,Whole Blood 190 mg/dL (75-99)
[2017-11-21 04:55] LABS: Anisocytosis Slight; HCT 25.1 % (39.0-53.0); Hypochromasia Marked; MCV 77.5 fL (80.0-100.0); Microcytosis Slight; Platelet Count 203 k/uL (150-450); RBC 3.24 m/uL (4.30-5.90); RDW 18.3 % (11.5-15.5)
[2017-11-21 05:00] LABS: ABG Base Excess -11.3 mmol/L; ABG HCO3 16 mmol/L (21-25); ABG PCO2 52 mmHg (35-45); ABG PH 7.13 (7.35-7.45); ABG PO2 76 mmHg (83-108); ABG TCO2 18 mmol/L (19-24)
[2017-11-21 05:02] LABS: HGB 7.1 gm/dL (13.0-17.5)
[2017-11-21 05:03] LABS: MCH 21.8 pg (25.0-35.0); MCHC 28.4 g/dL (31.0-37.0)
[2017-11-21 05:11] LABS: Potassium 5.6 mmol/L (3.5-5.1)
[2017-11-21 05:29] LABS: Band Neutrophils % 9 %; Lymphocytes # (M) 0.39 k/uL (1.0-4.8); Monocytes # (M) 0.33 k/uL (0-1.0); Neutrophils % (M) 80 %; Nucleated Red Blood Cells 1 /100 WBC (0-0); Total Cells Counted 200; WBC 6.5 k/uL (3.8-10.6)
[2017-11-21 05:30] LABS: Toxic Vacuolation Present
[2017-11-21 06:01] LABS: Calcium 7.2 mg/dL (8.4-10.2)
[2017-11-21 06:02] LABS: Albumin 2.4 g/dL (3.5-5.0); Magnesium 2.5 mg/dL (1.6-2.3); Total Bilirubin 0.6 mg/dL (0.2-1.3); Total Protein 5.1 g/dL (6.3-8.2)
[2017-11-21] MEDS ORDERED: DEXTROSE 5%-0.9% NACL 1,000 ML IV SCH (06:15)
[2017-11-21] MEDS ORDERED: SODIUM CHLORIDE 0.9% 1,000 ML IV SCH (06:30)
[2017-11-21] MEDS ORDERED: DEXTROSE 5% IN WATER 1,000 ML with SODIUM BICARB (1 MEQ/ML) 100 ML IV SCH (07:00)
--- NOTE | 2017-11-21 07:07 | XR ---
EXAMINATION TYPE: XR chest 1V portable DATE OF EXAM: 11/21/2017 HISTORY: Tube placement. REFERENCE: Previous study dated 11/20/2017. FINDINGS: The patient is ET tube and NG tube remain in place, unchanged in appearance. There is a lef t internal jugular catheter in place. Its tip is in the right atrium. There is biapical consolidation. This is essentially unchanged from previous. Heart size upper limits of normal. Pleural spaces are clear IMPRESSION: NO SIGNIFICANT INTERVAL CHANGE IN THE APPEARANCE OF THE CHEST.
[2017-11-21 08:29] LABS: Glucose,Whole Blood 182 mg/dL (75-99)
[2017-11-21] MEDS: METOPROLOL TARTRATE 50 MG TAB PO SCH (09:24)
[2017-11-21] MEDS: CHLORHEXIDINE GLUCONATE 15 ML CUP MUCOUS MEM SCH ×2 (09:24→20:35)
[2017-11-21] MEDS: ASPIRIN 300 MG SUPP RECTAL SCH (09:24)
[2017-11-21] MEDS: PANTOPRAZOLE 40 MG/10 ML VIAL IVP SCH (09:24)
[2017-11-21] MEDS: NITROGLYCERIN OINT 1 INCH/GM PACKET TOPICAL SCH ×2 (09:27→16:47)
[2017-11-21] MEDS: PIPERACILLIN-TAZOBACTAM 3.375 GM in DEXTROSE/WATER 1 50ML.BAG IVPB SCH ×2 (09:27→20:34)
[2017-11-21] MEDS: DEXTROSE 5% IN WATER 1,000 ML with SODIUM BICARB (1 MEQ/ML) 150 ML IV SCH ×2 (09:28→22:13)
--- NOTE | 2017-11-21 11:44 | XR ---
EXAMINATION TYPE: XR abdomen 1V , ONE VIEW DATE OF EXAM ORDERED: 11/21/2017 HISTORY: distention. COMPARISON: None. FINDINGS: The lung bases are clear. There is an NG tube in place. Its tip is within the stomach. The abdominal gas pattern is normal. There is no evidence of obstruction or free air. There are phleb oliths within the pelvis. IMPRESSION: NO ACUTE INTRA-ABDOMINAL ABNORMALITY.
[2017-11-21] MEDS ORDERED: cloNIDine 0.2 MG/24HR PATCH 1 PATCH PATCH TRANSDERM SCH (12:00)
[2017-11-21] MEDS ORDERED: FUROSEMIDE 250 MG in SODIUM CHLORIDE 0.9% 225 ML IVP SCH (12:00)
--- NOTE | 2017-11-21 12:06 | P.PN ---
Subjective Progress Note Date: 11/21/17 Principal diagnosis: Multiorgan system failure Progress note dated 11/21/2017 This is a 72-year-old black male, with hypoxemic respiratory Failure secondary to fluid overload. The patient has developed multiorgan system failure with new onset renal failure. His cultures are positive for Streptococcus pneumoniae and he remains on antibiotic for that. In addition, the patient appears to have sustained a cerebellar hemisphere infarct, which likely expected explains his mental status changes. 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 We've had ongoing discussions with the daughter who apparently is a nurse. Today she finally made the patient a DO NOT RESUSCITATE. The patient has not had any improvement in his mental status. I did discuss dialysis today as his worsening renal dysfunction is causing fluid overload and retention. Apparently no decision has been made about that yet. He was placed on a bicarb drip and will place on a Lasix drip to improve urine output. Again overall prognosis remains very poor and his neurologic status has not changed during his whole hospitalization here. Objective - Vital Signs Vital signs: Vital Signs Temp 97.4 F L 11/21/17 08:00 Pulse 84 11/21/17 11:30 Resp 33 H 11/21/17 11:30 BP 129/46 11/21/17 10:00 Pulse Ox 94 L 11/21/17 11:30 Intake & Output 11/20/17 11/21/17 11/21/17 18:59 06:59 18:59 Intake Total 4948.336 1108.810 526.107 Output Total 315 130 10 Balance 973.884 2423.810 516.107 Weight 70.4 kg Intake: IV 472 672 392.5 D5W hco3 300 Piperacillin-Tazobactam 3 50 12.5 .375 gm In Dextrose/Water 1 50ml.bag @ 12.5 mls/hr IVPB Q8H [facility] Rx#: [id number] Pressure Bag 72 72 30 Sodium Chloride 0.9% 1, 400 550 50 000 ml @ 50 mls/hr IV . Q20H [facility] Rx#:[id number] Intake, IV Titration 365.517 513.810 93.607 Amount Clevidipine Butyrate 25 96.000 196.433 50.000 mg In Empty Bag 1 bag @ 1 MG/HR 2 mls/hr IV .Q24H [facility] Rx#:[id number] Propofol 1,000 mg In 69.517 267.377 43.607 Empty Bag 1 bag @ Titrate IV .Q0M [facility] Rx#: [id number] Sodium Chloride 0.9% 1, 200 50 000 ml @ 50 mls/hr IV . Q20H [facility] Rx#:[id number] Tube Feeding 300 60 40 Output: Urine 315 130 10 Other: Voiding Method Indwelling Catheter Indwelling Catheter ABP, PAP, CO, CI - Last Documented Arterial Blood Pressure 172/53 - Exam The patient is unresponsive. His neurologic status has not changed. He remains on the ventilator. NG tube and endotracheal tube noted. HEENT examination is grossly unremarkable save for pinpoint pupils. Pupillary response is very sluggish. Neck supple. Full range of motion. No adenopathy thyromegaly or neck vein distention. Cardiovascular examination reveals a irregular rhythm and rate. Heart rate is about 90 bpm. He is clearly in atrial fibrillation. Lungs reveal diminished breath sounds throughout. Bilateral rhonchi. No wheezes. Breath sounds are diminished. A few crackles are appreciated. Abdomen soft bowel sounds are heard. No masses or tenderness. Extremities are intact. No cyanosis clubbing or edema. Skin is without rash or lesion. Neurologic examination cannot be adequately evaluated. - Labs CBC & Chem 7: 11/21/17 04:50 11/21/17 04:50 Labs: Abnormal Lab Results - Last 24 Hours (Table) 11/20/17 11/20/17 11/20/17 Range/Units 12:08 16:09 19:51 RBC (4.30-5.90) m/uL Hgb (13.0-17.5) gm/dL Hct (39.0-53.0) % MCV (80.0-100.0) fL MCH (25.0-35.0) pg MCHC (31.0-37.0) g/dL RDW (11.5-15.5) % Lymphocytes # (Manual) (1.0-4.8) k/uL Nucleated RBCs (0-0) /100 WBC ABG pH (7.35-7.45) ABG pCO2 (35-45) mmHg ABG pO2 (83-108) mmHg ABG HCO3 (21-25) mmol/L ABG Total CO2 (19-24) mmol/L ABG O2 Saturation (94-97) % Potassium (3.5-5.1) mmol/L Chloride (98-107) mmol/L Carbon Dioxide (22-30) mmol/L BUN (9-20) mg/dL Creatinine (0.66-1.25) mg/dL Glucose (74-99) mg/dL POC Glucose (mg/dL) 175 H 195 H 174 H (75-99) mg/dL Calcium (8.4-10.2) mg/dL Phosphorus (2.5-4.5) mg/dL Magnesium (1.6-2.3) mg/dL AST (17-59) U/L Creatine Kinase (55-170) U/L Total Protein (6.3-8.2) g/dL Albumin (3.5-5.0) g/dL 11/21/17 11/21/17 11/21/17 Range/Units 00:07 04:18 04:39 RBC (4.30-5.90) m/uL Hgb (13.0-17.5) gm/dL Hct (39.0-53.0) % MCV (80.0-100.0) fL MCH (25.0-35.0) pg MCHC (31.0-37.0) g/dL RDW (11.5-15.5) % Lymphocytes # (Manual) (1.0-4.8) k/uL Nucleated RBCs (0-0) /100 WBC ABG pH 7.13 L* (7.35-7.45) ABG pCO2 52 H (35-45) mmHg ABG pO2 76 L (83-108) mmHg ABG HCO3 16 L (21-25) mmol/L ABG Total CO2 18 L (19-24) mmol/L ABG O2 Saturation 90.0 L (94-97) % Potassium (3.5-5.1) mmol/L Chloride (98-107) mmol/L Carbon Dioxide (22-30) mmol/L BUN (9-20) mg/dL Creatinine (0.66-1.25) mg/dL Glucose (74-99) mg/dL POC Glucose (mg/dL) 132 H 190 H (75-99) mg/dL Calcium (8.4-10.2) mg/dL Phosphorus (2.5-4.5) mg/dL Magnesium (1.6-2.3) mg/dL AST (17-59) U/L Creatine Kinase (55-170) U/L Total Protein (6.3-8.2) g/dL Albumin (3.5-5.0) g/dL 11/21/17 11/21/17 11/21/17 Range/Units 04:50 04:50 08:27 RBC 3.24 L (4.30-5.90) m/uL Hgb 7.1 L (13.0-17.5) gm/dL Hct 25.1 L (39.0-53.0) % MCV 77.5 L (80.0-100.0) fL MCH 21.8 L (25.0-35.0) pg MCHC 28.4 L (31.0-37.0) g/dL RDW 18.3 H (11.5-15.5) % Lymphocytes # (Manual) 0.39 L (1.0-4.8) k/uL Nucleated RBCs 1 H (0-0) /100 WBC ABG pH (7.35-7.45) ABG pCO2 (35-45) mmHg ABG pO2 (83-108) mmHg ABG HCO3 (21-25) mmol/L ABG Total CO2 (19-24) mmol/L ABG O2 Saturation (94-97) % Potassium 5.6 H (3.5-5.1) mmol/L Chloride 108 H (98-107) mmol/L Carbon Dioxide 14 L (22-30) mmol/L BUN 57 H (9-20) mg/dL Creatinine 5.20 H* (0.66-1.25) mg/dL Glucose 175 H (74-99) mg/dL POC Glucose (mg/dL) 182 H (75-99) mg/dL Calcium 7.2 L (8.4-10.2) mg/dL Phosphorus 10.0 H* (2.5-4.5) mg/dL Magnesium 2.5 H (1.6-2.3) mg/dL AST 142 H (17-59) U/L Creatine Kinase 7104 H (55-170) U/L Total Protein 5.1 L (6.3-8.2) g/dL Albumin 2.4 L (3.5-5.0) g/dL Microbiology - Last 24 Hours (Table) 11/16/17 08:52 Blood Culture - Preliminary Blood No Growth after 120 hours 11/16/17 08:42 Blood Culture - Preliminary Blood No Growth after 120 hours 11/15/17 11:20 Blood Culture - Preliminary Blood No Growth after 120 hours 11/16/17 17:18 Gram Stain - Final Sputum Sputum Culture - Final Streptococcus pneumoniae Assessment and Plan Assessment: Assessment Acute hypoxemic respiratory failure secondary to fluid overload in part related to kidney injury with rhabdomyolysis Respiratory failure requiring intubation and mechanical ventilation. Encephalopathy likely metabolic New-onset left cerebellar hemispheric CVA. Acute kidney injury Rhabdomyolysis Possible non-ST segment elevation myocardial infarction Diabetes mellitus Microcytic anemia Hypertension Chronic alcohol abuse Thrombocytopenia Atrial fibrillation with controlled ventricular response (1) Fluid overload Current Visit: Yes Status: Acute Code(s): E87.70 - FLUID OVERLOAD, UNSPECIFIED SNOMED Code(s): 78592888 (2) Acute kidney injury Current Visit: Yes Status: Acute Code(s): N17.9 - ACUTE KIDNEY FAILURE, UNSPECIFIED SNOMED Code(s): 47750630 (3) Anemia Current Visit: Yes Status: Acute Code(s): D64.9 - ANEMIA, UNSPECIFIED SNOMED Code(s): 984733080 (4) Diabetes Current Visit: Yes Status: Acute Code(s): E11.9 - TYPE 2 DIABETES MELLITUS WITHOUT COMPLICATIONS SNOMED Code(s): 03758405 (5) Hypertension Current Visit: Yes Status: Acute Code(s): I10 - ESSENTIAL (PRIMARY) HYPERTENSION SNOMED Code(s): 38351625 (6) Lower extremity weakness Current Visit: Yes Status: Acute Code(s): R29.898 - OTH SYMPTOMS AND SIGNS INVOLVING THE MUSCULOSKELETAL SYSTEM SNOMED Code(s): 718634458 (7) Renal insufficiency Current Visit: Yes Status: Acute Code(s): N28.9 - DISORDER OF KIDNEY AND URETER, UNSPECIFIED SNOMED Code(s): 286425187 (8) Rhabdomyolysis Current Visit: Yes Status: Acute Code(s): M62.82 - RHABDOMYOLYSIS SNOMED Code(s): 914021081 Plan: Plan dated 11/16/2017 The patient will remain on the ventilator. Vent settings have been adjusted accordingly. We'll make sure the patient is on GI and DVT prophylaxis. We'll get nutrition started right away. The FiO2 was dropped from 100 to 50%. Additional recommendations and suggestions are forthcoming. Endotracheal tube was put pulled back 2 cm. Nephrology consultation. The patient be started on enteral nutrition. Labs x-rays a medications are all reviewed. Plan dated 11/21/2017 The patient is a DO NOT RESUSCITATE. The patient's vent settings include the assist control mode rate of 28 tidal volume 400 FiO2 of 60% PEEP of 5. Arterial blood gases show a PaO2 of 76 a PaCO2 of 52 and a pH is 7.13. The patient's central venous pressure is 20 cm of water. Chest x-rays consistent with fluid overload. The patient's IV is D5W with 3 A of sodium bicarb at 75 mL an hour, Cleveprex at 4 mg an hour, and vital high protein with a rate of 20 and a goal of 20 mL/h. The patient will be given a Lasix drip at 10 mg an hour and be maintained on a bicarbonate drip. A repeat gas will be done. The patient is now a DO NOT RESUSCITATE according to the daughter. The patient will go for a follow-up computed tomography scan of the brain without contrast. He likely will start the patient on IV heparin if there is no bleeding in the brain or the infarct has not extended. Time with Patient: Greater than 30
[2017-11-21 12:20] LABS: Potassium 6.1 mmol/L (3.5-5.1)
--- NOTE | 2017-11-21 12:35 | CT ---
EXAMINATION TYPE: CT brain wo con DATE OF EXAM: 11/21/2017 COMPARISON: Previous study dated 11/18/2017 HISTORY: Stroke CT DLP: 969.3 mGycm Automated exposure control for dose reduction was used. FINDINGS: There is decreased attenuation in the left cerebellar hemisphere and also in the left occipital lobe. Occipital lobe lesion is more apparent than on the previous exam. There is also an irregular area of decreased attenuation in the right cerebellar hemisphere which was not present with certainty on the previous study. There is evidence of an old infarct in the santos radiata on the left. This is uncha nged. There is no mass effect, midline shift or intracranial blood. There is an air-fluid level in the left maxillary sinus and in both sphenoid sinuses. There is chroni c mucoperiosteal thickening involving the ethmoid sinuses. IMPRESSION: 1. EVOLVING BILATERAL CEREBELLAR INFARCT WELL A LEFT OCCIPITAL INFARCT INDICATING OF VERTEBROBA SILAR DISTRIBUTION. 2. OLD INFARCT IN THE LEFT SANTOS RADIATA. 3. NO EVIDENCE OF HEMORRHAGIC TRANSFORMATION.
[2017-11-21 12:56] LABS: Albumin 2.5 g/dL (3.5-5.0); Calcium 7.4 mg/dL (8.4-10.2); Total Bilirubin 0.8 mg/dL (0.2-1.3); Total Protein 5.2 g/dL (6.3-8.2)
[2017-11-21] MEDS ORDERED: HEPARIN SODIUM,PORCINE 5,000 UNIT/ML 1 ML VIAL IV PRN (13:20)
[2017-11-21 13:27] LABS: Glucose,Whole Blood 306 mg/dL (75-99)
[2017-11-21] MEDS: CALCIUM ACETATE 667 MG CAP PO SCH ×2 (13:27→16:47)
--- NOTE | 2017-11-21 13:47 | CONS ---
CONSULTATION REASON FOR CONSULT: Renal failure. HISTORY OF PRESENT ILLNESS: The patient is a 72-year-old male who was admitted to the hospital initially on November 15 with weakness and rhabdomyolysis. His serum creatinine was 1.5. It did go down to 1.2 the next day. Since then, it has been climbing. It went up to 1.8 and then 3.4 yesterday and today it is at 5.2. Currently patient has no significant urine output. He is on the vent for respiratory failure. He was also found to have an acute stroke. Currently patient is off of sedation and he has hardly any response to deep painful stimuli. His blood pressure has been running high for which he is maintained on Cleviprex drips, metoprolol and clonidine. EEG done shows moderate encephalopathy. Repeat CT scan showed hypodensity in the left cerebellum. PAST MEDICAL HISTORY: Hypertension, diabetes. SOCIAL HISTORY: Positive for smoking. No history of drug abuse or alcohol abuse. HOME MEDICATIONS: Included Zestril, Glucophage, Lopressor. ALLERGIES: None. EXAMINATION: Currently patient is intubated. He is on the vent. He is not responsive to painful stimuli. He is maintained on FIO2 at 60%. Blood pressure is 129/46, heart rate 68 per minute. He is afebrile. Examination of the heart: S1, S2. Examination lungs: Bilateral breath sounds are heard. Abdomen is soft, nontender. Examination lower extremity shows no significant edema. The patient is not moving his extremities. LAB: Show sodium 139, potassium 5.6, chloride 108, CO2 is 14, BUN 57, serum creatinine 5.2, phosphorus was 10.0, albumin 2.4, magnesium was 2.5. ASSESSMENT: 1. Acute kidney injury, currently oligoanuric acute tubular necrosis. No evidence of obstruction. The patient has an indwelling Cuevas catheter. We will obtain an ultrasound of the kidneys. The renal replacement therapy was discussed with the daughter. Given his underlying stroke and very poor brain function and response at this time, I am not sure if dialysis would be a suitable option. Definitely the renal failure is contributing to some degree of encephalopathy. However, since it is so acute, I doubt that dialysis would change his overall mental condition significantly. 2. Vent dependent respiratory failure. 3. Hyperkalemia associated with acute kidney injury and acidosis. 4. Severe metabolic acidosis with an anion gap, maintained on IV bicarb. 5. Hyperphosphatemia secondary to renal failure. 6. Cerebellar stroke. 7. Anemia. No active bleeding noted. PLAN: Check ultrasound of the kidneys. Start Lasix drip, then continue the IV bicarb and again renal replacement therapy was discussed with the patient's daughter. I doubt that it will change his underlying mental status significantly given the fact that it is fairly acute renal failure. Overall prognosis is guarded. Thank you for this consultation. We will continue to follow the patient with you during his hospitalization. MMODL / IJN: [id number] /
[2017-11-21] MEDS ORDERED: HEPARIN SOD,PORK IN 0.45% NACL 25,000 UNIT in 0.45% NACL 1 500ML.BAG IV SCH (14:00)
--- NOTE | 2017-11-21 14:25 | P.PN ---
Subjective Patient's blood pressure is still elevated. He still intubated and had a weaning trial but did not perform well. He is also in atrial fibrillation with heart rates in the 90s and is probably resulted in CVA On examination his blood pressure is elevated between 180-200 mmHg, heart rate in the 90s in atrial fibrillation now he is awaiting a CT of the brain before starting anticoagulation Breath sounds are reduced bilaterally equal heart sounds S1 and S2 are soft abdomen is soft extremities warm no edema Impression Hypertension CVA Acute respiratory failure Intubated at this time Suggest Increase oral/NG beta blockers Increase clonidine patch dose, Discussed with numbness Objective - Vital Signs Vital signs: Vital Signs Temp 97.8 F 11/21/17 13:00 Pulse 71 11/21/17 13:03 Resp 27 H 11/21/17 13:00 BP 129/46 11/21/17 10:00 Pulse Ox 94 L 11/21/17 13:00 Intake & Output 11/20/17 11/21/17 11/21/17 18:59 06:59 18:59 Intake Total 5899.356 5078.810 688.107 Output Total 571 457 5199 Balance 681.407 5099.810 -331.893 Weight 70.4 kg Intake: IV 472 672 554.5 D5W hco3 450 Piperacillin-Tazobactam 3 50 12.5 .375 gm In Dextrose/Water 1 50ml.bag @ 12.5 mls/hr IVPB Q8H [facility] Rx#: [id number] Pressure Bag 72 72 42 Sodium Chloride 0.9% 1, 400 550 50 000 ml @ 50 mls/hr IV . Q20H [facility] Rx#:[id number] Intake, IV Titration 365.517 513.810 93.607 Amount Clevidipine Butyrate 25 96.000 196.433 50.000 mg In Empty Bag 1 bag @ 1 MG/HR 2 mls/hr IV .Q24H [facility] Rx#:[id number] Propofol 1,000 mg In 69.517 267.377 43.607 Empty Bag 1 bag @ Titrate IV .Q0M [facility] Rx#: [id number] Sodium Chloride 0.9% 1, 200 50 000 ml @ 50 mls/hr IV . Q20H [facility] Rx#:[id number] Tube Feeding 300 60 40 Output: Urine 315 130 20 Emesis 1000 Other: Voiding Method Indwelling Catheter Indwelling Catheter ABP, PAP, CO, CI - Last Documented Arterial Blood Pressure 152/49 - Labs CBC & Chem 7: 11/21/17 04:50 11/21/17 11:40 Labs: Abnormal Lab Results - Last 24 Hours (Table) 11/20/17 11/20/17 11/21/17 Range/Units 16:09 19:51 00:07 RBC (4.30-5.90) m/uL Hgb (13.0-17.5) gm/dL Hct (39.0-53.0) % MCV (80.0-100.0) fL MCH (25.0-35.0) pg MCHC (31.0-37.0) g/dL RDW (11.5-15.5) % Lymphocytes # (Manual) (1.0-4.8) k/uL Nucleated RBCs (0-0) /100 WBC ABG pH (7.35-7.45) ABG pCO2 (35-45) mmHg ABG pO2 (83-108) mmHg ABG HCO3 (21-25) mmol/L ABG Total CO2 (19-24) mmol/L ABG O2 Saturation (94-97) % Potassium (3.5-5.1) mmol/L Chloride (98-107) mmol/L Carbon Dioxide (22-30) mmol/L BUN (9-20) mg/dL Creatinine (0.66-1.25) mg/dL Glucose (74-99) mg/dL POC Glucose (mg/dL) 195 H 174 H 132 H (75-99) mg/dL Calcium (8.4-10.2) mg/dL Phosphorus (2.5-4.5) mg/dL Magnesium (1.6-2.3) mg/dL AST (17-59) U/L Creatine Kinase (55-170) U/L Total Protein (6.3-8.2) g/dL Albumin (3.5-5.0) g/dL 11/21/17 11/21/17 11/21/17 Range/Units 04:18 04:39 04:50 RBC 3.24 L (4.30-5.90) m/uL Hgb 7.1 L (13.0-17.5) gm/dL Hct 25.1 L (39.0-53.0) % MCV 77.5 L (80.0-100.0) fL MCH 21.8 L (25.0-35.0) pg MCHC 28.4 L (31.0-37.0) g/dL RDW 18.3 H (11.5-15.5) % Lymphocytes # (Manual) 0.39 L (1.0-4.8) k/uL Nucleated RBCs 1 H (0-0) /100 WBC ABG pH 7.13 L* (7.35-7.45) ABG pCO2 52 H (35-45) mmHg ABG pO2 76 L (83-108) mmHg ABG HCO3 16 L (21-25) mmol/L ABG Total CO2 18 L (19-24) mmol/L ABG O2 Saturation 90.0 L (94-97) % Potassium (3.5-5.1) mmol/L Chloride (98-107) mmol/L Carbon Dioxide (22-30) mmol/L BUN (9-20) mg/dL Creatinine (0.66-1.25) mg/dL Glucose (74-99) mg/dL POC Glucose (mg/dL) 190 H (75-99) mg/dL Calcium (8.4-10.2) mg/dL Phosphorus (2.5-4.5) mg/dL Magnesium (1.6-2.3) mg/dL AST (17-59) U/L Creatine Kinase (55-170) U/L Total Protein (6.3-8.2) g/dL Albumin (3.5-5.0) g/dL 11/21/17 11/21/17 11/21/17 Range/Units 04:50 08:27 11:40 RBC (4.30-5.90) m/uL Hgb (13.0-17.5) gm/dL Hct (39.0-53.0) % MCV (80.0-100.0) fL MCH (25.0-35.0) pg MCHC (31.0-37.0) g/dL RDW (11.5-15.5) % Lymphocytes # (Manual) (1.0-4.8) k/uL Nucleated RBCs (0-0) /100 WBC ABG pH (7.35-7.45) ABG pCO2 (35-45) mmHg ABG pO2 (83-108) mmHg ABG HCO3 (21-25) mmol/L ABG Total CO2 (19-24) mmol/L ABG O2 Saturation (94-97) % Potassium 5.6 H 6.1 H (3.5-5.1) mmol/L Chloride 108 H (98-107) mmol/L Carbon Dioxide 14 L 14 L (22-30) mmol/L BUN 57 H 59 H (9-20) mg/dL Creatinine 5.20 H* 5.27 H* (0.66-1.25) mg/dL Glucose 175 H 261 H (74-99) mg/dL POC Glucose (mg/dL) 182 H (75-99) mg/dL Calcium 7.2 L 7.4 L (8.4-10.2) mg/dL Phosphorus 10.0 H* (2.5-4.5) mg/dL Magnesium 2.5 H (1.6-2.3) mg/dL AST 142 H 146 H (17-59) U/L Creatine Kinase 7104 H (55-170) U/L Total Protein 5.1 L 5.2 L (6.3-8.2) g/dL Albumin 2.4 L 2.5 L (3.5-5.0) g/dL 11/21/17 Range/Units 13:24 RBC (4.30-5.90) m/uL Hgb (13.0-17.5) gm/dL Hct (39.0-53.0) % MCV (80.0-100.0) fL MCH (25.0-35.0) pg MCHC (31.0-37.0) g/dL RDW (11.5-15.5) % Lymphocytes # (Manual) (1.0-4.8) k/uL Nucleated RBCs (0-0) /100 WBC ABG pH (7.35-7.45) ABG pCO2 (35-45) mmHg ABG pO2 (83-108) mmHg ABG HCO3 (21-25) mmol/L ABG Total CO2 (19-24) mmol/L ABG O2 Saturation (94-97) % Potassium (3.5-5.1) mmol/L Chloride (98-107) mmol/L Carbon Dioxide (22-30) mmol/L BUN (9-20) mg/dL Creatinine (0.66-1.25) mg/dL Glucose (74-99) mg/dL POC Glucose (mg/dL) 306 H (75-99) mg/dL Calcium (8.4-10.2) mg/dL Phosphorus (2.5-4.5) mg/dL Magnesium (1.6-2.3) mg/dL AST (17-59) U/L Creatine Kinase (55-170) U/L Total Protein (6.3-8.2) g/dL Albumin (3.5-5.0) g/dL Microbiology - Last 24 Hours (Table) 11/15/17 11:20 Blood Culture - Final Blood No Growth after 144 hours 11/16/17 08:52 Blood Culture - Preliminary Blood No Growth after 120 hours 11/16/17 08:42 Blood Culture - Preliminary Blood No Growth after 120 hours 11/16/17 17:18 Gram Stain - Final Sputum Sputum Culture - Final Streptococcus pneumoniae
--- NOTE | 2017-11-21 14:41 | US ---
EXAMINATION TYPE: US kidneys/renal and bladder DATE OF EXAM: 11/21/2017 COMPARISON: NONE CLINICAL HISTORY: renal failure; ICU patient with weakness, rhabdomyolysis, renal insufficiency; exam is technically limited as performed at bedside and patient is intubated. EXAM MEASUREMENTS: Right Kidney: 10.7 x 5.5 x 4.5 cm Left Kidney: 10.8 x 6.0 x 6.3 cm Post Void Residual Volume: NA as Cuevas catheter is present in bladder Right Kidney: upper cortical cyst = 0.8 x 1.0 x 0.9cm, mild hydronephrosis is noted. No contour defor brien mass is identified. Left Kidney: No hydronephrosis or masses seen, some rib shadowing is obscuring inferior pole. The lef t kidney appears to be somewhat hyperechoic compared to normal kidney. Bladder: Cuevas Catheter in noted internally IMPRESSION: 1. Suboptimal examination, Mild hydronephrosis is identified in the left kidney and it appears to be somewhat hyperechoic. This could be due to medical renal disease.
[2017-11-21] MEDS ORDERED: SODIUM BICARB 8.4% 50 ML SYR (1 MEQ/ML) IV STA (15:48)
[2017-11-21] MEDS ORDERED: INSULIN REGULAR BOLUS (FROM DRIP BAG) IV PRN (15:49)
[2017-11-21] MEDS ORDERED: INSULIN REGULAR 100 UNIT in SODIUM CHLORIDE 0.9% 100 ML IV SCH (16:00)
[2017-11-21 16:25] LABS: Glucose,Whole Blood 313 mg/dL (75-99)
[2017-11-21 17:00] LABS: Glucose,Whole Blood 304 mg/dL (75-99)
[2017-11-21 18:07] LABS: Glucose,Whole Blood 296 mg/dL (75-99)
[2017-11-21 18:10] VITALS: RESP 28
[2017-11-21 19:11] LABS: Glucose,Whole Blood 255 mg/dL (75-99)
[2017-11-21 20:17] LABS: Glucose,Whole Blood 252 mg/dL (75-99)
[2017-11-21 20:24] LABS: Potassium 4.9 mmol/L (3.5-5.1)
[2017-11-21] MEDS ORDERED: METOPROLOL TARTRATE 50 MG TAB PO SCH (21:00)
[2017-11-21 21:02] LABS: Phosphorus 11.1 mg/dL (2.5-4.5)
[2017-11-21 21:03] LABS: Calcium 6.8 mg/dL (8.4-10.2); Magnesium 2.6 mg/dL (1.6-2.3)
[2017-11-21 21:20] LABS: Glucose,Whole Blood 228 mg/dL (75-99)
[2017-11-21 22:11] LABS: Glucose,Whole Blood 223 mg/dL (75-99)
[2017-11-21] MEDS ORDERED: NOREPINEPHRIN 16 MG-0.9%NS PMX 16 MG/250 ML ML IV SCH (22:45)
[2017-11-21 23:04] VITALS: BP 103/46
[2017-11-21 23:09] LABS: Glucose,Whole Blood 217 mg/dL (75-99)
[2017-11-22] MEDS ORDERED: ATROPINE SULFATE 0.1 MG/ML 10ML SYRINGE ONE (00:02)
[2017-11-22] MEDS: NITROGLYCERIN OINT 1 INCH/GM PACKET TOPICAL SCH (00:08)
[2017-11-22 00:13] LABS: Glucose,Whole Blood 181 mg/dL (75-99)
[2017-11-22 00:19] VITALS: TEMP 98.9
[2017-11-22 01:16] LABS: Glucose,Whole Blood 173 mg/dL (75-99)
--- NOTE | 2017-11-22 01:52 | P.PN ---
Subjective Progress Note Date: 11/21/17 Principal diagnosis: Rhabdomyolysis and acute respiratory failure Patient is a 72-year-old male with a known history of hypertension, diabetes type 2 [id number] came to the hospital with complaints of weakness in his both legs. As per the patient returned has been going on for the past few months which is getting worse for the past 2 weeks. Yesterday he fell on the ground due to he was unable to bear his weight. He fell twice yesterday and once today trying to go to the bathroom. He was on the ground apparently for about 4 hours until his son came in. Otherwise a lemons denied any complaints of chest pain or shortness of breath. No fever no chills. Patient has been having cough congestion and cold as well as a runny nose for the past 2 -3 months as per the patient. Patient denied any alcohol abuse. Patient says that he has been taking his diabetic medications regularly. Otherwise patient is a poor historian. No recent travel or sick contacts at home. Patient lives alone by himself. Chest x-ray showed mild vascular congestion CT head showed no acute intracranial process. Is related chronic small vessel ischemic changes noted. CPK level elevated greater than 2K Troponin slightly elevated. TSH within normal limits UA negative 11/16/2017 Patient became fluid overloaded last night and was transferred to MICU due to acute hypoxic respiratory failure. Currently patient is on mechanical ventilator. Patient is being continued on IV fluids. Cardiology and pulmonary is following. 2-D echo showed normal ejection fraction. BNP is 1050. Troponin is trending down. Heparin has been discontinued. CPK level is still elevated at 7814 11/17/2017 Patient remained on mechanical ventilator. Otherwise chest x-ray showed improved aeration. CPK level is still elevated. Continued on IV fluids. Patient developed fever t today afternoon. Patient was given a dose of vancomycin. No other significant electrolyte abnormalities noted. Discussed with family at bedside. Pulmonary is planning to wean off from the ventilator. 11/18/2017 Patient is currently on mechanical ventilator. Chest x-ray showed persistent airspace opacities of bilateral upper lungs. Currently on antibiotics in the form of vancomycin and Zosyn. Blood pressure is uncontrolled. Urine output is improving otherwise. Patient was placed pressure support and weaning trial was initiated as the patient became extremely tachypneic and tachycardic and unable to follow commands. CT head was ordered. Which showed cerebellar infarct. Neurology has been consulted as well. 11/19/2017 Patient is currently on mechanical ventilator with assist control. Chest x-ray showed upper lobe infiltrates. EEG showed background rhythm slowing consistent with encephalopathy. Otherwise CPK level is still elevated 13,467. Currently on normal saline at 50 mL per hour. On 11/20/2017 Patient remained on mechanical ventilator. Repeat chest x-ray showed no interval change. Convinced have interstitial edema otherwise blood pressure is uncontrolled. Catapres patch was ordered along with IV beta blockers and Nitropaste. Continued on antibiotics in the form of Zosyn. Patient has been afebrile otherwise. CPK level slightly improved. They'll function worsened with creatinine level increased to 3.48. Nephrology was consulted. Patient is on normal saline at 50 mL per hour. 11/21/2017 Patient remained on mechanical ventilator. repeat CT head showed evolving cerebellar infarctbilaterally. Patient was not has not been responding with sedationholiday andis not able towean off of ventilator Patient does have elevated troponin levelpossiblenon-ST elevated [place] Patient developedatrial fibrillation. Started on heparin drip today Otherwisepatient is havingvery minimal urine output. Blood pressure is notcontrolled.patient is also havingworsening renal function and fluid retention patient also had biliary vomitingyesterday. upon discussing with the family course status has been changed toDO NOT RESUSCITATE. Prognosis isvery poor.awaiting final decisionfrom the family. We will continue with the aggressive medical management at this Complete review of systems could not be obtained from the patient. Current medications reviewed. Objective - Vital Signs Vital signs: Vital Signs Temp 98.4 F 11/21/17 20:00 Pulse 70 11/21/17 22:00 Resp 28 H 11/21/17 22:00 BP 125/48 11/21/17 20:30 Pulse Ox 96 11/21/17 22:00 Intake & Output 11/21/17 11/21/17 11/22/17 06:59 18:59 06:59 Intake Total 4567.967 3029.460 600.943 Output Total 130 1020 150 Balance 1115.810 192.460 450.943 Weight 70.4 kg Intake: IV 672 969.5 534.7 D5W hco3 835 100 Dextrose 5% in Water 1, 300 000 ml @ 100 mls/hr IV . [id number] [facility] with Sodium Bicarb (1 Meq/ml) 150 ml Rx#:[id number] Furosemide 250 mg In 30 Sodium Chloride 0.9% 225 ml @ 10 MG/HR 10 mls/hr IVP .Q24H [facility] Rx#: [id number] Heparin Sod,Pork in 0.45% 50.7 NaCl 25,000 unit In 0.45 % NaCl 1 500ml.bag @ 12 UNITS/KG/HR 16.89 mls/hr IV .Q24H [facility] Rx#: [id number] NS 5 Piperacillin-Tazobactam 3 25.0 .375 gm In Dextrose/Water 1 50ml.bag @ 12.5 mls/hr IVPB Q12HR [facility] Rx#: [id number] Piperacillin-Tazobactam 3 50 12.5 .375 gm In Dextrose/Water 1 50ml.bag @ 12.5 mls/hr IVPB Q8H [facility] Rx#: [id number] Pressure Bag 72 72 24 Sodium Chloride 0.9% 1, 550 50 000 ml @ 50 mls/hr IV . Q20H [facility] Rx#:[id number] Intake, IV Titration 513.810 202.960 36.243 Amount Clevidipine Butyrate 25 196.433 100.000 5.466 mg In Empty Bag 1 bag @ 1 MG/HR 2 mls/hr IV .Q24H [facility] Rx#:[id number] Insulin Regular 100 unit 14.252 30.777 In Sodium Chloride 0.9% 100 ml @ Per Protocol IV .Q0M [facility] Rx#:[id number] Propofol 1,000 mg In 267.377 88.708 Empty Bag 1 bag @ Titrate IV .Q0M [facility] Rx#: [id number] Sodium Chloride 0.9% 1, 50 000 ml @ 50 mls/hr IV . Q20H [facility] Rx#:[id number] Tube Feeding 60 40 0 Other 30 Output: Gastric Drainage 150 Urine 130 20 0 Emesis 1000 Other: Voiding Method Indwelling Catheter Indwelling Catheter Indwelling Catheter # Voids 1 ABP, PAP, CO, CI - Last Documented Arterial Blood Pressure 101/44 - Exam PHYSICAL EXAMINATION: Patient is lying in the bed comfortably, no acute distress, currently on mechanical ventilator HEENT: Normocephalic. Neck is supple. Pupils reactive. Nostrils clear. Oral cavity is moist. Ears reveal no drainage. Neck reveals no JVD, carotid bruits, or thyromegaly. CHEST EXAMINATION: Trachea is central. Symmetrical expansion. Lung gregory clear to auscultation and percussion. CARDIAC: Normal S1, S2 with no gallops. No murmurs ABDOMEN: Soft. Bowel sounds normal. No organomegaly. No abdominal bruits. Extremities: reveal no edema. No clubbing or cyanosis Neurologically: patient is sedated and intubated. No focal deficits noted Skin: No rash or skin lesions. Psychiatric: Could not be assessed Musculoskeletal: No joint swelling or deformity. Normal range of motion. - Labs CBC & Chem 7: 11/21/17 04:50 11/21/17 19:15 Labs: Abnormal Lab Results - Last 24 Hours (Table) 11/21/17 11/21/17 11/21/17 Range/Units 00:07 04:18 04:39 RBC (4.30-5.90) m/uL Hgb (13.0-17.5) gm/dL Hct (39.0-53.0) % MCV (80.0-100.0) fL MCH (25.0-35.0) pg MCHC (31.0-37.0) g/dL RDW (11.5-15.5) % Lymphocytes # (Manual) (1.0-4.8) k/uL Nucleated RBCs (0-0) /100 WBC ABG pH 7.13 L* (7.35-7.45) ABG pCO2 52 H (35-45) mmHg ABG pO2 76 L (83-108) mmHg ABG HCO3 16 L (21-25) mmol/L ABG Total CO2 18 L (19-24) mmol/L ABG O2 Saturation 90.0 L (94-97) % Potassium (3.5-5.1) mmol/L Chloride (98-107) mmol/L Carbon Dioxide (22-30) mmol/L BUN (9-20) mg/dL Creatinine (0.66-1.25) mg/dL Glucose (74-99) mg/dL POC Glucose (mg/dL) 132 H 190 H (75-99) mg/dL Calcium (8.4-10.2) mg/dL Phosphorus (2.5-4.5) mg/dL Magnesium (1.6-2.3) mg/dL AST (17-59) U/L Creatine Kinase (55-170) U/L Total Protein (6.3-8.2) g/dL Albumin (3.5-5.0) g/dL 11/21/17 11/21/17 11/21/17 Range/Units 04:50 04:50 08:27 RBC 3.24 L (4.30-5.90) m/uL Hgb 7.1 L (13.0-17.5) gm/dL Hct 25.1 L (39.0-53.0) % MCV 77.5 L (80.0-100.0) fL MCH 21.8 L (25.0-35.0) pg MCHC 28.4 L (31.0-37.0) g/dL RDW 18.3 H (11.5-15.5) % Lymphocytes # (Manual) 0.39 L (1.0-4.8) k/uL Nucleated RBCs 1 H (0-0) /100 WBC ABG pH (7.35-7.45) ABG pCO2 (35-45) mmHg ABG pO2 (83-108) mmHg ABG HCO3 (21-25) mmol/L ABG Total CO2 (19-24) mmol/L ABG O2 Saturation (94-97) % Potassium 5.6 H (3.5-5.1) mmol/L Chloride 108 H (98-107) mmol/L Carbon Dioxide 14 L (22-30) mmol/L BUN 57 H (9-20) mg/dL Creatinine 5.20 H* (0.66-1.25) mg/dL Glucose 175 H (74-99) mg/dL POC Glucose (mg/dL) 182 H (75-99) mg/dL Calcium 7.2 L (8.4-10.2) mg/dL Phosphorus 10.0 H* (2.5-4.5) mg/dL Magnesium 2.5 H (1.6-2.3) mg/dL AST 142 H (17-59) U/L Creatine Kinase 7104 H (55-170) U/L Total Protein 5.1 L (6.3-8.2) g/dL Albumin 2.4 L (3.5-5.0) g/dL 11/21/17 11/21/17 11/21/17 Range/Units 11:40 13:24 16:23 RBC (4.30-5.90) m/uL Hgb (13.0-17.5) gm/dL Hct (39.0-53.0) % MCV (80.0-100.0) fL MCH (25.0-35.0) pg MCHC (31.0-37.0) g/dL RDW (11.5-15.5) % Lymphocytes # (Manual) (1.0-4.8) k/uL Nucleated RBCs (0-0) /100 WBC ABG pH (7.35-7.45) ABG pCO2 (35-45) mmHg ABG pO2 (83-108) mmHg ABG HCO3 (21-25) mmol/L ABG Total CO2 (19-24) mmol/L ABG O2 Saturation (94-97) % Potassium 6.1 H (3.5-5.1) mmol/L Chloride (98-107) mmol/L Carbon Dioxide 14 L (22-30) mmol/L BUN 59 H (9-20) mg/dL Creatinine 5.27 H* (0.66-1.25) mg/dL Glucose 261 H (74-99) mg/dL POC Glucose (mg/dL) 306 H 313 H (75-99) mg/dL Calcium 7.4 L (8.4-10.2) mg/dL Phosphorus (2.5-4.5) mg/dL Magnesium (1.6-2.3) mg/dL AST 146 H (17-59) U/L Creatine Kinase (55-170) U/L Total Protein 5.2 L (6.3-8.2) g/dL Albumin 2.5 L (3.5-5.0) g/dL 11/21/17 11/21/17 11/21/17 Range/Units 16:58 18:05 19:08 RBC (4.30-5.90) m/uL Hgb (13.0-17.5) gm/dL Hct (39.0-53.0) % MCV (80.0-100.0) fL MCH (25.0-35.0) pg MCHC (31.0-37.0) g/dL RDW (11.5-15.5) % Lymphocytes # (Manual) (1.0-4.8) k/uL Nucleated RBCs (0-0) /100 WBC ABG pH (7.35-7.45) ABG pCO2 (35-45) mmHg ABG pO2 (83-108) mmHg ABG HCO3 (21-25) mmol/L ABG Total CO2 (19-24) mmol/L ABG O2 Saturation (94-97) % Potassium (3.5-5.1) mmol/L Chloride (98-107) mmol/L Carbon Dioxide (22-30) mmol/L BUN (9-20) mg/dL Creatinine (0.66-1.25) mg/dL Glucose (74-99) mg/dL POC Glucose (mg/dL) 304 H 296 H 255 H (75-99) mg/dL Calcium (8.4-10.2) mg/dL Phosphorus (2.5-4.5) mg/dL Magnesium (1.6-2.3) mg/dL AST (17-59) U/L Creatine Kinase (55-170) U/L Total Protein (6.3-8.2) g/dL Albumin (3.5-5.0) g/dL 11/21/17 11/21/17 11/21/17 Range/Units 19:15 20:15 21:17 RBC (4.30-5.90) m/uL Hgb (13.0-17.5) gm/dL Hct (39.0-53.0) % MCV (80.0-100.0) fL MCH (25.0-35.0) pg MCHC (31.0-37.0) g/dL RDW (11.5-15.5) % Lymphocytes # (Manual) (1.0-4.8) k/uL Nucleated RBCs (0-0) /100 WBC ABG pH (7.35-7.45) ABG pCO2 (35-45) mmHg ABG pO2 (83-108) mmHg ABG HCO3 (21-25) mmol/L ABG Total CO2 (19-24) mmol/L ABG O2 Saturation (94-97) % Potassium (3.5-5.1) mmol/L Chloride (98-107) mmol/L Carbon Dioxide 17 L (22-30) mmol/L BUN 64 H (9-20) mg/dL Creatinine 5.90 H* (0.66-1.25) mg/dL Glucose 245 H (74-99) mg/dL POC Glucose (mg/dL) 252 H 228 H (75-99) mg/dL Calcium 6.8 L (8.4-10.2) mg/dL Phosphorus 11.1 H* (2.5-4.5) mg/dL Magnesium 2.6 H (1.6-2.3) mg/dL AST (17-59) U/L Creatine Kinase (55-170) U/L Total Protein (6.3-8.2) g/dL Albumin (3.5-5.0) g/dL 11/21/17 Range/Units 22:09 RBC (4.30-5.90) m/uL Hgb (13.0-17.5) gm/dL Hct (39.0-53.0) % MCV (80.0-100.0) fL MCH (25.0-35.0) pg MCHC (31.0-37.0) g/dL RDW (11.5-15.5) % Lymphocytes # (Manual) (1.0-4.8) k/uL Nucleated RBCs (0-0) /100 WBC ABG pH (7.35-7.45) ABG pCO2 (35-45) mmHg ABG pO2 (83-108) mmHg ABG HCO3 (21-25) mmol/L ABG Total CO2 (19-24) mmol/L ABG O2 Saturation (94-97) % Potassium (3.5-5.1) mmol/L Chloride (98-107) mmol/L Carbon Dioxide (22-30) mmol/L BUN (9-20) mg/dL Creatinine (0.66-1.25) mg/dL Glucose (74-99) mg/dL POC Glucose (mg/dL) 223 H (75-99) mg/dL Calcium (8.4-10.2) mg/dL Phosphorus (2.5-4.5) mg/dL Magnesium (1.6-2.3) mg/dL AST (17-59) U/L Creatine Kinase (55-170) U/L Total Protein (6.3-8.2) g/dL Albumin (3.5-5.0) g/dL Microbiology - Last 24 Hours (Table) 11/15/17 11:20 Blood Culture - Final Blood No Growth after 144 hours 11/16/17 08:52 Blood Culture - Preliminary Blood No Growth after 120 hours 11/16/17 08:42 Blood Culture - Preliminary Blood No Growth after 120 hours Assessment and Plan Assessment: Acute ischemic stroke involving left PICA distribution. Repeat CT showed evolving bilateralerebellar infarct. encephalopathy likely metabolic versus CVA Acute hypoxic respiratory failure likely due to fluid overload. Patient still having bilateral upper lobe persistent of bases new onset atrial fibrillation Hypertensive urgency Status post fall due to bilateral lower admitted weakness. CT head negative for any acute CVA Severe rhabdomyolysis Elevated troponin level. Likely due to rhabdo and unlikely NSTEMI. DC'd heparin Hypertension uncontrolled Diabetes type 2 [id number]. Uncontrolled his B A1c 8.8 Microcytic anemia. Rule out iron deficiency Acute kidney injury. due to ATNwith worsening renal function creatinine of 03 DVT prophylaxis. Plan: Patient will be continued on mechanical ventilator and also on IV fluids. Follow-up CPK level. 2-D echo showed normal ejection fraction. Cardiology and pulmonary is following. Neurology has been consulted. Repeat CT showed new area of decreased attenuation of the left cerebellar inferior. EEG consistent with encephalopathy. Otherwise continue the current management. Further recommendations based on the clinical course. Prognosis is guarded with multiple medical problems and comorbid conditions. Discussed with his daughter and son at bedside in detail. CODE STATUS DNR/DNI Time with Patient: Greater than 30
[2017-11-22 02:11] LABS: Glucose,Whole Blood 154 mg/dL (75-99)
[2017-11-22 03:07] VITALS: PULSE 26
--- NOTE | 2017-11-23 00:05 | P.DS ---
Providers Date of admission: 11/15/17 14:07 Expected date of discharge: 11/22/17 Attending physician: Kylah Valentine Consults: 11/15/17 14:07 Consult Physician Urgent Consulting Provider: Amanda Culver Consult Reason/Comments: elevated trop Do you want consulting provider notified?: Yes 11/16/17 06:13 Consult Physician Stat Consulting Provider: Jae Mae Consult Reason/Comments: ICU Management Do you want consulting provider notified?: Already Contacted 11/18/17 14:08 Consult Physician Routine Consulting Provider: Francine Miller Consult Reason/Comments: not able to follow command, non-purposeful during sedation holiday Do you want consulting provider notified?: Yes 11/20/17 14:58 Consult Physician Routine Consulting Provider: Milad Paz Consult Reason/Comments: rhabdomylysis Do you want consulting provider notified?: Yes, Notify in am Primary care physician: Marquita Landeros Hospital Course: diagnosis Acute ischemic stroke involving left PICA distribution. Repeat CT showed evolving bilateralerebellar infarct. encephalopathy likely metabolic versus CVA Acute hypoxic respiratory failure likely due to fluid overload. Patient still having bilateral upper lobe persistent of bases new onset atrial fibrillation Hypertensive urgency' Status post fall due to bilateral lower admitted weakness. CT head negative for any acute CVA Severe rhabdomyolysis Elevated troponin level. Likely due to rhabdo and unlikely NSTEMI. DC'd heparin Hypertension uncontrolled Diabetes type 2 bac-herfveg-hpjahmoci. Uncontrolled his B A1c 8.8 Microcytic anemia. Rule out iron deficiency Acute kidney injury. due to ATNwith worsening renal function creatinine of 03 DVT prophylaxis. Hospital course Patient is a 72-year-old male with a known history of hypertension, diabetes type 2 wdh-kcbenei-kcztjxlxy came to the hospital with complaints of weakness in his both legs. As per the patient returned has been going on for the past few months which is getting worse for the past 2 weeks. Yesterday he fell on the ground due to he was unable to bear his weight. He fell twice yesterday and once today trying to go to the bathroom. He was on the ground apparently for about 4 hours until his son came in. Otherwise a lemons denied any complaints of chest pain or shortness of breath. No fever no chills. Patient has been having cough congestion and cold as well as a runny nose for the past 2 -3 months as per the patient. Patient denied any alcohol abuse. Patient says that he has been taking his diabetic medications regularly. Otherwise patient is a poor historian. No recent travel or sick contacts at home. Patient lives alone by himself. Chest x-ray showed mild vascular congestion CT head showed no acute intracranial process. Is related chronic small vessel ischemic changes noted. CPK level elevated greater than 2K Troponin slightly elevated. TSH within normal limits UA negative 11/16/2017 Patient became fluid overloaded last night and was transferred to MICU due to acute hypoxic respiratory failure. Currently patient is on mechanical ventilator. Patient is being continued on IV fluids. Cardiology and pulmonary is following. 2-D echo showed normal ejection fraction. BNP is 1050. Troponin is trending down. Heparin has been discontinued. CPK level is still elevated at 7814 11/17/2017 Patient remained on mechanical ventilator. Otherwise chest x-ray showed improved aeration. CPK level is still elevated. Continued on IV fluids. Patient developed fever t today afternoon. Patient was given a dose of vancomycin. No other significant electrolyte abnormalities noted. Discussed with family at bedside. Pulmonary is planning to wean off from the ventilator. 11/18/2017 Patient is currently on mechanical ventilator. Chest x-ray showed persistent airspace opacities of bilateral upper lungs. Currently on antibiotics in the form of vancomycin and Zosyn. Blood pressure is uncontrolled. Urine output is improving otherwise. Patient was placed pressure support and weaning trial was initiated as the patient became extremely tachypneic and tachycardic and unable to follow commands. CT head was ordered. Which showed cerebellar infarct. Neurology has been consulted as well. 11/19/2017 Patient is currently on mechanical ventilator with assist control. Chest x-ray showed upper lobe infiltrates. EEG showed background rhythm slowing consistent with encephalopathy. Otherwise CPK level is still elevated 13,467. Currently on normal saline at 50 mL per hour. On 11/20/2017 Patient remained on mechanical ventilator. Repeat chest x-ray showed no interval change. Convinced have interstitial edema otherwise blood pressure is uncontrolled. Catapres patch was ordered along with IV beta blockers and Nitropaste. Continued on antibiotics in the form of Zosyn. Patient has been afebrile otherwise. CPK level slightly improved. They'll function worsened with creatinine level increased to 3.48. Nephrology was consulted. Patient is on normal saline at 50 mL per hour. 11/21/2017 Patient remained on mechanical ventilator. repeat CT head showed evolving cerebellar infarctbilaterally. Patient was not has not been responding with sedationholiday andis not able towean off of ventilator Patient does have elevated troponin levelpossiblenon-ST elevated [place] Patient developedatrial fibrillation. Started on heparin drip today Otherwisepatient is havingvery minimal urine output. Blood pressure is notcontrolled.patient is also havingworsening renal function and fluid retention patient also had biliary vomitingyesterday. upon discussing with the family course status has been changed toDO NOT RESUSCITATE. Prognosis isvery poor.awaiting final decisionfrom the family. We will continue with the aggressive medical management at this time. Patient on 11/22/2017 at 3:04 AM. Family has been notified and gift of life was informed Patient Condition at Discharge: Fair Plan - Discharge Summary Discharge Rx Participant: No New Discharge Prescriptions: No Action Metoprolol Tartrate [Lopressor] 25 mg PO BID Lisinopril [Zestril] 5 mg PO DAILY metFORMIN HCL [Glucophage] 500 mg PO BID Discharge Medication List Lisinopril [Zestril] 5 mg PO DAILY 11/15/17 [History] Metoprolol Tartrate [Lopressor] 25 mg PO BID 11/15/17 [History] metFORMIN HCL [Glucophage] 500 mg PO BID 11/15/17 [History] Discharge Disposition: - Preliminary Cause of Preliminary Cause of : Acute ischemic stroke involving left PICA distribution
--- NOTE | 2017-11-24 11:26 | CDI ---
Last Revision, October 2017 Documentation Clarification Form Date: 11/24/2017 11:18:00 AM From: Fariha Vo Phone: Admit Date: 11/15/2017 2:07:00 PM Patient Name: Timothy Samuels Visit Number: [id number] Discharge Date: 11/22/17 ATTENTION: The Clinical Documentation Specialists (CDI) and [facility] Coding Staff appreciate your assistance in clarifying documentation. Please respond to the clarification below the line at the bottom and electronically sign. The CDI & [facility] Coding staff will review the response and follow-up if needed. Please note: Queries are made part of the Legal Health Record. If you have any questions, please contact the author of this message via ITS. Dr. Kylah Valentine Atrial fibrillation is documented in the 11/21 PNs and discharge summary. History/Risk Factors: NSTMI, ATN, acute hypoxic respiratory failure, cerebral infarction, strept pneumonia Clinical Indicators: EKG/telemetry: 11.21-atrial fibrillation with a competing junctional pacemaker Treatment: started on anticoagulation after CT of brain In your professional opinion, can you please clarify the type of atrial fibrillation, if known? Chronic/Permanent Paroxysmal Persistent Other, please specify Unable to determine If you have a question about this query, please contact Lina Hayward, Clubhouse Attendant, Sammi Rodas at [phone] between 8am and 5pm. Please continue to document in your progress notes and discharge summary in order to capture severity of illness and risk of mortality. Include clinical findings that support your diagnosis. New onset atrial fibrillation. Persistent MTDD
== END 2017-11-22 05:50 | disposition expired | DRG 64 ==
LOC: EC 09:25 → 6SEL 14:07 → 6ICU 11-16 05:49
PROVIDERS: ADMIT Internal Medicine; ATTEND Internal Medicine
PROC: 03HY32Z Insertion of Monitoring Device into Upper Artery, Percutaneous Approach (ICD-10-PCS; 2017-11-15)
PROC: 4A133B1 Monitoring of Arterial Pressure, Peripheral, Percutaneous Approach (ICD-10-PCS; 2017-11-15)
PROC: 4A133J1 Monitoring of Arterial Pulse, Peripheral, Percutaneous Approach (ICD-10-PCS; 2017-11-15)
PROC: 5A1955Z Respiratory Ventilation, Greater than 96 Consecutive Hours (ICD-10-PCS; principal; 2017-11-16)
PROC: 0BH17EZ Insertion of Endotracheal Airway into Trachea, Via Natural or Artificial Opening (ICD-10-PCS; 2017-11-16)
PROC: 0D9670Z Drainage of Stomach with Drainage Device, Via Natural or Artificial Opening (ICD-10-PCS; 2017-11-16)
PROC: 02HV33Z Insertion of Infusion Device into Superior Vena Cava, Percutaneous Approach (ICD-10-PCS; 2017-11-17)
DX: I63.532 Cerebral infarction due to unspecified occlusion or stenosis of left posterior cerebral artery (principal); N17.0 Acute kidney failure with tubular necrosis; J96.01 Acute respiratory failure with hypoxia; Z99.11 Dependence on respirator [ventilator] status; J13 Pneumonia due to Streptococcus pneumoniae; G93.41 Metabolic encephalopathy; D69.59 Other secondary thrombocytopenia; E87.2 Acidosis; M62.82 Rhabdomyolysis; I48.1 Persistent atrial fibrillation; Z66 Do not resuscitate; E83.39 Other disorders of phosphorus metabolism; E87.5 Hyperkalemia; E87.70 Fluid overload, unspecified; I08.3 Combined rheumatic disorders of mitral, aortic and tricuspid valves; E11.9 Type 2 diabetes mellitus without complications; D50.9 Iron deficiency anemia, unspecified; I16.0 Hypertensive urgency; I10 Essential (primary) hypertension; R29.6 Repeated falls; F17.200 Nicotine dependence, unspecified, uncomplicated; R26.2 Difficulty in walking, not elsewhere classified; F10.11 Alcohol abuse, in remission; Z79.84 Long term (current) use of oral hypoglycemic drugs; Z79.899 Other long term (current) drug therapy; R40.2142 Coma scale, eyes open, spontaneous, at arrival to emergency department; R40.2362 Coma scale, best motor response, obeys commands, at arrival to emergency department; R40.2252 Coma scale, best verbal response, oriented, at arrival to emergency department; W01.0XXA Fall on same level from slipping, tripping and stumbling without subsequent striking against object, initial encounter; Y92.009 Unspecified place in unspecified non-institutional (private) residence as the place of occurrence of the external cause
CPT/HCPCS: 36415; 36600; 70450; 71045; 71046; 72170; 74018; 76770; 80048; 80053; 80061; 80076; 81001; 82140; 82550; 82553; 82728; 82805; 83036; 83540; 83550; 83605; 83735; 83880; 84100; 84443; 84484; 85025; 85610; 85730; 87040; 87070; 87077; 87086; 87186; 87205; 93005; 93306; 94002; 94003; 94640; 94660; 95816; 96361; 96365; 96372; 96375; 96376; 99285